=== PATIENT | male | born 1955 | race Caucasian/White ===

== ENCOUNTER → 2020-12-23 | Outpatient (CLI) | payer MEDICARE ==
[2020-12-23 11:43] LABS: Basophils # (A) 0.1 k/uL (0-0.2); Basophils % (A) 1 %; Eosinophils # (A) 0.2 k/uL (0-0.7); Eosinophils % (A) 2 %; HCT 42.3 % (39.0-53.0); HGB 13.2 gm/dL (13.0-17.5); Lymphocytes # (A) 1.4 k/uL (1.0-4.8); Lymphocytes % (A) 15 %; MCH 33.2 pg (25.0-35.0); MCHC 31.2 g/dL (31.0-37.0); MCV 106.5 fL (80.0-100.0); Macrocytosis Moderate; Monocytes # (A) 0.4 k/uL (0-1.0); Monocytes % (A) 4 %; Neutrophils # (A) 7.4 k/uL (1.3-7.7); Neutrophils % (A) 78 %; Platelet Count 182 k/uL (150-450); RBC 3.97 m/uL (4.30-5.90); RDW 13.1 % (11.5-15.5); WBC 9.6 k/uL (3.8-10.6)
[2020-12-23 12:25] LABS: ALT <6 U/L (4-49); AST 24 U/L (17-59); African American GFR (CKD) 63 (>60 ml/min/1.73 sqM); Albumin 3.7 g/dL (3.5-5.0); Alkaline Phosphatase 122 U/L (38-126); Anion Gap 6 mmol/L; Blood Urea Nitrogen 20 mg/dL (9-20); Carbon Dioxide 31 mmol/L (22-30); Chloride 98 mmol/L (98-107); Glucose 231 mg/dL (74-99); Non-African American GFR(CKD) 55 (>60 ml/min/1.73 sqM); Potassium 4.3 mmol/L (3.5-5.1); Sodium 135 mmol/L (137-145); Total Bilirubin 0.5 mg/dL (0.2-1.3); Total Protein 6.3 g/dL (6.3-8.2)
[2020-12-23 13:02] LABS: Appearance,Urine Clear (Clear); Bilirubin,Urine Negative (Negative); Blood,Urine Negative (Negative); Color,Urine Light Yellow; Glucose,Urine (UA) Trace (Negative); Hyaline Casts,Urine 1 /lpf (0-2); Ketones,Urine Negative (Negative); Leukocyte Esterase,Urine Moderate (Negative); Nitrite,Urine Negative (Negative); PH, Urine 6.5 (5.0-8.0); Protein,Urine Negative (Negative); RBC,Urine 1 /hpf (0-5); Specific Gravity,Urine 1.001 (1.001-1.035); Urobilinogen,Urine <2.0 mg/dL (<2.0); WBC,Urine 8 /hpf (0-5)
== END | disposition home or self-care (01) ==
LOC: LABPAT 10:09
PROVIDERS: ATTEND Urology
DX: Z01.818 Encounter for other preprocedural examination (principal); N52.9 Male erectile dysfunction, unspecified
CPT/HCPCS: 36415; 80053; 81001; 85025

== ENCOUNTER 2020-12-29 07:09 | Day surgery (SDC) | payer MEDICARE ==
[2020-12-23 12:56] VITALS: BMI 23.0
--- NOTE | 2020-12-28 18:46 | P.GSHP ---
History of Present Illness H&P Date: 12/28/20 65 yo male with long history of type 1 DM who has impotence for several years. PDE5 inhibitors no longer work He is not interested in vasoactive injections His physique rules out a vacuum pump He comes for an IPP. The risks and complications including infection, bleeding , pain, lack of satisfaction, failure, erosion among others have been explained understood and accepted. - Constitutional Constitutional: Denies chills, Denies fever - EENT Eyes: denies blurred vision, denies pain Ears, nose, mouth and throat: Denies headache, Denies sore throat - Cardiovascular Cardiovascular: Denies chest pain, Denies shortness of breath - Respiratory Respiratory: Denies cough, Denies 7 - Gastrointestinal Gastrointestinal: Denies abdominal pain, Denies diarrhea, Denies nausea, Denies vomiting - Genitourinary (Female) Genitourinary: Denies dysuria, Denies hematuria - Genitourinary (Male) Genitourinary: Denies dysuria, Denies hematuria - Musculoskeletal Musculoskeletal: Denies myalgias - Integumentary Integumentary: Denies pruritus, Denies rash - Neurological Neurological: Denies numbness, Denies weakness - Psychiatric Psychiatric: Denies anxiety, Denies depression - Endocrine Endocrine: Denies fatigue, Denies weight change Past Medical History Past Medical History: Coronary Artery Disease (CAD), COPD, Diabetes Mellitus, GERD/Reflux, Hypertension, Myocardial Infarction ([place]) Additional Past Medical History / Comment(s): SC 2017 post op after bowel surgery, insulin pump, Parkinsons Last Myocardial Infarction Date:: 2016 History of Any Multi-Drug Resistant Organisms: None Reported Past Surgical History: AICD, Bowel Resection, Coronary Bypass/CABG, Heart Catheterization, Orthopedic Surgery Additional Past Surgical History / Comment(s): 1994-quad bypass, arthroscopy anat knees, "surgery becuase I was peeing too much"-not sure what surgery, anat cataracts Past Anesthesia/Blood Transfusion Reactions: No Reported Reaction Type of Cardiac Device: AICD Device Placement Date:: 08/23/2017- Loladex Smoking Status: Former smoker - Past Family History Mother Family Medical History: Cancer Additional Family Medical History / Comment(s): breast cancer Father Family Medical History: Cancer Brother(s) Family Medical History: Cancer Medications and Allergies Home Medications Medication Instructions Recorded Confirmed Type Amitriptyline HCl [Elavil] 50 mg PO HS 12/23/20 12/23/20 History Aspirin [Adult Low Dose Aspirin EC] 81 mg PO QAM 12/23/20 12/23/20 History Atorvastatin [Lipitor] 20 mg PO HS 12/23/20 12/23/20 History Carbidopa-Levodopa 25-100 mg 1 each PO QID 12/23/20 12/23/20 History [Sinemet 25-100] Cholecalciferol (Vitamin D3) 125 mcg PO DAILY 12/23/20 12/23/20 History [Vitamin D3 (5000 Iu)] Clopidogrel Bisulfate [Plavix] 75 mg PO DAILY 12/23/20 12/23/20 History Cyanocobalamin (Vitamin B-12) 1,000 mcg PO DAILY 12/23/20 12/23/20 History [Vitamin B-12] Famotidine 40 mg PO DAILY 12/23/20 12/23/20 History Ferrous Sulfate [Feosol] 325 mg PO DAILY 12/23/20 12/23/20 History Fexofenadine HCl [Steff Allergy] 180 mg PO DAILY PRN 12/23/20 12/23/20 History Fludrocortisone [Florinef] 0.05 mg PO BID 12/23/20 12/23/20 History Fluticasone Nasal [place] [Flonase 1 spray EA NOSTRIL DAILY 12/23/20 12/23/20 History Nasal [place]] Furosemide [Lasix] 20 mg PO DAILY 12/23/20 12/23/20 History Gabapentin 300 mg PO TID 12/23/20 12/23/20 History Insulin Aspart (For Pump) [NovoLOG 0.01 unit SQ-PUMP CONTINUOUS 12/23/20 12/23/20 History (For Pump)] Isosorbide Mononitrate [Isosorbide 30 mg PO DAILY 12/23/20 12/23/20 History Mononitrate ER] Magnesium Oxide 800 mg PO BID 12/23/20 12/23/20 History Metoprolol Tartrate [Lopressor] 25 mg PO BID 12/23/20 12/23/20 History Montelukast [Singulair] 10 mg PO HS 12/23/20 12/23/20 History Pantoprazole [Protonix] 40 mg PO QAM 12/23/20 12/23/20 History Potassium Chloride 20 meq PO BID 12/23/20 12/23/20 History Tamsulosin [Flomax] 0.4 mg PO DAILY 12/23/20 12/23/20 History lisinopriL [Zestril] 2.5 mg PO DAILY 12/23/20 12/23/20 History rOPINIRole HCL [Requip] 2 mg PO HS 12/23/20 12/23/20 History traMADol HCL [Ultram] 50 mg PO BID PRN 12/23/20 12/23/20 History Allergies Allergy/AdvReac Type Severity Reaction Status Date / Time No Known Allergies Allergy Verified 12/23/20 12:29 Surgical - Exam - General well developed, well nourished, no distress - Eyes PERRL - ENT no hearing loss - Neck trachea midline - Respiratory normal expansion, normal respiratory effort - Cardiovascular Rhythm: regular - Abdomen Abdomen: soft, non tender - Genitourinary normal penis with no external lesions, testicles present - Integumentary no rash, no growths - Neurologic normal coordination, normal sensation - Musculoskeletal normal gait, normal posture - Psychiatric oriented to time, oriented to person, oriented to place, speech is normal, memory intact Assessment and Plan Assessment: Impression: 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
[~2020-12-29 07:09] MED LIST: AMPICILLIN 1,000 MG in SODIUM CHLORIDE 0.9% 50 ML IVPB PRN; DEXAMETHASONE SOD PHOSPHATE 4 MG/ML 1 ML VIAL IV ONE; LACTATED RINGERS 1,000 ML IV SCH; LIDOCAINE 1% (10MG/ML) FOR IV START INTRADERMA PRN; ONDANSETRON 4 MG/2 ML VIAL IVP ONE
[2020-12-29 07:45] VITALS: TEMP 98.3
[2020-12-29 08:05] LABS: Glucose,Whole Blood 156 mg/dL (75-99)
[2020-12-29] MEDS ORDERED: fentaNYL (PF) 50 MCG/ML 2 ML AMP ONE (08:12)
[2020-12-29] MEDS ORDERED: KETOROLAC 15 MG/ML 1 ML VIAL ONE (08:12)
[2020-12-29] MEDS ORDERED: SUCCINYLCHOLINE CHLORIDE 100 MG/5 ML SYR IV ONE (08:12)
[2020-12-29] MEDS ORDERED: LIDOCAINE 1% INJ 10MG/ML (20 ML MDV) ONE (08:12)
[2020-12-29] MEDS ORDERED: GLYCOPYRROLATE 0.2 MG/ML 2 ML VIAL ONE (08:12)
[2020-12-29] MEDS ORDERED: ROCURONIUM 10 MG/ML (5 ML VIAL) IV ONE (08:12)
[2020-12-29] MEDS ORDERED: NEOSTIGMINE 1 MG/ML 10 ML VIAL ONE (08:12)
[2020-12-29] MEDS ORDERED: MIDAZOLAM 2 MG/2 ML VIAL ONE (08:12)
[2020-12-29] MEDS ORDERED: PROPOFOL 10 MG/ML 20 ML VIAL IV ONE (08:12)
[2020-12-29] MEDS: GENTAMICIN 110 MG in SODIUM CHLORIDE 0.9% 100 ML IVPB PRN ×2 (08:21→08:42)
[2020-12-29] MEDS ORDERED: GENTAMICIN 80 MG in SODIUM CHLORIDE 0.9% 200 ML IRRIGATION ONE (08:46)
--- NOTE | 2020-12-29 09:39 | P.OP ---
Date of Procedure: 12/29/20 Preoperative Diagnosis: Esperanza impotence secondary to diabetes mellitus Postoperative Diagnosis: Same Procedure(s) Performed: Insertion of inflatable penile prosthesis, AMS, CX series 700 with 65 mL reservoir 18 cm +1 cm rear-tip hydrostatic tubing tester Anesthesia: HILLARY Surgeon: Juan F Moon Estimated Blood Loss (ml): 25 Pathology: none sent Condition: stable Disposition: PACU Indications for Procedure: Patient is 65. He is a 50 year history of insulin-dependent diabetes. He has impotence. He failed oral medications. He declines vasoactive injections. He comes for a penile implant. Description of Procedure: Patient is brought to the operating suite. He is given a general endotracheal anesthesia. He is prepped and draped sterilely. A midline infrapubic incision is made. I dissect down through the subcutaneous tissue. The lower end of the rectus fascias identified and opened. The prevesical space is developed. I then approached the penis. Each corpora cavernosum identified and cleaned from surrounding connective tissue. Stay stitches with 3-0 PDS are placed in each corpora. Corporotomies were made bilaterally. The corpora dilated proximally and distally first with Metzenbaum scissors and then Hegar dilators 9-13. I measured the corpora 9 cm proximal 10 cm distal on the right and 10 cm proximal and 9 cm distal on the left. I thus we'll use an 18 cm CX cylinder with 1 cm rear tip extenders and a 65 mL balloon. An implant or prepped on the back table. The reservoir was placed in the prevesical space and the tubing brought out through the right external inguinal ring. It is insufflated to 65 mL and sits nicely. The rectus fascias closed with a running 0 PDS. His the Torito introducer and pass the implant distally through the head of the penis with the Ayush needle bilaterally. The implant is then placed proximally and then inflated and seats nicely bilaterally. The corporotomies are closed with 3-[address] the in the scrotum with the button a seen anterior. It sits nicely. Then connected the reservoir to the pump with straight connects a. Then pump and deflate the implant and seats nicely without ST deformity. His irrigated thoroughly with antibiotic solution. The wound is closed with 3-0 chromic subcutaneous and then a 4-0 Vicryl subcuticular. Shows awake and returned recovery room in good condition. Prior this a Davison catheter is passed in and out with clear urine return and no difficulty. The procedure well be discharged home upon recovery and found the office in one week. Blood loss is approximately 25 mL.
[2020-12-29] MEDS ORDERED: LACTATED RINGERS 1,000 ML IV ONE (10:03)
[2020-12-29 10:25] VITALS: RESP 16
[2020-12-29 10:26] LABS: Glucose,Whole Blood 141 mg/dL (75-99)
[2020-12-29 11:03] VITALS: BP 140/78; PULSE 59
== END 2020-12-29 11:22 | disposition home or self-care (01) ==
LOC: OR 07:09
PROVIDERS: ATTEND Urology
DX: E10.69 Type 1 diabetes mellitus with other specified complication (principal); N52.1 Erectile dysfunction due to diseases classified elsewhere; I25.10 Atherosclerotic heart disease of native coronary artery without angina pectoris; J44.9 Chronic obstructive pulmonary disease, unspecified; K21.9 Gastro-esophageal reflux disease without esophagitis; I10 Essential (primary) hypertension; I25.2 Old myocardial infarction; E78.5 Hyperlipidemia, unspecified; I42.9 Cardiomyopathy, unspecified; I25.810 Atherosclerosis of coronary artery bypass graft(s) without angina pectoris; E78.2 Mixed hyperlipidemia; G20 Parkinson's disease; Z87.891 Personal history of nicotine dependence; Z79.4 Long term (current) use of insulin; Z79.82 Long term (current) use of aspirin; Z79.899 Other long term (current) drug therapy; Z80.3 Family history of malignant neoplasm of breast; Z95.1 Presence of aortocoronary bypass graft; Z95.810 Presence of automatic (implantable) cardiac defibrillator
CPT/HCPCS: 54401; C1813; J2250; J1580 ×2; J1100; J2710; J2405; J2001; J3010; J0290; J1885; J0330; J2704

== ENCOUNTER 2022-06-15 07:39 | Day surgery (SDC) | payer MEDICARE ==
[~2022-06-15 07:39] MED LIST changes: +ACETAMINOPHEN TAB 500 MG TAB PO PRN; -AMPICILLIN 1,000 MG in SODIUM CHLORIDE 0.9% 50 ML IVPB PRN; +GABAPENTIN 300 MG CAP PO PRN; -LACTATED RINGERS 1,000 ML IV SCH; -LIDOCAINE 1% (10MG/ML) FOR IV START INTRADERMA PRN; +MELOXICAM 7.5 MG TAB PO PRN; +ONDANSETRON 4 MG/2 ML VIAL IVP PRN; +TRANEXAMIC ACID IN NACL,ISO-OS 1,000 MG in SALINE 1 100ML.BAG IVPB PRN
[2022-06-15] MEDS ORDERED: LACTATED RINGERS 1,000 ML IV ONE ×3 (08:09→10:12)
[2022-06-15 08:19] LABS: Glucose,Whole Blood 63 mg/dL (70-110)
[2022-06-15] MEDS ORDERED: DEXTROSE 50% SYRINGE 50 ML IVP ONE (08:24)
[2022-06-15 08:49] LABS: Calcium 8.6 mg/dL (8.4-10.2); Potassium 3.5 mmol/L (3.5-5.1)
[2022-06-15 08:57] LABS: Glucose,Whole Blood 102 mg/dL (70-110)
[2022-06-15] MEDS ORDERED: MIDAZOLAM 2 MG/2 ML VIAL IVP ONE (09:10)
[2022-06-15] MEDS ORDERED: TEMAZEPAM 15 MG CAP PO PRN (09:18)
[2022-06-15] MEDS ORDERED: bisacodyL 10 MG SUPP RECTAL PRN (09:18)
[2022-06-15] MEDS ORDERED: ONDANSETRON 4 MG/2 ML VIAL IVP PRN (09:18)
[2022-06-15] MEDS ORDERED: MAGNESIUM HYDROXIDE 2,400 MG/10 ML CUP PO PRN (09:18)
[2022-06-15] MEDS ORDERED: ACETAMINOPHEN TAB 325 MG TAB PO PRN (09:18)
[2022-06-15] MEDS ORDERED: NA PHOS,M-B/NA PHOS,DI-BA 133 ML ENEMA RECTAL PRN (09:18)
[2022-06-15] MEDS ORDERED: NALOXONE 0.4 MG/ML 1 ML VIAL IV PRN (09:18)
[2022-06-15] MEDS ORDERED: HYDROmorphone 0.5 MG/0.5 ML SYRINGE IVP PRN ×3 (09:18)
[2022-06-15] MEDS ORDERED: HYDROcodone/APAP 10-325MG 1 EACH TAB PO PRN (09:21)
[2022-06-15] MEDS ORDERED: fentaNYL (PF) 50 MCG/ML 2 ML AMP ONE (09:32)
[2022-06-15] MEDS ORDERED: ROPIVACAINE 5 MG/ML 30 ML VIAL ONE (09:32)
[2022-06-15] MEDS ORDERED: PROPOFOL 10 MG/ML 20 ML VIAL IV ONE (09:32)
[2022-06-15] MEDS ORDERED: TRANEXAMIC ACID IN NACL,ISO-OS 1,000 MG/100 ML BAG ONE (09:32)
[2022-06-15] MEDS ORDERED: MIDAZOLAM 2 MG/2 ML VIAL ONE (09:32)
[2022-06-15] MEDS ORDERED: ceFAZolin 3,000 MG in SODIUM CHLORIDE 0.9% IRRIGATIO 3,000 ML IRRIGATION ONE (10:05)
[2022-06-15] MEDS ORDERED: ROPIVACAINE 0.2%-NS ON-Q PUMP 1,090 MG, EMPTY PAIN BALL 1 EACH MISCELLANE PRN (11:27)
--- NOTE | 2022-06-15 11:30 | P.ANPRN ---
Procedure Note - Anesthesia - Nerve Block Performed Right Adductor Canal Infusion Time Out Performed: Yes (0910) Date of Procedure: 06/15/22 Procedure Start Time: : Procedure Stop Time: :18 Location of Patient: PreOp Indication: Acute Post-Operative Pain, Dx/Pain Location (Right Knee), Requested by Surgeon Specifically requested for management of pain by DrRubén: Tayo Horn Sedation Type: Sedate with meaningful contact maintained Preparation: Sterile Prep, Sterile Dressing Position: Supine Catheter: Indwelling Needle Types: Pajunk Needle Gauge: 18 Ultrasound used to visualize needle placement: Yes Ultrasound used to observe medication spread: Yes Injectate: 0.5% Ropivacaine (see comment for volume) (15 cc) Blood Aspirated: No Pain Paresthesia on Injection Noted: No Resistance on Injection: Normal Image Stored and Saved: Yes Events: Uneventful and Well Tolerated Right iPack Single Time Out Performed: Yes Date of Procedure: 06/15/22 Location of Patient: PreOp Indication: Requested by Surgeon Specifically requested for management of pain by DrRubén: Tayo Horn Sedation Type: Sedate with meaningful contact maintained Preparation: Sterile Prep Position: Left Lateral Catheter: None Needle Types: Pajunk Needle Gauge: 21 Ultrasound used to visualize needle placement: Yes Ultrasound used to observe medication spread: Yes Injectate: 0.5% Ropivacaine (see comment for volume) (15 cc) Blood Aspirated: No Pain Paresthesia on Injection Noted: No Resistance on Injection: Normal Image Stored and Saved: Yes Events: Uneventful and Well Tolerated
[2022-06-15 11:56] LABS: Glucose,Whole Blood 114 mg/dL (70-110)
--- NOTE | 2022-06-15 12:27 | XR ---
EXAMINATION TYPE: XR knee limited RT DATE OF EXAM: 06/15/2022 CLINICAL HISTORY: Right knee pain and arthritis status post total knee replacement. TECHNIQUE: Portable AP and crosstable lateral views of the right knee are obtained immediately posto peratively. COMPARISON: None FINDINGS: Metallic hardware from total right knee arthroplasty is seen and appears satisfactory in a lignment and position. There is evidence of recent surgery with diffuse subcutaneous gas and soft ti ssue swelling noted. IMPRESSION: METALLIC HARDWARE FROM TOTAL RIGHT KNEE ARTHROPLASTY IS SATISFACTORY IN ALIGNMENT.
[2022-06-15] MEDS: HYDROmorphone 0.5 MG/0.5 ML SYRINGE IVP PRN ×3 (12:29→13:27)
[2022-06-15] MEDS: LACTATED RINGERS 1,000 ML IV SCH ×3 (13:34→18:04)
[2022-06-15] MEDS ORDERED: INSPUCOR MISCELLANE PRN (14:52)
[2022-06-15] MEDS ORDERED: INSULIN ASPART (NovoLOG) 100 UNIT/ML VIAL SQ PRN (14:52)
[2022-06-15] MEDS ORDERED: INSULIN PUMP BASAL RATES 1 EACH MISC MISCELLANE PRN (14:52)
[2022-06-15] MEDS ORDERED: Insulin Aspart (For Pump) 100 UNIT/ML VIAL SQ-PUMP SCH (15:15)
[2022-06-15] MEDS: HYDROcodone/APAP 10-325MG 1 EACH TAB PO PRN ×2 (15:19→21:11)
--- NOTE | 2022-06-15 16:22 | P.CONS ---
History of Present Illness - Reason for Consult Consult date: 06/15/22 Medical management Requesting physician: Tayo Horn - Chief Complaint Right knee pain - History of Present Illness This is a pleasant 67-year-old patient, follows with Dr. Merida. Chronic stable medical conditions include CAD with a prior history of bypass before by Dr. Gold, diabetes, GERD, hypertension, hyperlipidemia, hypothyroid. Patient has undergone right total knee arthroplasty. Postprocedure pain is controlled. No nausea vomiting. Resting in bed. Review of systems: GEN.: Tired EYES: None HEENT: None NECK: None RESPIRATORY: None CARDIOVASCULAR: None GASTROINTESTINAL: None GENITOURINARY: None MUSCULOSKELETAL: Joint pains] LYMPHATICS: None HEMATOLOGICAL: None PSYCHIATRY: None NEUROLOGICAL: None Past medical history to include: CAD with a bypass, diabetes, GERD, hypertension, hyperlipidemia, hypothyroid, AICD, coronary bypass Social history: Lives at a fpc. Smoked for about 30 years stopped about 8 years ago. No alcohol. Physical examination: VITAL SIGNS: 97.7, 65, 16, 105% 61, 97% room air GENERAL: BMI 21.8, reclining in bed awake not in distress. EYES: Pupils equal. Conjunctiva normal. HEENT: External appearance of nose and ears normal, oral cavity grossly normal. NECK: JVD not raised; masses not palpable. HEART: First and second heart sounds are normal; no edema. LUNGS: Respiratory rate normal; clear to auscultation. ABDOMEN: Soft, nontender, liver spleen not palpable, no masses palpable. PSYCH: Alert and oriented x3; mood and affect normal. MUSCULOSKELETAL:No Clubbing/cyanosis;muscles-grossly intact, evidence of OA. Dressing over the right knee NEUROLOGICAL: Cranial nerves grossly intact; no facial asymmetry, power and sensation grossly intact. LYMPHATICS: No lymph nodes palpable in the axilla and neck INVESTIGATIONS, reviewed in the clinical context: Potassium 3.5 BUN 19 creatinine 1.4 Assessment and plan: -Right total knee arthroplasty. Pain control. Due to prophylaxis. -CAD with a prior history of bypass Aspirin, Lopressor, -Restless leg syndrome Recurrent -Parkinson's disease Sinemet 2500 one tablet 4 times a day -Hyperlipidemia Lipitor -Essential hypertension Zestril, Lopressor -GERD Protonix -BPH Flomax Home medications reviewed. Pain control. DVT prophylaxis. Activity per orthopedics. Care was discussed with the patient. Questions answered. Thank you Dr. Horn Past Medical History Past Medical History: Coronary Artery Disease (CAD), Diabetes Mellitus, GERD/Reflux, Hyperlipidemia, Hypertension, Myocardial Infarction ([place]), Thyroid Disorder Last Myocardial Infarction Date:: 04/2017 History of Any Multi-Drug Resistant Organisms: None Reported Past Surgical History: AICD, Coronary Bypass/CABG, Heart Catheterization, Pacemaker Additional Past Surgical History / Comment(s): REPAIR OF DIAPHRAGM HOLE. ([facility] HIATAL HERNIA REPAIRED. Catarac surgery 2017 Past Anesthesia/Blood Transfusion Reactions: No Reported Reaction Type of Cardiac Device: AICD Device Placement Date:: 08/26/17 Past Psychological History: No Psychological Hx Reported Smoking Status: Former smoker Past Alcohol Use History: None Reported Past Drug Use History: None Reported Additional Drug Use History / Comment(s): patient states he smoked for 30 years and "started in his 20's. Stopped about 8 years ago" - Past Family History Mother Family Medical History: Cancer Additional Family Medical History / Comment(s): BREAST Father Family Medical History: Cancer Brother(s) Family Medical History: Cancer Additional Family Medical History / Comment(s): ESOPHAGEAL CANCER Medications and Allergies Home Medications Medication Instructions Recorded Confirmed Type Aspirin [Adult Low Dose Aspirin EC] 81 mg PO QAM 12/23/20 06/12/22 History Atorvastatin [Lipitor] 20 mg PO HS 12/23/20 06/12/22 History Carbidopa-Levodopa 25-100 mg 1 each PO QID 12/23/20 06/12/22 History [Sinemet 25-100] Cholecalciferol (Vitamin D3) 125 mcg PO DAILY 12/23/20 06/12/22 History [Vitamin D3 (5000 Iu)] Clopidogrel Bisulfate [Plavix] 75 mg PO DAILY 12/23/20 06/12/22 History Cyanocobalamin (Vitamin B-12) 1,000 mcg PO DAILY 12/23/20 06/12/22 History [Vitamin B-12] Famotidine 40 mg PO QAM 12/23/20 06/12/22 History Ferrous Sulfate [Feosol] 325 mg PO DAILY 12/23/20 06/12/22 History Fludrocortisone [Florinef] 0.05 mg PO BID 12/23/20 06/12/22 History Fluticasone Nasal [place] [Flonase 1 spray EA NOSTRIL DAILY 12/23/20 06/12/22 History Nasal [place]] Furosemide [Lasix] 20 mg PO QAM 12/23/20 06/12/22 History Gabapentin 300 mg PO TID 12/23/20 06/12/22 History Insulin Aspart (For Pump) [NovoLOG 0.01 unit SQ-PUMP CONTINUOUS 12/23/20 06/12/22 History (For Pump)] Isosorbide Mononitrate [Isosorbide 30 mg PO QAM 12/23/20 06/12/22 History Mononitrate ER] Magnesium Oxide 800 mg PO BID 12/23/20 06/12/22 History Metoprolol Tartrate [Lopressor] 25 mg PO BID 12/23/20 06/12/22 History Montelukast [Singulair] 10 mg PO HS 12/23/20 06/12/22 History Pantoprazole [Protonix] 40 mg PO QAM 12/23/20 06/12/22 History Potassium Chloride [Potassium 20 meq PO BID 12/23/20 06/12/22 History Chloride ER] Tamsulosin [Flomax] 0.4 mg PO DAILY 12/23/20 06/12/22 History lisinopriL [Zestril] 2.5 mg PO QAM 12/23/20 06/12/22 History rOPINIRole HCL [Requip] 2 mg PO HS 12/23/20 06/12/22 History traMADol HCL [Ultram] 50 mg PO BID PRN 12/23/20 06/12/22 History Allergies Allergy/AdvReac Type Severity Reaction Status Date / Time No Known Allergies Allergy Verified 06/12/22 11:37 Physical Exam Vitals: Vital Signs Temp Pulse Pulse Resp BP BP Pulse Ox 06/15/22 13:50 97.7 F 65 16 105/61 97 06/15/22 13:25 64 16 113/62 97 06/15/22 12:55 69 16 118/63 96 06/15/22 12:40 65 16 119/64 97 06/15/22 12:25 61 18 116/66 97 06/15/22 12:10 62 16 114/62 97 06/15/22 11:55 74 16 109/60 96 06/15/22 11:39 96.9 F L 71 18 95/69 96 06/15/22 09:28 66 18 112/63 99 06/15/22 08:12 98.1 F 82 18 139/65 97 Intake and Output 06/15/22 06/15/22 06/15/22 06:59 14:59 22:59 Intake Total 1651 Output Total 100 Balance 1551 Intake: IV 1651 Output: Estimated Blood Loss 100 Other: Weight 71 kg Results CBC & Chem 7: 06/15/22 08:13 Labs: Abnormal Lab Results - Last 24 Hours (Table) 06/15/22 06/15/22 06/15/22 Range/Units 08:13 08:17 11:53 Carbon Dioxide 31 H (22-30) mmol/L Creatinine 1.40 H (0.66-1.25) mg/dL Glucose 54 L (74-99) mg/dL POC Glucose (mg/dL) 63 L 114 H (70-110) mg/dL
[2022-06-15] MEDS: GABAPENTIN 300 MG CAP PO SCH ×2 (16:37→22:59)
[2022-06-15] MEDS: CARBIDOPA-LEVODOPA 25-100 MG 1 EACH TAB PO SCH ×3 (16:38→22:59)
[2022-06-15 20:38] LABS: Glucose,Whole Blood 214 mg/dL (70-110)
[2022-06-15] MEDS: MAGNESIUM OXIDE 400 MG TAB PO SCH (21:10)
[2022-06-15] MEDS: ATORVASTATIN 20 MG TAB PO SCH (21:10)
[2022-06-15] MEDS: SENNOSIDES-DOCUSATE SODIUM 1 EACH TAB PO SCH (21:10)
[2022-06-15] MEDS: METOPROLOL TARTRATE 25 MG TAB PO SCH (21:11)
[2022-06-15] MEDS: MONTELUKAST 10 MG TAB PO SCH (21:11)
[2022-06-15] MEDS: POTASSIUM CHLORIDE ER 20 MEQ TAB.ER PO SCH (21:11)
--- NOTE | 2022-06-15 21:21 | OP ---
OPERATIVE REPORT PREOPERATIVE DIAGNOSIS: Right knee osteoarthrosis. POSTOPERATIVE DIAGNOSIS: Right knee osteoarthrosis. PROCEDURE PERFORMED: Right total knee arthroplasty. ANESTHESIA: Spinal with sedation. ESTIMATED BLOOD LOSS: 100 mL. TOURNIQUET TIME: 61 minutes at 250 mmHg. COMPLICATIONS: None apparent. DRAINS: None. DISPOSITION: Postanesthesia care unit. INDICATIONS FOR PROCEDURE: Juan F is a very pleasant 67-year-old male with longstanding history of right knee pain. History and physical examination are consistent with advanced right knee osteoarthrosis. He has been through significant nonoperative management up to this point. Further treatment options were discussed, and he has decided to go forward with the right total knee arthroplasty. Risks of procedure were discussed with him in detail. These risks included, but were not limited to risk of infection, nerve damage, bleeding, pain, and a small risk of deep vein thrombosis which could lead to fatal pulmonary embolism. There is also risk of loosening of the implant which could require revision operation. The patient understands these risks. All of his questions were answered to his satisfaction. An appropriate informed consent was obtained. DESCRIPTION OF PROCEDURE: The patient was identified in the preoperative holding area. The surgical site was marked by both the patient and myself. He was given 2 g of Ancef IV for prophylactic purposes. He was then transferred to the operative suite. He was placed supine on the operating room table. Spinal anesthetic was then administered and dosed per the Anesthesia Department without apparent complication. Examination under anesthesia was then performed. The patient was 5 to 7 degrees shy of full extension. He had 100 degrees of flexion, and the medial collateral ligament, lateral collateral ligament, and posterior cruciate ligaments were stable. Tourniquet was then placed high on the right upper thigh and well-padded in preparation for surgery. The patient's right lower extremity was then prepped and draped in usual sterile fashion. Standard surgical pause was undertaken to ensure that we were operating the correct site and that appropriate preoperative antibiotics had been given. All staff in the room were in agreement, and we proceeded. The outlines of the patella were marked with a surgical pen. A planned 12 cm vertical incision centered over the patella was marked with a surgical pen. The leg was then exsanguinated with an Esmarch dressing. The knee was then flexed, and the tourniquet was inflated to 250 mmHg. The total tourniquet time for the procedure was 61 minutes. Incision was then made with a 10-blade scalpel. Dissection was carried down sharply overlying the fascia. Great care was taken to minimize the skin flaps. The knee was then exposed using a standard medial parapatellar approach. A small cuff of quadriceps tendon was then left for suturing. He was in a bit of varus preoperatively. A standard medial release was then made. Superficial medial collateral ligament was dissected off the bone around to the posterior aspect of the proximal tibia. The medial meniscus was then excised as well. The lateral meniscus was also released anteriorly. The leg was then externally rotated. The patella was everted. The knee was flexed. The retractors were then placed to protect the collateral ligaments. I then proceeded to remove the infrapatellar fat pad. This was excised sharply tangentially with fibers of the patellar tendon. I then proceeded to remove the peripheral osteophytes. This was done with a rongeur. I then proceeded with the distal femoral resection. He did have a small flexion contracture. A planned 11 mm resection was then done. The femoral canal was then entered in the midline of the femur approximately 10 mm anterior to the origin of the posterior cruciate ligament. The jenny was then advanced down to the center of the femur and placed intramedullary. Based on the preoperative radiographs, the angle between the anatomic and mechanical axis of the femur was approximately 4 to 5 degrees. The valgus angle of the distal femoral cutting guide was then set at 4 degrees for the right knee. The distal femoral cutting guide was then advanced over the intramedullary jenny. This was seated firmly against the femur. I then as mentioned planned to take 9 mm off the distal femur. The cutting block was then secured onto the femur with pins. The jig was then removed. The distal femoral cut was made through the slot of the block. The pins were then removed. The distal femoral cutting block was removed. The accuracy of the distal femoral cuts was checked with 2 flat bars. I then proceeded with femoral sizing. Posterior referencing sizing guide was held firmly against the resected distal surface of the femur. The posterior condyles were resting on the posterior plane of the guide. The sizing stylus was then placed onto the anterior femur. The size was measured as a size 7. I then assessed for femoral rotation. The plan was for 3 degrees of external rotation. Three degrees of external rotation was placed onto the jig. These holes were then marked. I then confirmed the rotation by 3 separate methods. This was done using epicondylar axis as well as Arroyo's line and posterior referencing. It was deemed that the external rotation was proper. I then went forward and placed the femoral cutting block. This was placed over the previously-placed pin holes. The Johnny wing was then placed onto the anterior slots to ensure that we would not notch the anterior femur with the anterior femoral cut. I then proceeded with the anterior femoral cut. This was flush with the anterior cortex of the femur. The posterior cuts were then made followed by the anterior chamfer cut, then the posterior chamfer cut. The cutting block was then removed. Throughout the resection, the collateral ligaments were protected with retractors. I then placed a trial size 7 femur. It fit very nice medial-lateral and fit flush with the distal end of the femur. The drill hole was then made. I then proceeded with the tibial cut. I planned for cruciate-retaining knee. The guide was placed and set for varus and valgus and for slope. The height was set for approximate 2 mm resection from the medial tibial plateau, which was the lower side. I was happy with the alignment and the amount of resection. The cutting block was then pinned to the proximal tibia. The alignment jenny was removed, and the proximal tibia was resected with a reciprocating saw. Again, this was done with retractors protecting the collateral ligaments as well as the posterior cruciate ligament. I then proceeded to evaluate the flexion and extension gaps. A 10 mm block was then placed. The flexion and extension gaps were equal. I then proceeded with resection of the posterior osteophytes. He had very minimal posterior osteophytes. This was done using a curved osteotome. This resected the posterior osteophytes, and posterior capsular stripping was done off the posterior aspect of the femur at this time. The osteophytes were then removed. I then proceeded with resection of the patella. The thickness of the patella was measured using the caliper. The thickness was 22 mm. The thickness of the anticipated patellar dome was taken into account. Resection was then performed and confirmed to be equal in 4 quadrants using a caliper. Approximately 14 mm of bone remained after resection. A 29 x 8 standard patellar trial was then placed. The holes were drilled, and the trial was then placed. I then proceeded with sizing the tibial plate. A size E tibial plate fit very nicely. I then placed the trial femur, the tibial tray, and the patellar button. A 10 mm trial tibial insert was also placed. The components fit very nicely. He had full extension and flexion. The extension and flexion gaps were equal and stable to both varus and valgus stress. The patella tracked appropriately. Tibial tray rotation was then marked with a Bovie. This was externally rotated properly. I then proceeded with tibial preparation. I first drilled the femoral holes and removed the femoral component. The tibial tray was then set for proper external rotation as well as medial and lateral placement onto the tibia. It was then pinned into place. I then proceeded with punching the keel. I then decided to proceed with cementing of all of our components. The knee was thoroughly irrigated with sterile saline solution via pulsed lavage. The lateral genicular artery was identified and cauterized. All blood was removed from the bone of the tibia, femur, and patella with pulsed lavage. I then proceeded with cementing. Two packs of antibiotic bone cement prepared on the back table by surgical supplies sterilizer. I then proceeded with cementing of the tibia first. The cement was impacted into the keel as well as deeply seated into the bone. A second coat of cement was then placed. The tibia was then impacted into place. Excess cement was removed with [place]ens[place]'s and Joker's. I then proceeded with cementing of the femoral component. The femoral component was also cemented using standard technique. Excess cement was removed. A 10 mm trial insert was then placed into the knee. It was brought into full extension with a constant axial load placed until the cement had hardened. The patellar component was then cemented. This was held firmly with a compressive device until the cement had dried. When the cement had dried, the knee was taken out of extension. All excess cement was removed from around the prosthesis. I then trialed the knee with a 10 mm insert. Flexion and extension gaps were appropriate. The knee was stable. It came into full extension. I decided to go forward with a 10 mm Medial Congruent cross-linked cruciate- retaining tibial insert. Polyethylene was then placed onto the tibial tray and locked into place. The knee was then reduced. The knee was again further irrigated with sterile saline solution with antibiotic added. The tourniquet was then deflated. Total tourniquet time for the procedure was 61 minutes at 250 mmHg. Final components were Je Persona size 7 cruciate-retaining femoral component, a size E tibial tray, a 10 mm Medial Congruent cruciate-retaining polyethylene insert, and a 29 x 8 mm patella. I then proceeded with closure. Again, the knee was thoroughly irrigated. The quadriceps tendon and the medial retinaculum were reapproximated with #2 Ethibond suture. The extensor mechanism was then closed with a running #2 Quill suture. Subcutaneous tissues were closed with 2-0 Vicryl interrupted sutures. The skin was closed with a running 3-0 Quill suture. Dermabond was applied to the incision. Sterile compressive dressing was then applied. All sponge and needle counts were deemed correct prior to closure. The patient tolerated the procedure without apparent complication. He was transferred to recovery room in stable condition. MMODL / IJN: [id number] /
[2022-06-15] MEDS: FLUDROCORTISONE 0.1 MG TAB PO SCH (21:29)
[2022-06-15] MEDS: INSPUCOR MISCELLANE SCH (23:33)
[2022-06-16] MEDS: LACTATED RINGERS 1,000 ML IV SCH ×2 (05:06→05:24)
[2022-06-16] MEDS: HYDROcodone/APAP 10-325MG 1 EACH TAB PO PRN (05:22)
[2022-06-16 07:40] LABS: Glucose,Whole Blood 168 mg/dL (70-110)
[2022-06-16 07:59] LABS: African American GFR (CKD) 59 (>60 ml/min/1.73 sqM); Anion Gap 5 mmol/L; Blood Urea Nitrogen 23 mg/dL (9-20); Calcium 8.1 mg/dL (8.4-10.2); Carbon Dioxide 30 mmol/L (22-30); Chloride 102 mmol/L (98-107); Glucose 165 mg/dL (74-99); Non-African American GFR(CKD) 51 (>60 ml/min/1.73 sqM); Sodium 137 mmol/L (137-145)
[2022-06-16] MEDS: CYANOCOBALAMIN 500 MCG TAB PO SCH (08:52)
[2022-06-16] MEDS: FAMOTIDINE 20 MG TAB PO SCH (08:53)
[2022-06-16] MEDS: MAGNESIUM OXIDE 400 MG TAB PO SCH ×2 (08:53→21:02)
[2022-06-16] MEDS: TAMSULOSIN 0.4 MG CAP.ER.24H PO SCH (08:53)
[2022-06-16] MEDS: POTASSIUM CHLORIDE ER 20 MEQ TAB.ER PO SCH ×2 (08:53→21:02)
[2022-06-16] MEDS: PANTOPRAZOLE 40 MG TABLET PO SCH (08:53)
[2022-06-16] MEDS: CLOPIDOGREL 75 MG TAB PO SCH (08:53)
[2022-06-16] MEDS: ISOSORBIDE MONONITRATE ER 30 MG TAB.ER.24H PO SCH (08:53)
[2022-06-16] MEDS: GABAPENTIN 300 MG CAP PO SCH ×3 (08:53→21:02)
[2022-06-16] MEDS: CARBIDOPA-LEVODOPA 25-100 MG 1 EACH TAB PO SCH ×4 (08:53→21:02)
[2022-06-16] MEDS: CHOLECALCIFEROL 125 MCG (5000 IU) TABLET PO SCH (08:54)
[2022-06-16] MEDS: ASPIRIN 81 MG PO SCH (08:54)
[2022-06-16] MEDS: METOPROLOL TARTRATE 25 MG TAB PO SCH ×2 (08:54→21:02)
[2022-06-16] MEDS: FLUDROCORTISONE 0.1 MG TAB PO SCH ×2 (09:05→21:03)
[2022-06-16] MEDS: diazePAM 5 MG TAB PO PRN ×2 (09:05→21:11)
--- NOTE | 2022-06-16 09:16 | P.PN ---
Progress Note - Text Progress Note Date: 06/16/22 Postoperative day # 1 status post total knee arthroplasty, and adductor canal catheter placed for postoperative analgesia, currently at ropivacaine 0.2% 8 mL per hour and continuous infusion, visual analogue scale is 8/10, patient using oral pain medication for breakthrough pain Hague 10/325 every 4 hours when necessary. Assessment and plan= Acute postoperative pain, adductor canal catheter for pain control, pain is not well controlled, recommend to increase the ropivacaine infusion 0.2% to with 10 mL per hour, continue Hague 10/325 when necessary every 4 hours for breakthrough pain
[2022-06-16] MEDS: INSPUCOR MISCELLANE SCH ×4 (09:18→21:14)
[2022-06-16 10:36] LABS: HCT 31.5 % (39.6-50.0); HGB 10.6 g/dL (13.0-17.0); MCH 35.6 pg (27.0-32.0); MCHC 33.7 g/dL (32.0-37.0); MCV 105.7 fL (80.0-97.0); Mean Platelet Volume 11.8 fL (9.5-12.2); NRBC Per 100 WBC 0 /100 WBCS (0.0-0.0); Platelet Count 142 X 10*3/uL (140-440); RBC 2.98 X 10*6/uL (4.40-5.60); RDW 12.8 % (11.5-14.5); WBC 8.82 X 10*3/uL (4.50-10.00)
[2022-06-16 11:23] LABS: Glucose,Whole Blood 189 mg/dL (70-110)
[2022-06-16] MEDS ORDERED: MULTIVITAMINS, THERA 1 EACH TAB PO SCH (12:00)
[2022-06-16] MEDS ORDERED: oxyCODONE-APAP 7.5-325MG 1 EACH TAB PO PRN (12:26)
[2022-06-16 12:28] LABS: Basophils # (A) 0.04 X 10*3/uL (0.00-0.10); Basophils % (A) 0.5 %; Eosinophils # (A) 0.08 X 10*3/uL (0.04-0.35); Eosinophils % (A) 0.9 %; Immature Grans, Automated 0.3 %; Lymphocytes # (A) 1.52 X 10*3/uL (0.90-5.00); Lymphocytes % (A) 17.2 %; Monocytes # (A) 0.92 X 10*3/uL (0.20-1.00); Monocytes % (A) 10.4 %; Neutrophils # (A) 6.23 X 10*3/uL (1.80-7.70); Neutrophils % (A) 70.7 %
[2022-06-16] MEDS: oxyCODONE-APAP 7.5-325MG 1 EACH TAB PO PRN (13:07)
--- NOTE | 2022-06-16 13:09 | P.PN ---
Subjective Progress Note Date: 06/16/22 Principal diagnosis: Right TKA Patient is seen at bedside this morning. He is postop day #1 from right total knee arthroplasty. He has pain at the surgical site as expected but denies any new complaints. He denies numbness, tingling or calf pain. Review of systems is negative for fever, chills, chest pain, shortness of breath or other Objective - Vital Signs Vital signs: Vital Signs Temp 98.4 F 06/16/22 08:00 Pulse 61 06/16/22 08:00 Resp 18 06/16/22 08:00 BP 117/56 06/16/22 08:00 Pulse Ox 94 L 06/16/22 08:00 FiO2 Intake & Output 06/15/22 06/16/22 06/16/22 18:59 06:59 18:59 Intake Total 2651 Output Total 100 Balance 2551 Weight 71 kg Intake: IV 1651 Intake, IV Titration 1000 Amount Lactated Ringers 1,000 ml 1000 @ 0 mls/hr IV .[facility] Rx#:[id number] Output: Estimated Blood Loss 100 Other: # Voids 1 - Exam Inspection reveals a benign surgical wound. There is no active bleeding or drainage. Neurovascular status is intact throughout the lower extremity with motor and sensation fully intact. Calf is soft and nontender. 2+ dorsalis pedis pulse and less than 2 second cap refill is present. - Constitutional General appearance: Present: no acute distress - Labs CBC & Chem 7: 06/16/22 06:34 06/16/22 06:34 Labs: Abnormal Lab Results - Last 24 Hours (Table) 06/15/22 06/16/22 06/16/22 Range/Units 20:35 06:34 06:34 RBC 2.98 L (4.40-5.60) X 10*6/uL Hgb 10.6 L (13.0-17.0) g/dL Hct 31.5 L (39.6-50.0) % MCV 105.7 H (80.0-97.0) fL MCH 35.6 H (27.0-32.0) pg Plt Count Comment DECREASED A BUN 23 H (9-20) mg/dL Creatinine 1.42 H (0.66-1.25) mg/dL Glucose 165 H (74-99) mg/dL POC Glucose (mg/dL) 214 H (70-110) mg/dL Calcium 8.1 L (8.4-10.2) mg/dL 06/16/22 06/16/22 Range/Units 07:38 11:21 RBC (4.40-5.60) X 10*6/uL Hgb (13.0-17.0) g/dL Hct (39.6-50.0) % MCV (80.0-97.0) fL MCH (27.0-32.0) pg Plt Count Comment BUN (9-20) mg/dL Creatinine (0.66-1.25) mg/dL Glucose (74-99) mg/dL POC Glucose (mg/dL) 168 H 189 H (70-110) mg/dL Calcium (8.4-10.2) mg/dL Assessment and Plan (1) Osteoarthritis of right knee Narrative/Plan: He will continue with routine postop orthopedic protocol including pain management, wound care, PT, DVT prophylaxis and medical management. Expect that he will transfer to home tomorrow Current Visit: Yes Status: Acute Priority: Medium Code(s): M17.11 - UNILATERAL PRIMARY OSTEOARTHRITIS, RIGHT KNEE SNOMED Code(s): 573737512094084 Time with Patient: Less than 30
--- NOTE | 2022-06-16 13:34 | P.PN ---
Progress Note - Text Progress Note Date: 06/16/22 - Chief Complaint Right knee pain Hospital course This is a pleasant 67-year-old patient, follows with Dr. Merida. Chronic stable medical conditions include CAD with a prior history of bypass before by Dr. Gold, diabetes, GERD, hypertension, hyperlipidemia, hypothyroid. Patient has undergone right total knee arthroplasty. Postprocedure pain is controlled. No nausea vomiting. Resting in bed. June 16: Pain in the right knee. no nausea vomiting. Tolerating diet. Discussed with patient. Did walk in the hallway with physical therapy. Active Medications Acetaminophen (Acetaminophen Tab 325 Mg Tab) 650 mg PO Q4HR PRN PRN Reason: Pain Scale 1 to 5 Stop: 07/15/22 09:19 Aspirin (Aspirin 81 Mg) 81 mg PO QAM [facility] Last Admin: 06/16/22 08:54 Dose: 81 mg Atorvastatin Calcium (Atorvastatin 20 Mg Tab) 20 mg PO HS [facility] Last Admin: 06/15/22 21:10 Dose: 20 mg Bisacodyl (Bisacodyl 10 Mg Supp) 10 mg RECTAL DAILY PRN PRN Reason: Constipation Stop: 07/15/22 09:19 Carbidopa/Levodopa (Carbidopa-Levodopa 25-100 Mg 1 Each Tab) 1 each PO QID [facility] Last Admin: 06/16/22 13:07 Dose: 1 each Cholecalciferol (Cholecalciferol 125 Mcg (5000 Iu) Tablet) 125 mcg PO DAILY [facility] Last Admin: 06/16/22 08:54 Dose: 125 mcg Clopidogrel Bisulfate (Clopidogrel 75 Mg Tab) 75 mg PO DAILY [facility] Last Admin: 06/16/22 08:53 Dose: 75 mg Ropivacaine 1,090 mg/ Bandage/ (Support Products 1 each) 0 mg MISCELLANE Q2H PRN PRN Reason: Breakthrough Pain Stop: 07/15/22 11:28 Last Admin: 06/15/22 12:00 Dose: 1,090 mg Cyanocobalamin (Cyanocobalamin 500 Mcg Tab) 1,000 mcg PO DAILY [facility] Last Admin: 06/16/22 08:52 Dose: 1,000 mcg Diazepam (Diazepam 5 Mg Tab) 2.5 mg PO Q8HR PRN PRN Reason: Mild Spasms Stop: 07/15/22 09:19 Last Admin: 06/16/22 09:05 Dose: 2.5 mg Famotidine (Famotidine 20 Mg Tab) 40 mg PO [facility] Last Admin: 06/16/22 08:53 Dose: 40 mg Fludrocortisone Acetate (Fludrocortisone 0.1 Mg Tab) 0.05 mg PO BID [facility] Last Admin: 06/16/22 09:05 Dose: 0.05 mg Gabapentin (Gabapentin 300 Mg Cap) 300 mg PO TID [facility] Last Admin: 06/16/22 08:53 Dose: 300 mg Hydromorphone HCl (Hydromorphone 0.5 Mg/0.5 Ml Syringe) 0.25 mg IVP Q3HR PRN PRN Reason: Pain Scale 4 to 6 Stop: 07/15/22 09:19 Hydromorphone HCl (Hydromorphone 0.5 Mg/0.5 Ml Syringe) 0.125 mg IVP Q3HR PRN PRN Reason: Pain Scale 1 to 3 Stop: 07/15/22 09:19 Hydromorphone HCl (Hydromorphone 0.5 Mg/0.5 Ml Syringe) 0.5 mg IVP Q3HR PRN PRN Reason: Pain Scale 7 to 10 Stop: 07/15/22 09:19 Lactated Ringer's (Lactated Ringers) 1,000 mls @ 20 mls/hr IV .Q24H [facility] Stop: 07/15/22 06:11 Last Admin: 06/16/22 05:06 Dose: 20 mls/hr Lactated Ringer's (Lactated Ringers) 1,000 mls @ 100 mls/hr IV .Q10H [facility] Stop: 07/15/22 09:31 Last Admin: 06/16/22 05:24 Dose: Not Given Insulin Aspart (Insulin Aspart (Novolog) 100 Unit/Ml Vial) 0 unit SQ DAILY PRN PRN Reason: Insulin Pump Replacement Isosorbide Mononitrate (Isosorbide Mononitrate Er 30 Mg Tab.Er.24h) 30 mg PO [facility] Last Admin: 06/16/22 08:53 Dose: 30 mg Lisinopril (Lisinopril 2.5 Mg Tab) 2.5 mg PO [facility] Last Admin: 06/16/22 08:53 Dose: 2.5 mg Magnesium Hydroxide (Magnesium Hydroxide 2,400 Mg/10 Ml Cup) 2,400 mg PO DAILY PRN PRN Reason: Constipation Stop: 07/15/22 09:19 Magnesium Oxide (Magnesium Oxide 400 Mg Tab) 800 mg PO BID [facility] Last Admin: 06/16/22 08:53 Dose: 800 mg Metoprolol Tartrate (Metoprolol Tartrate 25 Mg Tab) 25 mg PO BID [facility] Last Admin: 06/16/22 08:54 Dose: 25 mg Miscellaneous Information (Insulin Pump Basal Rates 1 Each Misc) 1 each MISCELLANE Q6HR PRN; Protocol PRN Reason: Blood Sugar - High Miscellaneous Information (Insulin Pump Correction Bolus 1 Unit Misc) 0 unit MISCELLANE ACHS [facility]; Protocol Last Admin: 06/16/22 13:09 Dose: 2.825 unit Montelukast Sodium (Montelukast 10 Mg Tab) 10 mg PO [facility] Last Admin: 06/15/22 21:11 Dose: 10 mg Multivitamins (Multivitamins, Thera 1 Each Tab) 1 each PO DAILY@1200 [facility] Stop: 07/16/22 12:01 Last Admin: 06/16/22 08:53 Dose: 1 each Naloxone HCl (Naloxone 0.4 Mg/Ml 1 Ml Vial) 0.2 mg IV Q2M PRN PRN Reason: Opioid Reversal Stop: 07/15/22 09:19 Ondansetron HCl (Ondansetron 4 Mg/2 Ml Vial) 4 mg IVP Q8HR PRN PRN Reason: Nausea And Vomiting Stop: 07/15/22 09:19 Oxycodone/Acetaminophen (Oxycodone-Apap 7.5-325mg 1 Each Tab) 1 each PO Q4HR PRN PRN Reason: Moderate Pain Oxycodone/Acetaminophen (Oxycodone-Apap 7.5-325mg 1 Each Tab) 2 each PO Q6HR PRN PRN Reason: Severe Pain Last Admin: 06/16/22 13:07 Dose: 2 each Pantoprazole Sodium (Pantoprazole 40 Mg Tablet) 40 mg PO AC-BRKFST [facility] Last Admin: 06/16/22 08:53 Dose: 40 mg Potassium Chloride (Potassium Chloride Er 20 Meq Tab.Er) 20 meq PO BID [facility] Last Admin: 06/16/22 08:53 Dose: 20 meq Ropinirole HCl (Ropinirole Hcl 1 Mg Tab) 2 mg PO HS [facility] Last Admin: 06/15/22 21:11 Dose: 2 mg Senna/Docusate Sodium (Sennosides-Docusate Sodium 1 Each Tab) 2 each PO HS [facility] Stop: 07/15/22 21:01 Last Admin: 06/15/22 21:10 Dose: 2 each Sodium Biphosphate/Sodium Phosphate (Na Phos,M-B/Na Phos,Di-Ba 133 Ml Enema) 133 ml RECTAL DAILY PRN PRN Reason: Constipation Stop: 07/15/22 09:19 Tamsulosin HCl (Tamsulosin 0.4 Mg Cap.Er.24h) 0.4 mg PO DAILY [facility] Last Admin: 06/16/22 08:53 Dose: 0.4 mg Temazepam (Temazepam 15 Mg Cap) 15 mg PO HS PRN PRN Reason: Insomnia Stop: 07/15/22 09:19 Past medical history to include: CAD with a bypass, diabetes, GERD, hypertension, hyperlipidemia, hypothyroid, AICD, coronary bypass Social history: Lives at a custodial. Smoked for about 30 years stopped about 8 years ago. No alcohol. Physical examination: VITAL SIGNS: 98.4, 61, 18, 11 7 x 56, 94% room air GENERAL: Laying in bed, comfortable EYES: Pupils equal. Conjunctiva normal. HEENT: External appearance of nose and ears normal, oral cavity grossly normal. NECK: JVD not raised; masses not palpable. HEART: First and second heart sounds are normal; no edema. LUNGS: Respiratory rate normal; clear to auscultation. ABDOMEN: Soft, nontender, liver spleen not palpable, no masses palpable. PSYCH: Alert and oriented x3; mood and affect normal. MUSCULOSKELETAL:No Clubbing/cyanosis;muscles-grossly intact, evidence of OA. Dressing over the right knee INVESTIGATIONS, reviewed in the clinical context: June 16: WBC 8.18 globin 10.6 platelets 142 BUN 23 creatinine 1.4 to Potassium 3.5 BUN 19 creatinine 1.4 Assessment and plan: -Right total knee arthroplasty. Pain control. DVT prophylaxis. -CAD with a prior history of bypass Aspirin, Lopressor, -Restless leg syndrome Requip -Parkinson's disease Sinemet 2500 one tablet 4 times a day -Hyperlipidemia Lipitor -Essential hypertension Zestril, Lopressor -GERD Protonix -BPH Flomax -Acute postprocedure anemia, expected from surgery Ferrous sulfate Discussed with patient. Ferrous sulfate. Other medications to continue. Activity per orthopedics. Thank you Dr. Horn
[2022-06-16 17:10] LABS: Glucose,Whole Blood 355 mg/dL (70-110)
[2022-06-16 20:14] LABS: Glucose,Whole Blood 227 mg/dL (70-110)
[2022-06-16] MEDS: SENNOSIDES-DOCUSATE SODIUM 1 EACH TAB PO SCH (21:02)
[2022-06-16] MEDS: ATORVASTATIN 20 MG TAB PO SCH (21:02)
[2022-06-16] MEDS: MONTELUKAST 10 MG TAB PO SCH (21:02)
[2022-06-17 08:01] LABS: Glucose,Whole Blood 171 mg/dL (70-110)
[2022-06-17] MEDS: INSPUCOR MISCELLANE SCH (08:16)
[2022-06-17] MEDS: MAGNESIUM OXIDE 400 MG TAB PO SCH (08:17)
[2022-06-17] MEDS: GABAPENTIN 300 MG CAP PO SCH (08:17)
[2022-06-17] MEDS: TAMSULOSIN 0.4 MG CAP.ER.24H PO SCH (08:17)
[2022-06-17] MEDS: CHOLECALCIFEROL 125 MCG (5000 IU) TABLET PO SCH (08:17)
[2022-06-17] MEDS: FAMOTIDINE 20 MG TAB PO SCH (08:17)
[2022-06-17] MEDS: METOPROLOL TARTRATE 25 MG TAB PO SCH (08:17)
[2022-06-17] MEDS: CLOPIDOGREL 75 MG TAB PO SCH (08:18)
[2022-06-17] MEDS: ASPIRIN 81 MG PO SCH (08:18)
[2022-06-17] MEDS: ISOSORBIDE MONONITRATE ER 30 MG TAB.ER.24H PO SCH (08:18)
[2022-06-17] MEDS: CARBIDOPA-LEVODOPA 25-100 MG 1 EACH TAB PO SCH (08:18)
[2022-06-17] MEDS: POTASSIUM CHLORIDE ER 20 MEQ TAB.ER PO SCH (08:18)
[2022-06-17] MEDS: PANTOPRAZOLE 40 MG TABLET PO SCH (08:18)
[2022-06-17] MEDS: CYANOCOBALAMIN 500 MCG TAB PO SCH (08:18)
[2022-06-17] MEDS: oxyCODONE-APAP 7.5-325MG 1 EACH TAB PO PRN (08:19)
[2022-06-17] MEDS: FLUDROCORTISONE 0.1 MG TAB PO SCH (08:23)
[2022-06-17 08:25] VITALS: BP 149/81; PULSE 85; RESP 16; TEMP 97.8
--- NOTE | 2022-06-17 10:36 | P.DS ---
Providers Date of admission: 06/15/2022 Expected date of discharge: 06/17/22 Attending physician: Tayo Horn Consults: 06/15/22 09:18 Consult Physician Routine Consulting Provider: Navarro Lewis Consult Reason/Comments: post op medical management Do you want consulting provider notified?: Yes Primary care physician: Michele Merida - Discharge Diagnosis(es) (1) Parkinsons disease Current Visit: Yes Status: Acute (2) CAD (coronary artery disease) Current Visit: Yes Status: Acute (3) Essential hypertension Current Visit: Yes Status: Acute (4) Hyperlipidemia Current Visit: Yes Status: Acute (5) Postoperative anemia Current Visit: Yes Status: Acute (6) Osteoarthritis of right knee Current Visit: Yes Status: Acute Priority: Medium (7) Status post total right knee replacement Current Visit: Yes Status: Acute Hospital Course: This is a pleasant 62-year-old male who presented with right knee osteoarthrosis who failed outpatient conservative therapy. He was admitted for a right total knee arthroplasty. The patient tolerated the procedure well and did well postoperatively. He did have some difficulty of pain control initially with states his pain has been better controlled after change in narcotic medication. He does feel his symptoms have significantly improved since yesterday he is ready for discharge home. Condition on day of discharge stable. Patient will be discharged home. Patient was cleared preoperatively for surgery by Dr. Merida. Patient currently denies any nausea, vomiting, fever, or chills. He is afebrile. Patient is eating and voiding freely without difficulty. He has not had a bowel movement since his admission but he denies any abdominal pain. His abdomen is soft nontender. He is passing gas. Dressing over the right knee has been removed. Surgical incision site is clean, dry, and intact with Exofin glue intact. May weight-bear as tolerated on the right lower extremity. He may shower if no bleeding or draining from the surgical site after 72 hours. He is encouraged to keep the surgical site over the right knee clean, dry, and intact. Encourage elevation and ice over the right knee for comfort support as needed. On-Q pain pump to be managed by anesthesia. MAPS was previously reviewed. An "Opiod Start Talking" Form has been signed and placed in the patient's chart. A prescription was previously written for hydrocodone 10 mg/325 mg 1 every 4 hours as needed for pain, dispense #42 and sent to the [facility] pharmacy located within the [facility]. Patient was having difficulty with pain control with this medication. He has had better control his pain with Percocet. A new prescription is sent to the pharmacy for Percocet 7.5 mg/325 mg, 1 every 6 hours as needed for pain, dispensed #28. We will cancel the previously prescribed prescription for hydrocodone 10 mg/325 mg. Patient should also discontinue Ultram as previously prescribed all taking hydrocodone 10 mg/325 mg. He is also given prescriptions for Colace 100 mg 1 tab twice a day as needed for constipation, dispensed #60, and there a multivitamin. He may continue his other previous he prescribed home medications. Patient's other medical diagnoses include CAD, Parkinson's disease, essential hypertension, hyperlipidemia, and acute was procedural anemia. Patient has been seen and examined by medicine has cleared the patient for discharge home today. Physical Exam on day of discharge: Status post surgical day number 2 Patient is awake, alert, and oriented 3 Vital signs stable Good chest excursion with deep inspiration and expiration Abdomen soft nontender No signs or symptoms of DVT; no calf pain Surgical site over the right knee clean, dry, and intact; no erythema, purulence, or signs of infection No drainage from the surgical site of the right knee Some mild swelling and bruising around the surgical site at the right knee Patient has full foot and ankle motion without difficulty bilateral lower extremities Dorsiflexion, plantar flexion, and extensor hallucis longus positive sustained bilaterally Neurovascular status left lower extremity intact Procedures: Right total knee arthroplasty Patient Condition at Discharge: Stable Plan - Discharge Summary Discharge Rx Participant: Yes New Discharge Prescriptions: New Docusate [Colace] 100 mg PO BID #60 capsule Multivitamins, Thera [Multivitamin (formulary)] 1 each PO DAILY@1200 tab oxyCODONE HCL/ACETAMINOPHEN [Percocet 7.5-325 mg] 1 tab PO Q6HR PRN #28 tab PRN Reason: Pain Continue Atorvastatin [Lipitor] 20 mg PO HS Fludrocortisone [Florinef] 0.05 mg PO BID Tamsulosin [Flomax] 0.4 mg PO DAILY Metoprolol Tartrate [Lopressor] 25 mg PO BID Gabapentin 300 mg PO TID Potassium Chloride [Potassium Chloride ER] 20 meq PO BID Cyanocobalamin (Vitamin B-12) [Vitamin B-12] 1,000 mcg PO DAILY Cholecalciferol (Vitamin D3) [Vitamin D3 (5000 Iu)] 125 mcg PO DAILY Clopidogrel Bisulfate [Plavix] 75 mg PO DAILY rOPINIRole HCL [Requip] 2 mg PO HS Fluticasone Nasal [place] [Flonase Nasal [place]] 1 spray EA NOSTRIL DAILY lisinopriL [Zestril] 2.5 mg PO QAM Montelukast [Singulair] 10 mg PO HS Insulin Aspart (For Pump) [NovoLOG (For Pump)] 0.01 unit SQ-PUMP CONTINUOUS Furosemide [Lasix] 20 mg PO QAM Pantoprazole [Protonix] 40 mg PO QAM Isosorbide Mononitrate [Isosorbide Mononitrate ER] 30 mg PO QAM Magnesium Oxide 800 mg PO BID Aspirin [Adult Low Dose Aspirin EC] 81 mg PO QAM Famotidine 40 mg PO QAM Carbidopa-Levodopa 25-100 mg [Sinemet 25-100 mg] 1 each PO QID Changed Ferrous Sulfate [Iron (65 MG Elemental)] 325 mg PO BID #1 tab Discontinued traMADol HCL [Ultram] 50 mg PO BID PRN PRN Reason: Pain Discharge Medication List Aspirin [Adult Low Dose Aspirin EC] 81 mg PO QAM 12/23/20 [History] Atorvastatin [Lipitor] 20 mg PO HS 12/23/20 [History] Carbidopa-Levodopa 25-100 mg [Sinemet 25-100 mg] 1 each PO QID 12/23/20 [History] Cholecalciferol (Vitamin D3) [Vitamin D3 (5000 Iu)] 125 mcg PO DAILY 12/23/20 [History] Clopidogrel Bisulfate [Plavix] 75 mg PO DAILY 12/23/20 [History] Cyanocobalamin (Vitamin B-12) [Vitamin B-12] 1,000 mcg PO DAILY 12/23/20 [History] Famotidine 40 mg PO QAM 12/23/20 [History] Fludrocortisone [Florinef] 0.05 mg PO BID 12/23/20 [History] Fluticasone Nasal [place] [Flonase Nasal [place]] 1 spray EA NOSTRIL DAILY 12/23/20 [History] Furosemide [Lasix] 20 mg PO QAM 12/23/20 [History] Gabapentin 300 mg PO TID 12/23/20 [History] Insulin Aspart (For Pump) [NovoLOG (For Pump)] 0.01 unit SQ-PUMP CONTINUOUS 12/23/20 [History] Isosorbide Mononitrate [Isosorbide Mononitrate ER] 30 mg PO QAM 12/23/20 [History] Magnesium Oxide 800 mg PO BID 12/23/20 [History] Metoprolol Tartrate [Lopressor] 25 mg PO BID 12/23/20 [History] Montelukast [Singulair] 10 mg PO HS 12/23/20 [History] Pantoprazole [Protonix] 40 mg PO QAM 12/23/20 [History] Potassium Chloride [Potassium Chloride ER] 20 meq PO BID 12/23/20 [History] Tamsulosin [Flomax] 0.4 mg PO DAILY 12/23/20 [History] lisinopriL [Zestril] 2.5 mg PO QAM 12/23/20 [History] rOPINIRole HCL [Requip] 2 mg PO HS 12/23/20 [History] Docusate [Colace] 100 mg PO BID #60 capsule 06/16/22 [Rx] Ferrous Sulfate [Iron (65 MG Elemental)] 325 mg PO BID #1 tab 06/16/22 [Rx] Multivitamins, Thera [Multivitamin (formulary)] 1 each PO DAILY@1200 tab 06/16/22 [Rx] oxyCODONE HCL/ACETAMINOPHEN [Percocet 7.5-325 mg] 1 tab PO Q6HR PRN #28 tab 06/17/22 [Rx] Follow up Appointment(s)/Referral(s): Michele Merida DO [Primary Care Provider] - 1 Week [facility] [NON-STAFF] - 1-2 Days ([facility] will call you to schedule your in home physical therapy visits. ) Juan Powell DO [STAFF PHYSICIAN] - 1 Week (order tracer ) Tayo Horn MD [STAFF PHYSICIAN] - 10 Days Activity/Diet/Wound Care/Special Instructions: 1. Weight-bear as tolerated on the right lower extremity; patient may utilize a walker or other aid to aid in ambulation as needed 2. May shower if no bleeding or draining from the surgical site after 72 hours 3. Encouraged to keep the surgical site over the right knee clean, dry, and intact 4. Encourage elevation and ice over the right knee for comfort support as needed 5. Take medications as prescribed 6. Patient will follow up with Dr. Tayo Horn at [facility] in 10 days for further evaluation Discharge Disposition: HOME SELF-CARE
--- NOTE | 2022-06-17 16:07 | P.CONS ---
History of Present Illness - History of Present Illness This is a pleasant 67 years old male with past medical history of Coronary Ar xochitl Disease (CAD), Diabetes Mellitus, GERD/Reflux, Hyperlipidemia, Hypertension, hypothyroidism, status post AICD, Coronary Bypass/CABG, Heart Catheterization, Pacemaker Patient with advanced Osteoarthritis status post total right knee replacement. Patient sitting today and examined at bedside. Patient fully awake and oriented, looks completely comfortable, he got to be discharged home today. He denies any specific symptoms. His pain at the right knee side is been controlled. Patient denies any chest pain or dyspnea. No abdominal pain or vomiting or diarrhea. Patient tolerates diet well. Patient is passing gas and declined stool softeners when offered to him Neuro urinary urgency or dysuria. No headache or dizziness. No weakness or numbness. Patient is hemodynamically stable. His most recent WBC is 8.8K, hemoglobin 10.6. Platelet count is normal. Electrolytes normal. Creatinine at baseline of 1.4. Compared to creatinine yesterday 1.4. 2 more creatinine reasons from 2020 and 2016 at 1.3. Glucose controlled. Patient says that he has all his prescription at home. He declines any more prescription. Pain medication per primary team. Discussed with the patient has chronic kidney disease and the recommendation to restrict pain medication and also discussed about side effects, goal for pain, and the need for follow-up, and he verbalized understanding and acceptance Review of Systems Review of systems CONSTITUTIONAL: No fever, no malaise, no fatigue. HEENT: No recent visual problems or hearing problems. Denied any sore throat. CARDIOVASCULAR: No orthopnea, PND, no palpitations, no syncope. PULMONARY: No shortness of breath, no cough, no hemoptysis. GASTROINTESTINAL: No diarrhea, no nausea, no vomiting, no abdominal pain. Normoactive bowel sounds. NEUROLOGICAL: No headaches, no weakness, no numbness. HEMATOLOGICAL: Denies any bleeding or petechiae. GENITOURINARY: Denies any burning micturition, frequency, or urgency. -MUSCULOSKELETAL/RHEUMATOLOGICAL: Denies any joint pain, swelling, or any muscle pain. Except above ENDOCRINE: Denies any polyuria or polydipsia. ROS unobtainable: due to endotracheal tube Past Medical History Past Medical History: Coronary Artery Disease (CAD), Diabetes Mellitus, GERD/Reflux, Hyperlipidemia, Hypertension, Myocardial Infarction (ID), Thyroid Disorder Last Myocardial Infarction Date:: 04/2017 History of Any Multi-Drug Resistant Organisms: None Reported Past Surgical History: AICD, Coronary Bypass/CABG, Heart Catheterization, Edu mendoza Additional Past Surgical History / Comment(s): REPAIR OF DIAPHRAGM HOLE. ([facility] HIATAL HERNIA REPAIRED. Catarac surgery 2017 Past Anesthesia/Blood Transfusion Reactions: No Reported Reaction Type of Cardiac Device: AICD Device Placement Date:: 08/26/17 Past Psychological History: No Psychological Hx Reported Smoking Status: Former smoker Past Alcohol Use History: None Reported Past Drug Use History: None Reported Additional Drug Use History / Comment(s): patient states he smoked for 30 years and "started in his 20's. Stopped about 8 years ago" - Past Family History Mother Family Medical History: Cancer Additional Family Medical History / Comment(s): BREAST Father Family Medical History: Cancer Brother(s) Family Medical History: Cancer Additional Family Medical History / Comment(s): ESOPHAGEAL CANCER Medications and Allergies Home Medications Medication Instructions Recorded Confirmed Type Aspirin [Adult Low Dose Aspirin EC] 81 mg PO QAM 12/23/20 06/12/22 History Atorvastatin [Lipitor] 20 mg PO HS 12/23/20 06/12/22 History Carbidopa-Levodopa 25-100 mg 1 each PO QID 12/23/20 06/12/22 History [Sinemet 25-100 mg] Cholecalciferol (Vitamin D3) 125 mcg PO DAILY 12/23/20 06/12/22 History [Vitamin D3 (5000 Iu)] Clopidogrel Bisulfate [Plavix] 75 mg PO DAILY 12/23/20 06/12/22 History Cyanocobalamin (Vitamin B-12) 1,000 mcg PO DAILY 12/23/20 06/12/22 History [Vitamin B-12] Famotidine 40 mg PO QAM 12/23/20 06/12/22 History Fludrocortisone [Florinef] 0.05 mg PO BID 12/23/20 06/12/22 History Fluticasone Nasal [place] [Flonase 1 spray EA NOSTRIL DAILY 12/23/20 06/12/22 History Nasal [place]] Furosemide [Lasix] 20 mg PO QAM 12/23/20 06/12/22 History Gabapentin 300 mg PO TID 12/23/20 06/12/22 History Insulin Aspart (For Pump) [NovoLOG 0.01 unit SQ-PUMP CONTINUOUS 12/23/20 06/12/22 History (For Pump)] Isosorbide Mononitrate [Isosorbide 30 mg PO QAM 12/23/20 06/12/22 History Mononitrate ER] Magnesium Oxide 800 mg PO BID 12/23/20 06/12/22 History Metoprolol Tartrate [Lopressor] 25 mg PO BID 12/23/20 06/12/22 History Montelukast [Singulair] 10 mg PO HS 12/23/20 06/12/22 History Pantoprazole [Protonix] 40 mg PO QAM 12/23/20 06/12/22 History Potassium Chloride [Potassium 20 meq PO BID 12/23/20 06/12/22 History Chloride ER] Tamsulosin [Flomax] 0.4 mg PO DAILY 12/23/20 06/12/22 History lisinopriL [Zestril] 2.5 mg PO QAM 12/23/20 06/12/22 History rOPINIRole HCL [Requip] 2 mg PO HS 12/23/20 06/12/22 History Docusate [Colace] 100 mg PO BID #60 capsule 06/16/22 Rx Ferrous Sulfate [Iron (65 MG 325 mg PO BID #1 tab 06/16/22 Rx Elemental)] Multivitamins, Thera [Multivitamin 1 each PO DAILY@1200 tab 06/16/22 Rx (formulary)] oxyCODONE HCL/ACETAMINOPHEN 1 tab PO Q6HR PRN #28 tab 06/17/22 Rx [Percocet 7.5-325 mg] Allergies Allergy/AdvReac Type Severity Reaction Status Date / Time No Known Allergies Allergy Verified 06/12/22 11:37 Physical Exam Vitals: Vital Signs Temp Pulse Resp BP Pulse Ox 06/17/22 08:00 97.8 F 85 16 149/81 96 06/17/22 01:08 99.0 F 80 17 138/69 92 L 06/16/22 20:00 98.6 F 83 20 122/56 95 06/16/22 14:00 99.2 F 73 17 119/49 94 L Intake and Output 06/16/22 06/17/22 06/17/22 22:59 06:59 14:59 Intake Total 300 Balance 300 Intake: Oral 300 Other: # Voids 1 2 # Bowel Movements 1 GENERAL: The patient is alert and oriented x3, not in any acute distress. Well developed, well nourished. HEENT: Pupils are round and equally reacting to light. EOMI. No scleral icterus. No conjunctival pallor. Normocephalic, atraumatic. No pharyngeal erythema. No thyromegaly. CARDIOVASCULAR: S1 and S2 present. No murmurs, rubs, or gallops. PULMONARY: Chest is clear to auscultation, no wheezing or crackles. ABDOMEN: Soft, nontender, nondistended, normoactive bowel sounds. No palpable organomegaly. MUSCULOSKELETAL: No joint swelling or deformity. -EXTREMITIES: No cyanosis, clubbing, or pedal edema. Right knee surgery scar is closed, no swelling or surrounding redness or discharge. NEUROLOGICAL: Gross neurological examination did not reveal any focal deficits. SKIN: No rashes. no petechiae. Results CBC & Chem 7: 06/16/22 06:34 06/16/22 06:34 Labs: Abnormal Lab Results - Last 24 Hours (Table) 06/16/22 06/16/22 06/17/22 Range/Units 17:09 20:12 08:00 POC Glucose (mg/dL) 355 H 227 H 171 H (70-110) mg/dL Assessment and Plan Assessment: Osteoarthritis status post total right knee arthroplasty: History of coronary Artery Disease , status post AICD, Coronary Bypass/CABG, Heart Catheterization, Pacemaker Diabetes Mellitus GERD/Reflux Hyperlipidemia Hypertension, Hypothyroidism History of Parkinson disease Plan: This is a pleasant 67 years old male status post total knee arthroplasty laps looks stable Patient looks controlled No new symptoms Patient is clinically doing well and he is asymptomatic and eager to go home We discussed with patient pain management and risk and benefits and alternatives and he verbalized understanding and acceptance We recommend to restrict pain medication Discussed with primary team recommendation Pain management and DVT prophylaxis as per primary team We recommend close outpatient follow-up with primary care doctor Dr. Michele Nguyen as well as orthopedics teacher Dr. Powell in one week and patient is instructed with the same and he verbalized understanding and acceptance. Follow-up with surgery as per primary team Patient is medically stable for discharge
== END 2022-06-17 11:32 | disposition home or self-care (01) ==
LOC: OR 07:39 → 4SSUR 11:39 → OR 06-17 11:32
PROVIDERS: ATTEND Orthopaedic Surgery Sports Medicine
DX: M17.11 Unilateral primary osteoarthritis, right knee (principal); G89.18 Other acute postprocedural pain
CPT/HCPCS: 97162; 64999; 64448; 76942; 80048 ×2; 85025; 88300; 73560; 27447; C1776; C1713; J2250; J1100; J0690 ×3; J2405; J1170 ×2; J2795

== ENCOUNTER 2022-11-30 05:36 | Day surgery (SDC) | payer MEDICARE ==
[2022-11-24 11:11] VITALS: BMI 22.5
[~2022-11-30 05:36] MED LIST changes: -DEXAMETHASONE SOD PHOSPHATE 4 MG/ML 1 ML VIAL IV ONE; -ONDANSETRON 4 MG/2 ML VIAL IVP ONE
[2022-11-30] MEDS ORDERED: ONDANSETRON 4 MG/2 ML VIAL IVP ONE (05:42)
[2022-11-30] MEDS ORDERED: DEXAMETHASONE SOD PHOSPHATE 4 MG/ML 1 ML VIAL IV ONE (05:42)
[2022-11-30] MEDS ORDERED: LIDOCAINE 1% (10MG/ML) FOR IV START INTRADERMA PRN (05:42)
[2022-11-30] MEDS: LACTATED RINGERS 1,000 ML IV SCH ×4 (06:26→22:59)
[2022-11-30 06:32] LABS: Glucose,Whole Blood 108 mg/dL (70-110)
[2022-11-30] MEDS ORDERED: fentaNYL (PF) 50 MCG/ML 2 ML AMP IV ONE (06:49)
[2022-11-30] MEDS ORDERED: MIDAZOLAM 2 MG/2 ML VIAL IV ONE (06:49)
[2022-11-30] MEDS ORDERED: SODIUM CHLORIDE 0.9% (PF) 10 ML VIAL ONE (07:10)
[2022-11-30] MEDS ORDERED: TRANEXAMIC ACID IN NACL,ISO-OS 1,000 MG/100 ML BAG ONE (07:10)
[2022-11-30] MEDS ORDERED: PROPOFOL 10 MG/ML 20 ML VIAL IV ONE (07:10)
[2022-11-30] MEDS ORDERED: fentaNYL (PF) 50 MCG/ML 2 ML AMP ONE (07:10)
[2022-11-30] MEDS ORDERED: PHENYLEPHRINE-0.9% NACL SYG 1,000 MCG/10 ML SYRINGE ONE (07:10)
[2022-11-30] MEDS ORDERED: MIDAZOLAM 2 MG/2 ML VIAL ONE (07:10)
[2022-11-30] MEDS ORDERED: ROPIVACAINE 5 MG/ML 30 ML VIAL ONE (07:10)
[2022-11-30] MEDS ORDERED: ceFAZolin 3,000 MG in SODIUM CHLORIDE 0.9% IRRIGATIO 3,000 ML IRRIGATION ONE (08:04)
--- NOTE | 2022-11-30 08:07 | P.ANPRN ---
Procedure Note - Anesthesia - Nerve Block Performed Left Adductor Canal Infusion Time Out Performed: Yes (0649) Date of Procedure: 11/30/22 Procedure Start Time: 06:50 Procedure Stop Time: 06:55 Location of Patient: PreOp Indication: Acute Post-Operative Pain, Requested by Surgeon Specifically requested for management of pain by DrRubén: Tayo Horn Sedation Type: Sedate with meaningful contact maintained Preparation: Sterile Prep, Sterile Dressing Position: Supine Catheter Depth at Skin (cm): 6 Catheter: Indwelling Needle Types: Pajunk Needle Gauge: 18 Ultrasound used to visualize needle placement: Yes Ultrasound used to observe medication spread: Yes Injectate: 0.5% Ropivacaine (see comment for volume) (15cc + 5cc nacl pf) Blood Aspirated: No Pain Paresthesia on Injection Noted: No Resistance on Injection: Normal Image Stored and Saved: Yes Events: Uneventful and Well Tolerated
--- NOTE | 2022-11-30 08:09 | P.ANPRN ---
Procedure Note - Anesthesia - Nerve Block Performed Left iPack Single Time Out Performed: Yes (0649) Date of Procedure: 11/30/22 Procedure Start Time: 06:56 Procedure Stop Time: 07:00 Location of Patient: PreOp Indication: Acute Post-Operative Pain, Requested by Surgeon Specifically requested for management of pain by DrRubén: Tayo Horn Sedation Type: Sedate with meaningful contact maintained Preparation: Sterile Prep Position: Supine Catheter: None Needle Types: [place]ajunk Needle Gauge: 21 Ultrasound used to visualize needle placement: Yes Ultrasound used to observe medication spread: Yes Injectate: 0.5% Ropivacaine (see comment for volume) (15cc +5cc nacl pf) Blood Aspirated: No Pain Paresthesia on Injection Noted: No Resistance on Injection: Normal Image Stored and Saved: Yes Events: Uneventful and Well Tolerated
[2022-11-30] MEDS ORDERED: LACTATED RINGERS 1,000 ML IV ONE (08:32)
[2022-11-30] MEDS ORDERED: HYDROmorphone 0.5 MG/0.5 ML SYRINGE IVP PRN ×3 (09:08)
[2022-11-30] MEDS ORDERED: NA PHOS,M-B/NA PHOS,DI-BA 133 ML ENEMA RECTAL PRN (09:08)
[2022-11-30] MEDS ORDERED: MAGNESIUM HYDROXIDE 2,400 MG/10 ML CUP PO PRN (09:08)
[2022-11-30] MEDS ORDERED: TEMAZEPAM 15 MG CAP PO PRN (09:08)
[2022-11-30] MEDS ORDERED: NALOXONE 0.4 MG/ML 1 ML VIAL IV PRN (09:08)
[2022-11-30] MEDS ORDERED: bisacodyL 10 MG SUPP RECTAL PRN (09:08)
[2022-11-30] MEDS ORDERED: ONDANSETRON 4 MG/2 ML VIAL IVP PRN (09:08)
[2022-11-30] MEDS ORDERED: ACETAMINOPHEN TAB 325 MG TAB PO PRN (09:08)
[2022-11-30] MEDS ORDERED: traMADol 50 MG TAB PO PRN (09:08)
[2022-11-30] MEDS ORDERED: diazePAM 5 MG TAB PO PRN (09:08)
[2022-11-30] MEDS ORDERED: oxyCODONE-APAP 7.5-325MG 1 EACH TAB PO PRN ×2 (09:11)
[2022-11-30 09:53] LABS: Glucose,Whole Blood 125 mg/dL (70-110)
[2022-11-30] MEDS: HYDROmorphone 0.5 MG/0.5 ML SYRINGE IVP PRN ×3 (10:00→13:18)
--- NOTE | 2022-11-30 10:01 | OP ---
OPERATIVE REPORT DATE OF SERVICE : 11/30/2022 MANAGER DESKTOP: Jayme Franco PA-C. PREOPERATIVE DIAGNOSIS: Left knee osteoarthrosis. POSTOPERATIVE DIAGNOSIS: Left knee osteoarthrosis. OPERATION: Left total knee arthroplasty. ANESTHESIA: Spinal sedation. ESTIMATED BLOOD LOSS: 100 mL. TOURNIQUET TIME: 55 minutes at 250 mmHg. COMPLICATIONS: None apparent. DRAINS: None. DISPOSITION: Postanesthesia care unit. INDICATIONS: Juan F is a very pleasant 67-year-old male with longstanding history of left knee pain. History and physical examination are consistent with advanced left knee osteoarthrosis. He has been through significant operative management up to this point. Further treatment options were discussed and he decided to go forward with the left total knee arthroplasty. Risks of procedure were discussed with him in detail. These risks include, but are not limited to risk of infection, nerve damage, bleeding, pain, and a small risk of deep vein thrombosis which could lead to fatal pulmonary embolism. There is also a small risk of loosening of the implant which could require revision operation. The patient understands these risks. All of his questions were answered to his satisfaction. Appropriate informed consent was obtained. NARRATIVE: The patient was identified in the preoperative holding area. Surgical site was marked by both the patient and myself. He was given 2 g of Ancef IV prophylactic purposes. He was then transported to the operative suite. He was placed supine on the operating table. Spinal anesthetic was then administered and dosed per the anesthesia department without apparent complication. An examination under anesthesia was then performed. The patient was 2 to 3 degrees shy of full extension. He had 100 degrees of flexion. Medial collateral ligament, lateral collateral ligament and posterior cruciate ligaments were stable. Tourniquet was then placed high on the left upper thigh well-padded in preparation for surgery. The patient's left lower extremity was then prepped and draped in the usual sterile fashion. Standard surgical pause undertaken to ensure that we were operating the correct site and that appropriate preoperative antibiotics were given. All staff were in agreement and we proceeded. The outlines of the patella marked with a surgical pen. A planned 12 cm vertical incision centered over the patella was marked with a surgical pen. Leg was then exsanguinated with an Esmarch dressing. The knee was then flexed and tourniquet inflated to 250 mmHg. Total tourniquet time for the procedure was 55 minutes. An incision was then made with a 10 blade scalpel. Dissection was carried down sharply overlying fascia. Great care was taken to minimize the skin flaps. The knee was then exposed using a standard medial parapatellar approach. A small cuff of quadriceps tendon was then left for suturing. He was in a bit of varus preoperatively. A standard medial release was then made. Superficial medial collateral ligament was dissected off the bone around to the posterior aspect of the proximal tibia. The medial meniscus was then excised as well. The lateral meniscus was also released anteriorly. The leg was then externally rotated. The patella was everted. The knee was flexed. Retractors were then placed to protect the collateral ligaments. I then proceeded to remove the infrapatellar fat pad. This was excised sharply tangentially with fibers of the patellar tendon. I then proceeded to remove the peripheral osteophytes. This was done with a rongeur. I then proceeded with the distal femoral resection. He did have near full extension. A planned 9 mm resection was then done. Femoral canal was entered in the midline of the femur approximately 10 mm anterior to the origin of the posterior cruciate ligament. The jenny was then advanced down to the center of the femur and placed intramedullary. Based on the preoperative radiographs, the angle between the anatomic and mechanical axis of the femur was approximately 4 to 5 degrees and the valgus angle distal cutting guide was then set at 4 degrees for the left knee. The distal femoral cutting guide was then advanced over the intramedullary jenny. This was seated firmly against the femur. I then as mentioned planned to take 9 mm off the distal femur. The cutting block was then secured onto the femur with pins. The jig was then removed. Distal femoral cut was made through the slot of the block. The pins were removed. The distal femoral cutting block was removed. The accuracy of the distal femoral cuts was checked with 2 flat bars. I then proceeded with femoral sizing. Posterior referencing sizing guide was held firmly against the resected surface of the femur. The posterior condyles were resting on the posterior plane of the guide. The sizing stylus was then placed on the anterior femur. The size was measured as a size 7. I then assessed for femoral rotation. Plan was for 3 degrees of external rotation. Three degrees of external rotation was placed onto the jig. These holes were then marked. I then confirmed the rotation by 3 separate methods. This was done using epicondylar axis as well as Whitesides line and posterior referencing. It was deemed that the external rotation was proper. I then went forward and placed the femoral cutting block. This was placed over the previously placed pin holes. The Johnny wing was then placed on the anterior slots to ensure that we would not notch the anterior femur with the anterior femoral cut. I then proceeded with the anterior femoral cut. This was flush with the anterior cortex of the femur. Posterior cuts were then made followed by the anterior chamfer cut and then the posterior chamfer cut. The cutting block was then removed. Throughout the resection, the collateral ligaments were protected with retractors. I then placed a trial size 7 femur. It fit very nice medial-lateral and fit flush with the distal end of the femur. The drill holes were then made. I then proceeded with the tibial cut. I planned for cruciate-retaining knee. Guide was placed and set for varus and valgus and for slope. The height was set for approximately 2 mm resection from the medial tibial plateau which was the lower side. I was happy with the alignment and the amount of resection. The cutting block was then pinned to the proximal tibia. The alignment jenny was removed. Proximal tibia was resected with a reciprocating saw. Again, this was done with retractors protecting the collateral ligaments as well as the posterior cruciate ligament. I then proceeded to evaluate the flexion and extension gaps. A 10 mm block was then placed. The flexion and extension gaps were equal. I then proceeded with resection of the posterior osteophytes. He had very minimal posterior osteophytes. This was done using a curved osteotome. This resected the posterior osteophytes and posterior capsule stripping was done off the posterior aspect of the femur at this time. The osteophytes were then removed. I then proceeded with resection of the patella. The thickness of patella was measured using the caliper. The thickness was 22 mm. The thickness of the anticipated patellar dome was taken into account. Resection was then performed and confirmed to be equal in 4 quadrants using a caliper. Approximately 14 mm of bone remained after resection. A 32 x 8.5 mm standard patellar trial was then placed. The holes were drilled and the trial was then placed. I then proceeded with sizing tibial plate. A size E tibial plate fit very nicely. I then placed the trial femur, the tibial tray and the patellar button. A 10 mm trial tibial insert was also placed. The components fit very nicely. He had full extension and flexion. The extension and flexion gaps were equal and stable to varus and valgus stress. The patella tracked appropriately. The tibial tray rotation was marked with a Bovie. It was externally rotated properly. I then proceeded with tibial preparation. I first drilled the femoral holes and removed the femoral component. The tibial tray was then set for proper external rotation as well as medial and lateral placement onto the tibia. It was then pinned into place. I then proceeded with punching the keel. I then decided to proceed with cementing of all our components. The knee was thoroughly irrigated with sterile saline solution via pulsed lavage. The lateral genicular artery was identified and cauterized. All blood was removed from the bone of the tibia, femur, and patella with pulsed lavage. I then proceeded with cementing. Two packs of antibiotic bone cement were prepared on the back table by the surgical asst. I then proceeded with cementing the tibia first. The cement was impacted into the keel as well as deeply seated into the bone. A second coat of cement was then placed. The tibia was then impacted into place. Excess cement was removed with [place]'s and Joker's. I then proceeded with cementing of the femoral component. The femoral component was also cemented using standard technique. Excess cement was removed. A 10 mm trial insert was then placed into the knee. It was brought into full extension with a constant axial load placed until the cement had hardened. The patellar component was then cemented. This was held firmly with a compressive device until the cement had dried. When the cement had dried, the knee was taken out of extension. All excess cement was removed from around the prosthesis. I then trialed the knee with a 10 mm insert. The flexion and extension gaps were appropriate. The knee was stable. It came into full extension. I decided to go forward with a 10 mm medial congruent cross-linked cruciate- retaining tibial insert. Polyethylene was then placed onto the tibial tray and locked into place. The knee was then reduced. The knee was again further irrigated with sterile saline solution with antibiotic added. The tourniquet was then deflated. Total tourniquet time for the procedure was 55 minutes at 250 mmHg. Final components were Ej Persona size 7 cruciate-retaining femoral component, size E tibial tray, a 10 mm medial congruent cruciate-retaining polyethylene insert and a 32 x 8.5 mm patella. I then proceeded with closure. Again, the knee was thoroughly irrigated. The quadriceps tendon and the medial retinaculum were reapproximated with #2 Ethibond suture. The extensor mechanism was then closed with a running #2 Quill suture. Subcutaneous tissues were closed with 2-00 Vicryl interrupted suture. The skin was closed with a running 3-0 Quill suture. Dermabond was applied to the incision. Sterile compressive dressings were then applied. All sponge and needle counts were deemed correct prior to closure. The patient tolerated the procedure without apparent complication. He was transferred to the recovery room in stable condition. MMODL / IJN: [id number] /
[2022-11-30] MEDS ORDERED: ROPIVACAINE 1,100 MG, SODIUM CHLORIDE 0.9% 500 ML 330 ML, EMPTY PAIN BALL 1 EACH MISCELLANE PRN ×2 (10:14)
--- NOTE | 2022-11-30 10:27 | XR ---
EXAMINATION TYPE: XR knee limited LT DATE OF EXAM: 11/30/2022 10:00 AM INDICATION: Patient age:Male; 67 years old; Reason for study: Evaluation for Postop abnormality and alignment; PHH. COMPARISON: None TECHNIQUE: The Left knee(s) was examined in frontal and crosstable lateral projections. FINDINGS: Post surgical changes from total left knee arthroplasty with distal femoral and proximal ti bial components. Hardware appears intact with appropriate alignment. There is associated soft tissue gas and edema identified. No acute fracture or dislocation. Additional surgical clips demonstrated wi thin the distal medial right thigh soft tissues. IMPRESSION: Postsurgical changes from total left knee arthroplasty. Hardware appears intact with appropriate alig nment.
[2022-11-30] MEDS ORDERED: Insulin Aspart (For Pump) 100 UNIT/ML VIAL SQ-PUMP SCH (15:00)
[2022-11-30] MEDS: CARBIDOPA-LEVODOPA 25-100 MG 1 EACH TAB PO SCH ×3 (15:33→21:21)
[2022-11-30] MEDS: GABAPENTIN 300 MG CAP PO SCH ×2 (15:33→21:21)
[2022-11-30] MEDS ORDERED: INSULIN PUMP BASAL RATES 1 EACH MISC MISCELLANE PRN (16:30)
[2022-11-30 17:00] LABS: Glucose,Whole Blood 417 mg/dL (70-110)
[2022-11-30] MEDS: INSULIN PUMP MEAL BOLUS 1 UNIT MISC MISCELLANE SCH ×2 (18:05→21:22)
[2022-11-30 19:10] LABS: Glucose,Whole Blood 390 mg/dL (70-110)
--- NOTE | 2022-11-30 19:41 | P.CONS ---
History of Present Illness - Reason for Consult Consult date: 11/30/22 Medical management Requesting physician: Tayo Horn - Chief Complaint Knee surgery - History of Present Illness This is a pleasant 67-year-old patient, follows with Dr. Merida. Chronic stable medical conditions include CAD with a prior history of bypass before by Dr. Gold, diabetes-insulin pump, GERD, hypertension, hyperlipidemia, hypothyroid. CK D, Parkinson's Has undergone left total knee arthroplasty. Postprocedure pain is controlled. No nausea. No chest pain or short of breath. Laying in bed. Review of systems: GEN.: None EYES: None HEENT: None NECK: None RESPIRATORY: None CARDIOVASCULAR: None GASTROINTESTINAL: None GENITOURINARY: None MUSCULOSKELETAL: Joint pains LYMPHATICS: None HEMATOLOGICAL: None PSYCHIATRY: None NEUROLOGICAL: None Past medical history to include: CAD with a bypass, diabetes on insulin pump since 2005, GERD, hypertension, hyperlipidemia, hypothyroid, AICD, coronary bypass, CK D, Parkinson's Social history: [facility] at a jail. Smoked for about 30 years stopped about 8 years ago. No alcohol. Physical examination: VITAL SIGNS: 98.2, 65, 17, 104/59, 98% room air GENERAL: BMI 22.6, reclining in bed awake comfortable EYES: Pupils equal. Conjunctiva normal. HEENT: External appearance of nose and ears normal, oral cavity grossly normal. NECK: JVD not raised; masses not palpable. HEART: First and second heart sounds are normal; no edema. LUNGS: Respiratory rate normal; clear to auscultation. ABDOMEN: Soft, nontender, liver spleen not palpable, no masses palpable. PSYCH: Alert and oriented x3; mood and affect normal. MUSCULOSKELETAL:No Clubbing/cyanosis;muscles-grossly intact, evidence of OA. Dressing over the left knee NEUROLOGICAL: Cranial nerves grossly intact; no facial asymmetry, power and sensation grossly intact. LYMPHATICS: No lymph nodes palpable in the axilla and neck INVESTIGATIONS, reviewed in the clinical context: 11/15/2022: White count 11.5 hemoglobin 12 platelets 190 potassium 5 BUN 31 and creatinine 1.6 Previous labs: Creatinine 1.2 in June 2022 Assessment and plan: -Left total knee arthroplasty. Pain control. DVT prophylaxis. -CAD with a prior history of bypass Aspirin, Lopressor, -Diabetes mellitus type 2 on insulin pump, since 2005 Patient to continue his home insulin pump at home dose. Patient got a new [employer] pump 2 weeks ago -Restless leg syndrome Requip -Parkinson's disease Sinemet 2500 one tablet 4 times a day -Hyperlipidemia Lipitor -Essential hypertension Zestril, Lopressor -GERD Protonix -BPH Flomax Discussed with patient. He knows how to use his pump. Other medications to continue. Will follow Thank you Dr. Horn Past Medical History Past Medical History: Diabetes Mellitus, GERD/Reflux, Hyperlipidemia, Hypertension, Myocardial Infarction (MS), Osteoarthritis (OA) Additional Past Medical History / Comment(s): PARKINSON'S, NEUROPATHY, Last Myocardial Infarction Date:: 2016 History of Any Multi-Drug Resistant Organisms: None Reported Past Surgical History: AICD, Coronary Bypass/CABG, Hernia Repair, Joint Replacement Additional Past Surgical History / Comment(s): REPAIR OF DIAPHRAGM HOLE. ([facility] HIATAL HERNIA REPAIRED. Cataract surgery 2016, RT TKA 2021 Past Anesthesia/Blood Transfusion Reactions: No Reported Reaction Type of Cardiac Device: AICD Device Placement Date:: 06/2017 Past Psychological History: No Psychological Hx Reported Smoking Status: Former smoker Past Alcohol Use History: None Reported Additional Past Alcohol Use History / Comment(s): QUIT 5-10 YEARS AGO Past Drug Use History: None Reported Additional Drug Use History / Comment(s): patient states he smoked for 30 years and "started in his 20's. Stopped about 8 years ago" - Past Family History Mother Family Medical History: Cancer Additional Family Medical History / Comment(s): BREAST Brother(s) Family Medical History: Cancer Additional Family Medical History / Comment(s): THROAT Father Family Medical History: Cancer Medications and Allergies Home Medications Medication Instructions Recorded Confirmed Type Aspirin [Adult Low Dose Aspirin EC] 81 mg PO QAM 12/23/20 11/30/22 History Atorvastatin [Lipitor] 20 mg PO HS 12/23/20 11/30/22 History Carbidopa-Levodopa 25-100 mg 1 each PO QID 12/23/20 11/30/22 History [Sinemet 25-100 mg] Cholecalciferol (Vitamin D3) 125 mcg PO DAILY 12/23/20 11/30/22 History [Vitamin D3 (5000 Iu)] Clopidogrel Bisulfate [Plavix] 75 mg PO DAILY 12/23/20 11/30/22 History Cyanocobalamin (Vitamin B-12) 1,000 mcg PO DAILY 12/23/20 11/30/22 History [Vitamin B-12] Fludrocortisone [Florinef] 0.05 mg PO BID 12/23/20 11/30/22 History Furosemide [Lasix] 20 mg PO QAM 12/23/20 11/30/22 History Gabapentin 300 mg PO TID 12/23/20 11/30/22 History Insulin Aspart (For Pump) [NovoLOG 0.01 unit SQ-PUMP CONTINUOUS 12/23/20 11/30/22 History (For Pump)] Isosorbide Mononitrate [Isosorbide 30 mg PO QAM 12/23/20 11/30/22 History Mononitrate ER] Magnesium Oxide 800 mg PO BID 12/23/20 11/30/22 History Metoprolol Tartrate [Lopressor] 25 mg PO BID 12/23/20 11/30/22 History Pantoprazole [Protonix] 40 mg PO QAM 12/23/20 11/30/22 History Potassium Chloride [Klor-Con M10] 20 meq PO BID 12/23/20 11/30/22 History Tamsulosin [Flomax] 0.4 mg PO DAILY 12/23/20 11/30/22 History lisinopriL [Zestril] 2.5 mg PO QAM 12/23/20 11/30/22 History rOPINIRole HCL [Requip] 2 mg PO HS 12/23/20 11/30/22 History Docusate [Colace] 100 mg PO BID #60 capsule 06/16/22 11/30/22 Rx Ferrous Sulfate [Iron (65 MG 325 mg PO BID #1 tab 06/16/22 11/30/22 Rx Elemental)] oxyCODONE HCL/ACETAMINOPHEN 1 tab PO Q6HR PRN #28 tab 06/17/22 11/30/22 Rx [Percocet 7.5-325 mg] Multivit-Min/FA/Lycopen/Lutein 1 each PO 11/24/22 History [Centrum Silver Men Tablet] levETIRAcetam [Keppra] 500 mg PO HS 11/24/22 11/30/22 History traMADol HCL 50 mg PO BID PRN 11/24/22 11/30/22 History Allergies Allergy/AdvReac Type Severity Reaction Status Date / Time No Known Allergies Allergy Verified 11/30/22 05:59 Physical Exam Vitals: Vital Signs Temp Pulse Pulse Resp BP Pulse Ox 11/30/22 14:40 98.2 F 65 17 104/59 98 11/30/22 14:02 65 17 116/72 98 11/30/22 13:02 65 16 106/72 99 11/30/22 12:03 64 16 106/61 99 11/30/22 11:32 63 16 109/62 99 11/30/22 11:02 66 16 105/69 99 11/30/22 10:46 65 16 105/57 99 11/30/22 10:31 51 L 16 101/60 99 11/30/22 10:16 60 16 104/59 99 11/30/22 10:00 63 16 108/60 99 11/30/22 09:46 50 L 16 109/65 99 11/30/22 09:33 57 L 16 106/55 99 11/30/22 09:15 57 L 20 106/51 99 11/30/22 09:12 98 F 57 L 20 96/51 95 11/30/22 06:58 63 16 89/57 97 11/30/22 05:58 97.4 F L 66 18 104/67 95 Intake and Output 11/30/22 11/30/22 11/30/22 06:59 14:59 22:59 Intake Total 100 1901 Output Total 100 Balance 100 1801 Intake: IV 100 1901 Output: Estimated Blood Loss 100 Other: Weight 71.6 kg 71.6 kg Results Labs: Abnormal Lab Results - Last 24 Hours (Table) 11/30/22 11/30/22 11/30/22 Range/Units 09:52 16:59 19:09 POC Glucose (mg/dL) 125 H 417 H 390 H (70-110) mg/dL
[2022-11-30] MEDS ORDERED: ATORVASTATIN 20 MG TAB PO SCH (21:00)
[2022-11-30] MEDS ORDERED: SENNOSIDES-DOCUSATE SODIUM 1 EACH TAB PO SCH (21:00)
[2022-11-30] MEDS ORDERED: levETIRAcetam 500 MG TAB PO SCH (21:00)
[2022-11-30] MEDS: METOPROLOL TARTRATE 25 MG TAB PO SCH (21:21)
[2022-11-30] MEDS: DOCUSATE 100 MG CAP PO SCH (21:21)
[2022-11-30] MEDS: FERROUS SULFATE 325 MG TAB PO SCH (21:21)
[2022-11-30] MEDS: oxyCODONE-APAP 7.5-325MG 1 EACH TAB PO PRN (21:21)
[2022-11-30] MEDS: MAGNESIUM OXIDE 400 MG TAB PO SCH (21:21)
[2022-11-30] MEDS: FLUDROCORTISONE 0.1 MG TAB PO SCH (21:23)
[2022-12-01 01:39] LABS: Glucose,Whole Blood 296 mg/dL (70-110)
[2022-12-01] MEDS: oxyCODONE-APAP 7.5-325MG 1 EACH TAB PO PRN (04:55)
[2022-12-01 05:45] LABS: Glucose,Whole Blood 236 mg/dL (70-110)
[2022-12-01] MEDS: LACTATED RINGERS 1,000 ML IV SCH ×2 (05:54→06:17)
[2022-12-01] MEDS: INSULIN PUMP MEAL BOLUS 1 UNIT MISC MISCELLANE SCH (07:30)
[2022-12-01] MEDS ORDERED: PANTOPRAZOLE 40 MG TABLET PO SCH (07:30)
[2022-12-01 08:50] LABS: Basophils # (A) 0.03 X 10*3/uL (0.00-0.10); Basophils % (A) 0.4 %; Eosinophils # (A) 0.09 X 10*3/uL (0.04-0.35); Eosinophils % (A) 1.1 %; HCT 31.2 % (39.6-50.0); HGB 9.9 g/dL (13.0-17.0); Immature Grans, Automated 0.4 %; Lymphocytes # (A) 1.29 X 10*3/uL (0.90-5.00); Lymphocytes % (A) 15.1 %; MCH 34.7 pg (27.0-32.0); MCHC 31.7 g/dL (32.0-37.0); MCV 109.5 fL (80.0-97.0); Mean Platelet Volume 11.5 fL (9.5-12.2); Monocytes # (A) 1.07 X 10*3/uL (0.20-1.00); Monocytes % (A) 12.6 %; NRBC Per 100 WBC 0.2 /100 WBCS (0.0-0.0); Neutrophils # (A) 6.01 X 10*3/uL (1.80-7.70); Neutrophils % (A) 70.4 %; Platelet Count 170 X 10*3/uL (140-440); RBC 2.85 X 10*6/uL (4.40-5.60); RDW 12.7 % (11.5-14.5); WBC 8.52 X 10*3/uL (4.50-10.00)
--- NOTE | 2022-12-01 08:59 | P.PN ---
Progress Note - Text Progress Note Date: 12/01/22 (0946) Anesthesiology Postop day 1 status post total knee arthroplasty with adductor canal catheter. Patient doing well. VAS 8 out of 10. Gross strength intact in lower extremity. Afebrile. Denies alterations in sensorium. Catheter site intact. Heart regular rate Lungs nonlabored Abdomen nondistended Assessment: Postop day 1 status post total knee arthroplasty with adductor canal catheter Plan: 1.All questions answered. Maintain catheter 2 more days with patient removal at home. Instructions to be given at discharge. 2.This note was dictated using [employer] software. Please be advised there is a potential for misspellings or errors in housekeeping attendant.
[2022-12-01] MEDS ORDERED: CHOLECALCIFEROL 125 MCG (5000 IU) TABLET PO SCH (09:00)
[2022-12-01] MEDS ORDERED: CLOPIDOGREL 75 MG TAB PO SCH (09:00)
[2022-12-01] MEDS ORDERED: ASPIRIN 81 MG PO SCH (09:00)
[2022-12-01] MEDS ORDERED: CYANOCOBALAMIN 500 MCG TAB PO SCH (09:00)
[2022-12-01] MEDS ORDERED: TAMSULOSIN 0.4 MG CAP.ER.24H PO SCH (09:00)
[2022-12-01] MEDS ORDERED: ISOSORBIDE MONONITRATE ER 30 MG TAB.ER.24H PO SCH (09:00)
[2022-12-01] MEDS: CARBIDOPA-LEVODOPA 25-100 MG 1 EACH TAB PO SCH ×2 (11:01→13:19)
[2022-12-01] MEDS: DOCUSATE 100 MG CAP PO SCH (11:01)
[2022-12-01] MEDS: FERROUS SULFATE 325 MG TAB PO SCH (11:02)
[2022-12-01] MEDS: FLUDROCORTISONE 0.1 MG TAB PO SCH (11:02)
[2022-12-01] MEDS: GABAPENTIN 300 MG CAP PO SCH (11:03)
[2022-12-01] MEDS: MAGNESIUM OXIDE 400 MG TAB PO SCH (11:03)
[2022-12-01] MEDS: METOPROLOL TARTRATE 25 MG TAB PO SCH (11:03)
[2022-12-01 11:52] LABS: Glucose,Whole Blood 254 mg/dL (70-110)
[2022-12-01] MEDS ORDERED: MULTIVITAMINS, THERA 1 EACH TAB PO SCH (12:00)
--- NOTE | 2022-12-01 12:45 | P.DS ---
Providers Expected date of discharge: 12/01/22 Attending physician: Tayo Horn Consults: 11/30/22 09:08 Consult Physician Routine Consulting Provider: Navarro Lewis Consult Reason/Comments: post op medical management Do you want consulting provider notified?: Yes Primary care physician: Michele Nguyen Bacheldor - Discharge Diagnosis(es) (1) Status post total left knee replacement Patient was admitted to the OR on 11/30/22 to undergo a left total knee arthroplasty. He had failed conservative measures as an outpatient and desired to proceed with elective surgery after given informed consent. He underwent the above procedure which he tolerated well without complication. Postoperative hospital course has remained without complication. On day of discharge he is afebrile, vital signs stable, labs within acceptable ranges, tolerating by mouth meds and diet, voiding without difficulty, positive flatus, denies abdominal pain or calf pain, pain is controlled on oral pain medication and has no new complaints. Wound is benign, neurovascular status is intact, calf is soft and nontender, abdomen soft and nontender. Review of systems is negative for numbness, tingling, fever, chills, chest pain, shortness of breath, nausea, vomiting, dizziness, headaches, slurred speech or other. Current Visit: Yes Status: Acute Priority: Medium Procedures: Left TKA Patient Condition at Discharge: Good Plan - Discharge Summary Discharge Rx Participant: Yes New Discharge Prescriptions: New Docusate [Colace] 100 mg PO BID #60 capsule oxyCODONE-APAP 7.5-325MG [Percocet 7.5-325 mg] 1 tab PO Q4HR PRN #42 tab PRN Reason: Pain Ondansetron [Zofran] 4 mg PO Q8HR PRN #21 tab PRN Reason: Nausea No Action Atorvastatin [Lipitor] 20 mg PO HS Fludrocortisone [Florinef] 0.05 mg PO BID Tamsulosin [Flomax] 0.4 mg PO DAILY Metoprolol Tartrate [Lopressor] 25 mg PO BID Gabapentin 300 mg PO TID Potassium Chloride [Klor-Con M10] 20 meq PO BID Cyanocobalamin (Vitamin B-12) [Vitamin B-12] 1,000 mcg PO DAILY Cholecalciferol (Vitamin D3) [Vitamin D3 (5000 Iu)] 125 mcg PO DAILY Clopidogrel Bisulfate [Plavix] 75 mg PO DAILY rOPINIRole HCL [Requip] 2 mg PO HS lisinopriL [Zestril] 2.5 mg PO QAM Insulin Aspart (For Pump) [NovoLOG (For Pump)] 0.01 unit SQ-PUMP CONTINUOUS Docusate [Colace] 100 mg PO BID #60 capsule Ferrous Sulfate [Iron (65 MG Elemental)] 325 mg PO BID #1 tab Furosemide [Lasix] 20 mg PO QAM Pantoprazole [Protonix] 40 mg PO QAM Isosorbide Mononitrate [Isosorbide Mononitrate ER] 30 mg PO QAM Magnesium Oxide 800 mg PO BID Aspirin [Adult Low Dose Aspirin EC] 81 mg PO QAM Carbidopa-Levodopa 25-100 mg [Sinemet 25-100 mg] 1 each PO QID oxyCODONE HCL/ACETAMINOPHEN [Percocet 7.5-325 mg] 1 tab PO Q6HR PRN #28 tab PRN Reason: Pain levETIRAcetam [Keppra] 500 mg PO HS Multivit-Min/FA/Lycopen/Lutein [Centrum Silver Men Tablet] 1 each PO traMADol HCL 50 mg PO BID PRN PRN Reason: Pain Discharge Medication List Aspirin [Adult Low Dose Aspirin EC] 81 mg PO QAM 12/23/20 [History] Atorvastatin [Lipitor] 20 mg PO HS 12/23/20 [History] Carbidopa-Levodopa 25-100 mg [Sinemet 25-100 mg] 1 each PO QID 12/23/20 [History] Cholecalciferol (Vitamin D3) [Vitamin D3 (5000 Iu)] 125 mcg PO DAILY 12/23/20 [History] Clopidogrel Bisulfate [Plavix] 75 mg PO DAILY 12/23/20 [History] Cyanocobalamin (Vitamin B-12) [Vitamin B-12] 1,000 mcg PO DAILY 12/23/20 [History] Fludrocortisone [Florinef] 0.05 mg PO BID 12/23/20 [History] Furosemide [Lasix] 20 mg PO QAM 12/23/20 [History] Gabapentin 300 mg PO TID 12/23/20 [History] Insulin Aspart (For Pump) [NovoLOG (For Pump)] 0.01 unit SQ-PUMP CONTINUOUS 12/23/20 [History] Isosorbide Mononitrate [Isosorbide Mononitrate ER] 30 mg PO QAM 12/23/20 [History] Magnesium Oxide 800 mg PO BID 12/23/20 [History] Metoprolol Tartrate [Lopressor] 25 mg PO BID 12/23/20 [History] Pantoprazole [Protonix] 40 mg PO QAM 12/23/20 [History] Potassium Chloride [Klor-Con M10] 20 meq PO BID 12/23/20 [History] Tamsulosin [Flomax] 0.4 mg PO DAILY 12/23/20 [History] lisinopriL [Zestril] 2.5 mg PO QAM 12/23/20 [History] rOPINIRole HCL [Requip] 2 mg PO HS 12/23/20 [History] Docusate [Colace] 100 mg PO BID #60 capsule 06/16/22 [Rx] Ferrous Sulfate [Iron (65 MG Elemental)] 325 mg PO BID #1 tab 06/16/22 [Rx] oxyCODONE HCL/ACETAMINOPHEN [Percocet 7.5-325 mg] 1 tab PO Q6HR PRN #28 tab 06/17/22 [Rx] Multivit-Min/FA/Lycopen/Lutein [Centrum Silver Men Tablet] 1 each PO 11/24/22 [History] levETIRAcetam [Keppra] 500 mg PO HS 11/24/22 [History] traMADol HCL 50 mg PO BID PRN 11/24/22 [History] Docusate [Colace] 100 mg PO BID #60 capsule 12/01/22 [Rx] Ondansetron [Zofran] 4 mg PO Q8HR PRN #21 tab 12/01/22 [Rx] oxyCODONE-APAP 7.5-325MG [Percocet 7.5-325 mg] 1 tab PO Q4HR PRN #42 tab 12/01/22 [Rx] Follow up Appointment(s)/Referral(s): Tayo Horn MD [STAFF PHYSICIAN] - 10 Days Activity/Diet/Wound Care/Special Instructions: Weight bear as tolerated May shower after 3 days if no bleeding Keep wound clean and dry Take meds as directed F/U with Dr. Horn in office Discharge Disposition: HOME WITH HOME HEALTH SERVICES
[2022-12-01 13:46] VITALS: BP 124/48; PULSE 86; RESP 20; TEMP 99.5
--- NOTE | 2022-12-01 16:38 | P.PN ---
Progress Note - Text Progress Note Date: 12/01/22 - Chief Complaint Knee surgery Hospital course: This is a pleasant 67-year-old patient, follows with Dr. Merida. Chronic stable medical conditions include CAD with a prior history of bypass before by Dr. Gold, diabetes-insulin pump, GERD, hypertension, hyperlipidemia, hypothyroid. CK D, Parkinson's Has undergone left total knee arthroplasty. Postprocedure pain is controlled. No nausea. No chest pain or short of breath. Laying in bed. December 01: Doing well. Laying in bed. Pain control. Eating fair. No nausea vomiting. Did work with therapy. Current medications reviewed Past medical history to include: CAD with a bypass, diabetes on insulin pump since 2005, GERD, hypertension, hyperlipidemia, hypothyroid, AICD, coronary bypass, CK D, Parkinson's Social history: Lives at a detention. Smoked for about 30 years stopped about 8 years ago. No alcohol. Physical examination: VITAL SIGNS: 99.5, 86, 20, 124/48, 96% room air GENERAL: awake comfortable EYES: Pupils equal. Conjunctiva normal. HEENT: External appearance of nose and ears normal, oral cavity grossly normal. NECK: JVD not raised; masses not palpable. HEART: First and second heart sounds are normal; no edema. LUNGS: Respiratory rate normal; clear to auscultation. ABDOMEN: Soft, nontender, liver spleen not palpable, no masses palpable. PSYCH: Alert and oriented x3; mood and affect normal. MUSCULOSKELETAL:No Clubbing/cyanosis;muscles-grossly intact, evidence of OA. Dressing over the left knee INVESTIGATIONS, reviewed in the clinical context: 12/01/2022: White count 8.5 hemoglobin 9.9 platelets 170 11/15/2022: White count 11.5 hemoglobin 12 platelets 190 potassium 5 BUN 31 and creatinine 1.6 Previous labs: Creatinine 1.2 in June 2022 Assessment and plan: -Left total knee arthroplasty. Pain control. DVT prophylaxis. -CAD with a prior history of bypass Aspirin, Lopressor, -Acute postprocedure blood loss anemia expected from surgery Ferrous sulfate twice a day -Diabetes mellitus type 2 on insulin pump, since 2005 Patient to continue his home insulin pump at home dose. Patient got a new [employer] pump 2 weeks ago -Restless leg syndrome Requip -Parkinson's disease Sinemet 2500 one tablet 4 times a day -Hyperlipidemia Lipitor -Essential hypertension Zestril, Lopressor -GERD Protonix -BPH Flomax Stable. Using insulin pump. Take [id number] ferrous sulfate. Other medications to continue. Follow-up with PCP next week Thank you Dr. Horn
== END 2022-12-01 15:16 | disposition home health service (06) ==
LOC: OR 05:36 → 4SSUR 09:12 → OR 12-01 15:16
PROVIDERS: ATTEND Orthopaedic Surgery Sports Medicine
DX: M17.12 Unilateral primary osteoarthritis, left knee (principal); G89.18 Other acute postprocedural pain; E03.9 Hypothyroidism, unspecified; E11.9 Type 2 diabetes mellitus without complications; E78.5 Hyperlipidemia, unspecified; I10 Essential (primary) hypertension; I25.10 Atherosclerotic heart disease of native coronary artery without angina pectoris; I25.2 Old myocardial infarction; Z79.4 Long term (current) use of insulin; Z79.82 Long term (current) use of aspirin; Z87.891 Personal history of nicotine dependence; Z95.1 Presence of aortocoronary bypass graft; Z95.810 Presence of automatic (implantable) cardiac defibrillator
CPT/HCPCS: 97161; 64999; 64448; 76942; 85025; 88300; 73560; 27447; C1776; C1713; C1751; J2250; J1100; J0690 ×2; J2405; J3010; J1170

== ENCOUNTER → 2024-05-27 | Outpatient (CLI) | payer MEDICARE ==
[2024-05-27 13:39] VITALS: BP 138/73; PULSE 62; RESP 16; TEMP 97.5
--- NOTE | 2024-05-27 15:52 | P.SLEEP ---
History of Present Illness H&P Date: 05/27/24 69-year-old male patient referred to me for sleep apnea management. This patient is known to have multiple medical problems and comorbidities and he has been having difficulty with sleep initiation and maintenance. Upon discussing this with his primary care physician, the patient was referred for a home sleep study that was conducted and the patient was found to have a moderately severe obstructive sleep apnea and is AHI was calculated to be at 23.2. He did encounter also some nocturnal oxygen desaturation based on the home sleep study that was done approximately 2023. Accordingly, the patient prescribed a APAP machine pressures of 5/15 cm of water. However, the patient was quite hesitant to undertake the treatment and based on that he came in for further discussion. Upon further questioning, the patient is having chronic problems with sleep initiation and sleep maintenance. Sleep seems to be quite fragmented. He goes to bed around 10 to 11 PM and he gets out of bed at around 6 to 7 AM in the morning. He is probably averaging around 5 to 6 hours of sleep. He was taking more than 30 minutes to fall asleep and the patient was given ramelteon by his primary care physician. This helped him with sleep induction. Despite that he has been having sleep fragmentation. He takes naps during the day and those naps last summer between 30 minutes and sometimes up to 3 hours. He has excessive fatigue and tiredness during the day. He admits to snore. He is very restless and he has symptoms of restless leg syndrome and he has been treated with Requip on outpatient basis. Moreover, he is currently being investigated for the possibilities of him having Parkinson's disease. No sleep paralysis. No hallucinations. No cataplexy. No sleepwalking. No sleep talking. He has chronic anxiety and he seems to have grinding as the patient has evidence of grinding on examination of his oral cavity and teeth. No recent weight gain. No head trauma. No seizure activity. His comorbidities are multiple. He is noted coronary artery disease and he has been above the previous [place] and the patient has undergone coronary artery bypass surgery in the past. He also has an AICD placed which I am assuming this was inserted for ischemic cardiomyopathy. His previous echocardiogram has shown systolic heart failure with an ejection fraction of 35%. He is also known to have diabetes mellitus type 1 with diabetic neuropathy and retinopathy and nephropathy, he has stage I- II chronic kidney disease, hypertension, hyperlipidemia, BPH and acid reflux. He suffers from chronic anxiety/depression. He has been involved in various jobs over the years and currently is fully retired. No history of stroke. No history of atrial fibrillation. He has undergone previous abdominal surgery for a perforated viscus and he has a major scar over the anterior abdominal wall along with the presence of incisional hernia and an umbilical hernia. His weight has been down by around 10 pounds attributed to various surgeries. No history of alcoholism. Notes of substance abuse. No stop smoking. His family history is essentially unknown at this point in time. Review of Systems Constitutional: Reports daytime sleepiness, Reports fatigue, Reports weakness, Reports weight loss Eyes: denies as per HPI, denies blurred vision, denies bulging eye, denies decreased vision, denies diplopia, denies discharge, denies dry eye, denies irritation, denies itching, denies pain, denies photophobia, denies loss of peripheral vision, denies loss of vision, denies tunnel vision/blind spots Ears: deny: decreased hearing, ear discharge, earache, tinnitus Ears, nose, mouth and throat: Reports as per HPI Breasts: absent: as per HPI, gynecomastia Cardiovascular: Reports dyspnea on exertion Respiratory: Reports sleep apnea Gastrointestinal: Reports as per HPI Genitourinary: Reports as per HPI Musculoskeletal: Reports as per HPI Musculoskeletal: absent: ankle pain, ankle stiffness, ankle swelling Integumentary: Reports as per HPI Neurological: Reports as per HPI Psychiatric: Reports anxiety, Reports depression, Reports hypersomnia, Reports insomnia, Reports sleep disturbances Endocrine: Reports as per HPI, Reports fatigue Hematologic/Lymphatic: Reports as per HPI Allergic/Immunologic: Reports as per HPI Past Medical History Past Medical History: Coronary Artery Disease (CAD), Heart Failure, COPD, Diabetes Mellitus, GERD/Reflux, Hyperlipidemia, Myocardial Infarction ([place]), Prostate Disorder, Sleep Apnea/CPAP/BIPAP, Thyroid Disorder Additional Past Medical History / Comment(s): Quadruple heart bypass, cataract surgery - bilateral, Defibrilator, prostrate surgery, acid reflux surgery, r& l total knee replacement, penile implant Last Myocardial Infarction Date:: 2016 History of Any Multi-Drug Resistant Organisms: None Reported Past Surgical History: Orthopedic Surgery Additional Past Surgical History / Comment(s): REPAIR OF DIAPHRAGM HOLE. ([facility] HIATAL HERNIA REPAIRED. Catarac surgery 2017, bilateral knee replacement, penile implant, acid reflux surgery, quadruple bypass, prostrate surgery, stomach and small intestine surgery, defibrillator 08-26-17 Past Psychological History: No Psychological Hx Reported Smoking Status: Former smoker Past Alcohol Use History: Occasional Past Drug Use History: Marijuana Additional Drug Use History / Comment(s): patient states he smoked for 30 years and "started in his 20's. Stopped about 8 years ago" - Past Family History Father Family Medical History: Cancer Additional Family Medical History / Comment(s): Triple heart bypass, passed at age 78. Patient unsure which type of cancer dad had, passed from the cancer. (Brother had esophageal cancer and mother had breast cancer X 2.) Medications and Allergies Home Medications Medication Instructions Recorded Confirmed Type Aspirin [Adult Low Dose Aspirin EC] 81 mg PO QAM 12/23/20 11/30/22 History Atorvastatin [Lipitor] 20 mg PO HS 12/23/20 11/30/22 History Carbidopa-Levodopa 25-100 mg 1 each PO QID 12/23/20 11/30/22 History [Sinemet 25-100 mg] Cholecalciferol (Vitamin D3) 125 mcg PO DAILY 12/23/20 11/30/22 History [Vitamin D3 (5000 Iu)] Clopidogrel Bisulfate [Plavix] 75 mg PO DAILY 12/23/20 11/30/22 History Cyanocobalamin (Vitamin B-12) 1,000 mcg PO DAILY 12/23/20 11/30/22 History [Vitamin B-12] Fludrocortisone [Florinef] 0.05 mg PO BID 12/23/20 11/30/22 History Furosemide [Lasix] 20 mg PO QAM 12/23/20 11/30/22 History Insulin Aspart (For Pump) [NovoLOG 0.01 unit SQ-PUMP CONTINUOUS 12/23/20 11/30/22 History (For Pump)] Isosorbide Mononitrate [Isosorbide 30 mg PO QAM 12/23/20 11/30/22 History Mononitrate ER] Magnesium Oxide 800 mg PO BID 12/23/20 11/30/22 History Metoprolol Tartrate [Lopressor] 25 mg PO BID 12/23/20 11/30/22 History Pantoprazole [Protonix] 40 mg PO QAM 12/23/20 11/30/22 History Potassium Chloride [Klor-Con M10] 20 meq PO BID 12/23/20 11/30/22 History Tamsulosin [Flomax] 0.4 mg PO DAILY 12/23/20 11/30/22 History lisinopriL [Zestril] 2.5 mg PO QAM 12/23/20 11/30/22 History rOPINIRole HCL [Requip] 2 mg PO HS 12/23/20 11/30/22 History Docusate [Colace] 100 mg PO BID #60 capsule 06/16/22 11/30/22 Rx Ferrous Sulfate [Iron (65 MG 325 mg PO BID #1 tab 06/16/22 11/30/22 Rx Elemental)] Mv-Min/Folic/K1/Lycopen/Lutein 1 each PO 11/24/22 History [Centrum Silver Men Tablet] levETIRAcetam [Keppra] 500 mg PO HS 11/24/22 11/30/22 History Acetaminophen Tab [Tylenol] 650 mg PO Q4HR PRN tab 12/01/22 Rx Docusate [Colace] 100 mg PO BID #60 capsule 12/01/22 Rx Gabapentin 300 mg PO TID #9 cap 12/01/22 Rx Ondansetron [Zofran] 4 mg PO Q8HR PRN #21 tab 12/01/22 Rx oxyCODONE-APAP 7.5-325MG [Percocet 1 tab PO Q4HR PRN #42 tab 12/01/22 Rx 7.5-325 mg] Allergies Allergy/AdvReac Type Severity Reaction Status Date / Time No Known Allergies Allergy Verified 11/30/22 05:59 Physical Exam Vitals: Vital Signs Temp Pulse Resp BP Pulse Ox 05/27/24 13:38 97.5 F L 62 16 138/73 99 Intake and Output 05/27/24 05/27/24 05/27/24 06:59 14:59 22:59 Other: Weight 67.132 kg General Appearance,, comfortable, no acute distress. The patient appeared well nourished and normally developed. Vital signs as documented. Head exam is unremarkable. No scleral icterus or corneal arcus noted. Neck is without jugular venous distension, thyromegaly, or carotid bruits. Examination of his oral cavity reveals evidence of grinding of his teeth more so on his lower teeth. Carotid upstrokes are brisk bilaterally. Lungs are clear to auscultation and percussion. Cardiac exam reveals the PMI to be normally sized and situated. The patient has a pacer/defibrillator in place. Rhythm is regular. First and second heart sounds normal. No murmurs, rubs or gallops. Abdominal exam reveals normal bowel sounds, no masses, no organomegaly and no aortic enlargement. The patient has a scar of previous abdominal surgery and this is a midline scar. The patient has incisional hernia and umbilical hernia in place. No direct tenderness. No rebound tenderness. No guarding. Extremities are nonedematous and both femoral and pedal pulses are normal. Examination of the skin revealed no evidence of significant rashes, suspicious appearing nevi or other concerning lesions. Neurologically, the patient is awake and alert and the patient does not have any focal neurological deficit. Cranial nerves are essentially intact. Assessment and Plan Plan: Chronic hypersomnia/fatigue, which is essentially considered to be multifactorial. This patient has undergone a home sleep study back in January 2024 and was diagnosed having obstructive sleep apnea which seems to be at least moderately severe with an AHI of 23. Nevertheless, he does have a series of comorbidities causing sleep fragmentation contributing to chronic symptoms of sleep induction and maintenance insomnia. The patient is on Remeron for sleep induction. His sleep remains quite fragmented. He does have symptoms of restless leg syndrome. He does have symptoms of chronic anxiety and depression and early signs of Parkinson's. Other comorbidities include congestion heart failure, coronary artery disease, previous bypass surgery and a pacemaker insertion. He does have high level of anxiety. Patient is not sure if he is going to be able to tolerate CPAP therapy at this point and has not taken any final decision regarding this treatment. Grinding of the teeth, probably related to chronic anxiety Restless leg syndrome, maintained on Requip Sleep induction and maintenance insomnia currently on ramelteon Coronary artery disease previous bypass surgery Chronic systolic heart failure with ejection fraction of 35% and the patient has an AICD in place Hypertension Hyperlipidemia Osteoarthritis BPH Chronic anxiety/depression Diabetic retinopathy Diabetic neuropathy Previous history of bowel infarction/perforation the patient has undergone previous abdominal surgery with bowel resection and he does have a incisional hernia/umbilical hernia at this point Previous history of nasal septal deviation with previous septoplasty Plan This is a very complicated situation. The sleep apnea in the grand scheme of things is probably a contributing factor to his sleep fragmentation. However, as mentioned above, there are other comorbidities affecting this patient's sleep quality and contributing to his sleep fragmentation and the patient has sleep on set and maintenance insomnia. At this point in time, the patient is unable to turn which will be continued. I am inclined to order a screening polysomnography to reevaluate the patient's sleep apnea and at the same time evaluate his sleep architecture and decide if treating sleep apnea would cause any significant improvement in sleep quality in general. As mentioned, sleep apnea is not the sole contributing factor for his symptoms. I reviewed his medication. Reviewed his comorbidities. The patient has obvious issues with sleep hygiene measures. He needs to eliminate all naps during the day and consolidate his sleep hours mainly at bedtime. We discussed issues related sleep scheduling, sleep hygiene measures. Final recommendation will be done on CPAP therapy based on the full polysomnography that will be done within the next few weeks. Will continue to follow. Sleep Note - Sleep Data ESS Total: 4 - Sleep Note Sleep Note: Temperature: 97.5 F Pulse Rate: 62 Respiratory Rate: 16 Blood Pressure: 138/73 SpO2: 99 Height: 5 ft 10 in Weight: 67.132 kg BMI: Neck Circumference: 15.3
== END ==
LOC: 3 N SLEEP 13:23
PROVIDERS: ATTEND Internal Medicine Critical Care Medicine
CPT/HCPCS: 99211

== ENCOUNTER 2024-06-18 19:17 | Outpatient (CLI) | payer MEDICARE ==
--- NOTE | 2024-07-02 21:40 | P.PCN ---
Date of Procedure: 06/18/24 Operative Findings: 69-year-old male patient referred to me for sleep apnea management. This patient is known to have multiple medical problems and comorbidities and he has been having difficulty with sleep initiation and maintenance. Upon discussing this with his primary care physician, the patient was referred for a home sleep study that was conducted and the patient was found to have a moderately severe obstructive sleep apnea and is AHI was calculated to be at 23.2. He did encounter also some nocturnal oxygen desaturation based on the home sleep study that was done approximately 2023. Accordingly, the patient prescribed a APAP machine pressures of 5/15 cm of water. However, the patient was quite hesitant to undertake the treatment and based on that he came in for further discussion. Upon further questioning, the patient is having chronic problems with sleep initiation and sleep maintenance. Sleep seems to be quite fragmented. He goes to bed around 10 to 11 PM and he gets out of bed at around 6 to 7 AM in the morning. He is probably averaging around 5 to 6 hours of sleep. He was taking more than 30 minutes to fall asleep and the patient was given ramelteon by his primary care physician. This helped him with sleep induction. Despite that he has been having sleep fragmentation. He takes naps during the day and those naps last summer between 30 minutes and sometimes up to 3 hours. He has excessive fatigue and tiredness during the day. He admits to snore. He is very restless and he has symptoms of restless leg syndrome and he has been treated with Requip on outpatient basis. Moreover, he is currently being investigated for the possibilities of him having Parkinson's disease. No sleep paralysis. No hallucinations. No cataplexy. No sleepwalking. No sleep talking. He has chronic anxiety and he seems to have grinding as the patient has evidence of grinding on examination of his oral cavity and teeth. No recent weight gain. No head trauma. No seizure activity. His comorbidities are multiple. He is noted coronary artery disease and he has been above the previous DE and the patient has undergone coronary artery bypass surgery in the past. He also has an AICD placed which I am assuming this was inserted for ischemic cardiomyopathy. His previous echocardiogram has shown systolic heart failure with an ejection fraction of 35%. He is also known to have diabetes mellitus type 1 with diabetic neuropathy and retinopathy and nephropathy, he has stage I- II chronic kidney disease, hypertension, hyperlipidemia, BPH and acid reflux. He suffers from chronic anxiety/depression. He has been involved in various jobs over the years and currently is fully retired. No history of stroke. No history of atrial fibrillation. He has undergone previous abdominal surgery for a perforated viscus and he has a major scar over the anterior abdominal wall al bibi with the presence of incisional hernia and an umbilical hernia. His weight has been down by around 10 pounds attributed to various surgeries. No history of alcoholism. Notes of substance abuse. No stop smoking. His family history is essentially unknown at this point in time. Pertinent physical findings Weight is 148 pounds with a body mass index of 21.2 Technical description The patient was studied using a standard complex polysomnography protocol that included recording of the Lead II EKG, Central, occipital and frontal EEG, right and left outer canthus EOG, submental EMG, right and left anterior tibialis EMG, respiratory airflow by thermocouple and or pressure/flow transducer, respiratory efforts by abdominal and thoracic PVDF belts, oxygen saturation by cable oximetry. Position by observation synchronized the PSG. Equipment used: [employer]. Sleep characteristics/architecture The patient spent approximately 479.5 minutes in bed. Total sleep time was 372.5 minutes. The overall sleep efficiency was 77.7%. Related to sleep onset was 40 minutes. Latency to REM sleep was 257.0 minutes. The sleep architecture was characterized by 14.1% stage I sleep, 82.0% stage II sleep, 0% stage III sleep and 3.9% REM sleep. The total arousal index was 15.8. The wake after sleep onset time was 92 minutes. Respiratory analysis The sleep study showed a total of 18 obstructive events of which 5 were obstructive apneas, 1 was mixed apnea and 12 obstructive hypopneas and the resulting AHI was 2.6. There was also 1 central apnea with a central apnea index of 0.2. Respiratory arousal index was 0.3 Oxygenation analysis the baseline pulse ox was 89% while awake. Minimum pulse ox was 81% and the patient spent approximately 3 hours of the treatment of the sleep time below pulse ox of 89% with a minimum pulse ox of 87% during REM sleep. Sleep continuity summary The total arousal count was 98 with an index of 15.8. Respiratory arousal index was 0.3 Periodic limb movement summary A total of 152. At the movement activity was noted with an index of 24.5. In addition, there was a total of 8 periodic limb movement activity with arousals with an index of 0.3 Cardiac summary Average heart rate was 72 with a minimum heart rate of 64 and a maximum heart of 81. Assessment Primary snoring without evidence of any significant sleep breathing disorder. The patient was found to have an AHI of 2.6. Evergreen score is at 4. Baseline hypoxemia along with oxygen desaturations and a total of 1.5 L of O2 was added during the study to maintain saturation above 90%, not related to obstructive sleep apnea No evidence of any significant insomnia. Overall sleep efficiency was 77% with a 14 minutes of latency to sleep Chronic hypersomnia/fatigue, which is essentially considered to be multifactorial. This patient has undergone a home sleep study back in January 2024 and was diagnosed having obstructive sleep apnea which seems to be at least moderately severe with an AHI of 23. Nevertheless, he does have a series of comorbidities causing sleep fragmentation contributing to chronic symptoms of sleep induction and maintenance insomnia. The patient is on Remeron for sleep induction. He does have symptoms of chronic anxiety and depression and early signs of Parkinson's. Other comorbidities include congestion heart failure, coronary artery disease, previous bypass surgery and a pacemaker insertion. He does have high level of anxiety. Grinding of the teeth, probably related to chronic anxiety Restless leg syndrome, maintained on Requip Sleep induction and maintenance insomnia currently on ramelteon Coronary artery disease previous bypass surgery Chronic systolic heart failure with ejection fraction of 35% and the patient has an AICD in place Hypertension Hyperlipidemia Osteoarthritis BPH Chronic anxiety/depression Diabetic retinopathy Diabetic neuropathy Previous history of bowel infarction/perforation the patient has undergone previous abdominal surgery with bowel resection and he does have a incisional hernia/umbilical hernia at this point Previous history of nasal septal deviation with previous septoplasty Plan This is a very complicated situation. Obviously, there is no evidence of any significant sleep breathing disorder contributing to the patient's sleep fragmentation. As mentioned above, there are other comorbidities affecting this patient's sleep quality and contributing to his sleep fragmentation and the patient has sleep onset and maintenance insomnia. His insomnia has been adequate treated with ramelteon and this will be continued. No significant arousals related to. Regular movement activity and the patient is maintained on Requip. Will continue same medications for now. The patient has obvious issues with sleep hygiene measures. He needs to eliminate all naps during the day and consolidate his sleep hours mainly at bedtime. We discussed issues related sleep scheduling, sleep hygiene measures. No need for CPAP therapy. I am a bit surprised with his nocturnal oxygen desaturation encountered during sleep study. Will do another nocturnal oxygen analysis and decide if O2 therapy will be of any value for this patient during sleep as the patient encountered oxygen desaturations when oxygen was provided during the sleep study. Sam Valle
== END 2024-06-19 06:20 | disposition home or self-care (01) ==
LOC: 3 N SLEEP 19:17
PROVIDERS: ATTEND Internal Medicine Critical Care Medicine
DX: G47.33 Obstructive sleep apnea (adult) (pediatric) (principal); G47.10 Hypersomnia, unspecified; F32.A Depression, unspecified; F41.9 Anxiety disorder, unspecified; I11.0 Hypertensive heart disease with heart failure; I50.22 Chronic systolic (congestive) heart failure; I25.10 Atherosclerotic heart disease of native coronary artery without angina pectoris; E78.5 Hyperlipidemia, unspecified; N40.0 Benign prostatic hyperplasia without lower urinary tract symptoms; M19.90 Unspecified osteoarthritis, unspecified site; E11.319 Type 2 diabetes mellitus with unspecified diabetic retinopathy without macular edema; E11.40 Type 2 diabetes mellitus with diabetic neuropathy, unspecified; G25.81 Restless legs syndrome; G47.00 Insomnia, unspecified; K42.9 Umbilical hernia without obstruction or gangrene; Z95.810 Presence of automatic (implantable) cardiac defibrillator; Z95.1 Presence of aortocoronary bypass graft; Z79.4 Long term (current) use of insulin; Z79.899 Other long term (current) drug therapy
CPT/HCPCS: 95810

== ENCOUNTER 2024-11-18 06:34 | Day surgery (SDC) | payer MEDICARE ==
[~2024-11-18 06:34] MED LIST changes: -ACETAMINOPHEN TAB 500 MG TAB PO PRN; -GABAPENTIN 300 MG CAP PO PRN; +LIDOCAINE 1% (10MG/ML) FOR IV START INTRADERMA PRN; -MELOXICAM 7.5 MG TAB PO PRN; -ONDANSETRON 4 MG/2 ML VIAL IVP PRN; -TRANEXAMIC ACID IN NACL,ISO-OS 1,000 MG in SALINE 1 100ML.BAG IVPB PRN
[2024-11-18] MEDS: IV FLUID CONTINUATION 1,000 ML IV ONE (07:20)
[2024-11-18 07:57] LABS: Glucose,Whole Blood 88 mg/dL (70-110)
[2024-11-18 08:00] VITALS: RESP 16; TEMP 98
[2024-11-18] MEDS: LACTATED RINGERS 1,000 ML IV SCH (08:04)
[2024-11-18] MEDS ORDERED: PHENYLEPHRINE-0.9% NACL SYG 1,000 MCG/10 ML SYRINGE ONE (08:09)
[2024-11-18] MEDS ORDERED: PROPOFOL 10 MG/ML 20 ML VIAL IV ONE (08:09)
--- NOTE | 2024-11-18 08:34 | P.PCN ---
Date of Procedure: 11/18/24 Procedure(s) Performed: BRIEF HISTORY: Patient is a 69-year-old pleasant white male scheduled for an elective colonoscopy as a part of screening for by history of colon polyps. PROCEDURE PERFORMED: Colonoscopy. PREOPERATIVE DIAGNOSIS: Screening for prior history of colon polyps. IV sedation per Anesthesia. PROCEDURE: After informed consent was obtained, the patient, was brought into the endoscopy unit. IV sedation was administered by Anesthesia under continuous monitoring. Digital rectal examination was normal. Initially the Olympus CF-160 flexible video colonoscope was then inserted in the rectum, gradually advanced into the cecum without any difficulty. Careful examination was performed as the scope was gradually being withdrawn. Ileocecal valve and the appendiceal orifice were visualized and appeared normal. Prep was fair.. Mucosa of the cecum, ascending colon, transverse colon, descending colon, sigmoid colon, and rectum appeared normal. Retroflexion was performed in the rectum and no lesions were seen. The patient tolerated the procedure well. IMPRESSION: Normal-appearing colon from rectum to cecum with no evidence of colorectal neoplasia Sigmoid diverticulosis. RECOMMENDATIONS: Findings of this examination were discussed with the patient as well as his family. He was advised to have repeat screening colonoscopy in 10 years..
[2024-11-18 09:00] VITALS: BP 113/66; PULSE 59
== END 2024-11-18 09:22 | disposition home or self-care (01) ==
LOC: ORWHC2ENDO 06:34
PROVIDERS: ATTEND Internal Medicine Gastroenterology
DX: Z12.11 Encounter for screening for malignant neoplasm of colon (principal); K57.30 Diverticulosis of large intestine without perforation or abscess without bleeding; I25.2 Old myocardial infarction; I25.10 Atherosclerotic heart disease of native coronary artery without angina pectoris; I11.0 Hypertensive heart disease with heart failure; I50.9 Heart failure, unspecified; E78.5 Hyperlipidemia, unspecified; J44.9 Chronic obstructive pulmonary disease, unspecified; G47.33 Obstructive sleep apnea (adult) (pediatric); E11.9 Type 2 diabetes mellitus without complications; N40.0 Benign prostatic hyperplasia without lower urinary tract symptoms; K21.9 Gastro-esophageal reflux disease without esophagitis; G20.A1 Parkinson's disease without dyskinesia, without mention of fluctuations; E03.9 Hypothyroidism, unspecified; Z96.41 Presence of insulin pump (external) (internal); Z79.890 Hormone replacement therapy; Z79.02 Long term (current) use of antithrombotics/antiplatelets; Z79.899 Other long term (current) drug therapy; Z86.0100 Personal history of colon polyps, unspecified; Z79.51 Long term (current) use of inhaled steroids; Z79.4 Long term (current) use of insulin; Z95.5 Presence of coronary angioplasty implant and graft
CPT/HCPCS: 45378; J2704; J2371

== ENCOUNTER 2025-02-19 02:09 | Inpatient (IN) | payer MEDICARE ==
--- NOTE | 2025-02-19 02:50 | ED ---
Extremity Problem HPI - General Source: patient, EMS, RN notes reviewed Mode of arrival: EMS Limitations: no limitations <Lizbeth Alarcon - Last Filed: 02/19/25 03:58> <Matthew Boss - Last Filed: 02/19/25 04:38> - General Chief complaint: Extremity Problem,Nontraumatic Stated complaint: feet and hand pain Time Seen by Provider: 02/19/25 02:47 - History of Present Illness Initial comments: 70-year-old male presenting for bilateral hand and feet pain/numbness x 2 days. Reports the symptoms are chronic in nature but have been worsening over the past 2 days. Also reports he has been very shaky and is having difficulty opening his pill bottles and has been spilling his drinks due to tremors. Denies chest pain, shortness of breath. States he is on an insulin pump but it fell out when he was in triage. History of CAD, heart failure, COPD, diabetes, hyperlipidemia, and hypertension. Denies illicit drug or alcohol use. He lives at home by himself. (Lizbeth Alarcon) - Related Data Home Medications Medication Instructions Recorded Confirmed Aspirin [Adult Low Dose Aspirin EC] 81 mg PO QAM 12/23/20 11/17/24 Atorvastatin [Lipitor] 20 mg PO HS 12/23/20 11/17/24 Carbidopa-Levodopa 25-100 mg 1 each PO QID 12/23/20 11/17/24 [Sinemet 25-100 mg] Cholecalciferol (Vitamin D3) 125 mcg PO DAILY 12/23/20 11/17/24 [Vitamin D3 (5000 Iu)] Clopidogrel Bisulfate [Plavix] 75 mg PO DAILY 12/23/20 11/17/24 Cyanocobalamin (Vitamin B-12) 1,000 mcg PO DAILY 12/23/20 11/17/24 [Vitamin B-12] Fludrocortisone [Florinef] 0.05 mg PO BID 12/23/20 11/17/24 Furosemide [Lasix] 20 mg PO QAM 12/23/20 11/17/24 Insulin Aspart (For Pump) [NovoLOG 0.01 unit SQ-PUMP CONTINUOUS 12/23/20 11/17/24 (For Pump)] Isosorbide Mononitrate [Isosorbide 30 mg PO QAM 12/23/20 11/17/24 Mononitrate ER] Magnesium Oxide 800 mg PO BID 12/23/20 11/17/24 Metoprolol Tartrate [Lopressor] 50 mg PO BID 12/23/20 11/17/24 Pantoprazole [Protonix] 20 mg PO QAM 12/23/20 11/17/24 Potassium Chloride [Klor-Con M10] 20 meq PO BID 12/23/20 11/17/24 Tamsulosin [Flomax] 0.4 mg PO DAILY 12/23/20 11/17/24 lisinopriL [Zestril] 2.5 mg PO QAM 12/23/20 11/17/24 rOPINIRole HCL [Requip] 2 mg PO HS 12/23/20 11/17/24 Mv-Min/Folic/K1/Lycopen/Lutein 1 each PO DAILY 11/24/22 11/17/24 [Centrum Silver Men Tablet] levETIRAcetam [Keppra] 1,000 mg PO HS 11/24/22 11/17/24 Albuterol Inhaler [Ventolin Hfa 1 - 2 puff INHALATION Q6H PRN 11/17/24 11/17/24 Inhaler] Ferrous Sulfate [Iron (65 MG 325 mg PO DAILY 11/17/24 11/17/24 Elemental)] Levothyroxine Sodium [Synthroid] 50 mcg PO DAILY 11/17/24 11/17/24 Zaleplon [Sonata] 5 mg PO HS PRN 11/17/24 11/17/24 traMADol HCL 50 mg PO BID PRN 11/17/24 11/17/24 Previous Rx's Medication Instructions Recorded Docusate [Colace] 100 mg PO BID #60 capsule 06/16/22 Acetaminophen Tab [Tylenol] 650 mg PO Q4HR PRN tab 12/01/22 Gabapentin 300 mg PO TID #9 cap 12/01/22 Allergies Allergy/AdvReac Type Severity Reaction Status Date / Time No Known Allergies Allergy Verified 02/19/25 02:11 Review of Systems ROS Other: All systems not noted in ROS Statement are negative. <Lizbeth Alarcon - Last Filed: 02/19/25 03:58> ROS Other: All systems not noted in ROS Statement are negative. <Matthew Boss - Last Filed: 02/19/25 04:38> ROS Statement: Those systems with pertinent positive or pertinent negative responses have been documented in the HPI. Past Medical History Past Medical History: Coronary Artery Disease (CAD), Heart Failure, COPD, Diabetes Mellitus, GERD/Reflux, Hyperlipidemia, Hypertension, Myocardial Infarction ([place]), Neurologic Disorder, Prostate Disorder, Thyroid Disorder Additional Past Medical History / Comment(s): early parkinson's, has insulin pump Last Myocardial Infarction Date:: April 2017 History of Any Multi-Drug Resistant Organisms: None Reported Past Surgical History: AICD, Coronary Bypass/CABG, Hernia Repair, Joint Replacement, Orthopedic Surgery, Prostate Surgery Additional Past Surgical History / Comment(s): REPAIR OF DIAPHRAGM HOLE ([facility]). HIATAL HERNIA REPAIRED. Cataract surgery, bilateral knee replacement, penile implant, acid reflux surgery, quadruple bypass 1995, prostate surgery, s tomach and small intestine surgery Past Anesthesia/Blood Transfusion Reactions: No Reported Reaction Type of Cardiac Device: AICD Device Placement Date:: 2016 Past Psychological History: No Psychological Hx Reported Smoking Status: Former smoker Past Alcohol Use History: None Reported Past Drug Use History: None Reported - Past Family History Mother Family Medical History: Cancer Father Family Medical History: Cancer Brother(s) Family Medical History: Cancer <Lizbeth Alarcon - Last Filed: 02/19/25 03:58> General Exam Limitations: no limitations General appearance: alert, in no apparent distress Head exam: Present: atraumatic, normocephalic, normal inspection Eye exam: Present: normal appearance, PERRL, EOMI. Absent: scleral icterus, conjunctival injection, periorbital swelling ENT exam: Present: normal exam, mucous membranes moist Respiratory exam: Present: normal lung sounds bilaterally. Absent: respiratory distress, wheezes, rales, rhonchi, stridor Cardiovascular Exam: Present: regular rate, normal rhythm, normal heart sounds. Absent: systolic murmur, diastolic murmur, rubs, gallop, clicks GI/Abdominal exam: Present: soft, normal bowel sounds. Absent: distended, tenderness, guarding, rebound, rigid Extremities exam: Present: normal inspection, full ROM, normal capillary refill. Absent: tenderness, pedal edema, joint swelling, calf tenderness Neurological exam: Present: alert, oriented X3, CN II-XII intact Psychiatric exam: Present: normal affect, normal mood Skin exam: Present: warm, dry, intact, normal color. Absent: rash <Lizbeth Alarcon - Last Filed: 02/19/25 03:58> Course Vital Signs 02/19/25 02/19/25 02:11 04:33 Temperature 98.2 F Pulse Rate 89 99 Respiratory 18 17 Rate Blood Pressure 128/67 115/74 O2 Sat by Pulse 97 93 L Oximetry Medical Decision Making - Lab Data Result diagrams: 02/19/25 03:05 - EKG Data -: EKG Interpreted by Me <Lizbeth Alarcon - Last Filed: 02/19/25 03:58> - Lab Data Result diagrams: 02/19/25 03:05 02/19/25 03:05 <Matthew Boss Papito - Last Filed: 02/19/25 04:38> - Medical Decision Making Was pt. sent in by a medical professional or institution ([facility], [facility], urgent care, hospital, or custodial...) When possible be specific @ -No Did you speak to anyone other than the patient for history (EMS, parent, family, police, friend...)? What history was obtained from this source @ -No Did you review nursing and triage notes (agree or disagree)? Why? @ -I reviewed and agree with nursing and triage notes Were old charts reviewed (outside hosp., previous admission, EMS record, old EKG, old radiological studies, urgent care reports/EKG's, custodial records)? Report findings @ -No old charts were reviewed Differential Diagnosis (chest pain, altered mental status, abdominal pain women, abdominal pain men, vaginal bleeding, weakness, fever, dyspnea, syncope, headache, dizziness, GI bleed, back pain, seizure, CVA, palpatations, mental health, musculoskeletal)? @ -Differential Musculoskeletal Muscular strain, contusion, ligament sprain, fracture, arthritis, septic arthritis, bursitis, cellulitis, muscle spasm, nerve compression, DVT, arterial occlusion, herpes zoster, electrolyte abnormality, tumor.... This is not meant to be in all inclusive list EKG interpreted by me (3pts min.). @ -[As above X-rays interpreted by me (1pt min.). @ -None done CT interpreted by me (1pt min.). @ -None done U/S interpreted by me (1pt. min.). @ -None done What testing was considered but not performed or refused? (CT, X-rays, U/S, labs)? Why? @ -None What meds were considered but not given or refused? Why? @ -None Did you discuss the management of the patient with other professionals (professionals i.e. , PA, [facility], lab, RT, psych nurse, socially responsible investment adviser, bank manager, te acher, chief accounting officer, business case analyst)? Give summary @ -No Was smoking cessation discussed for >3mins.? @ -No Was critical care preformed (if so, how long)? @ -No Were there social determinants of health that impacted care today? How? (Homelessness, low income, unemployed, alcoholism, drug addiction, transportation, low edu. Level, literacy, decrease access to med. care, senior care, rehab)? @ -No Was there de-escalation of care discussed even if they declined (Discuss DNR or withdrawal of care, Hospice)? DNR status @ -No What co-morbidities impacted this encounter? (DM, HTN, Smoking, COPD, CAD, Cancer, CVA, ARF, Chemo, Hep., AIDS, mental health diagnosis, sleep apnea, morbid obesity)? @ -[None Was patient admitted / discharged? Hospital course, mention meds given and route, prescriptions, significant lab abnormalities, going to OR and other pertinent info. @ -70-year-old male presenting for bilateral hand and feet pain/numbness x 2 days with associated shakiness. States the symptoms are chronic but have been worsening over the past 2 days. Vital signs are within acceptable limits. Patient is neurovascularly intact to bilateral upper and lower extremities. Case signed out to my ED attending NoneNoNoNoNoNoNoneNoneNone doneNone doneNone doneAs aboveNo old charts were reviewedI reviewed and agree with nursing and triage notesNoNoDr. Boss at time of shift change pending labwork and disposition. (Lizbeth Alarcon) Patient had presented with acute on chronic bilateral hand and feet pain and tingling. Patient is noted to have very low calcium at 5. His magnesium is 1.5. He is given 2 g of calcium gluconate and magnesium IV. Patient will be admitted for evaluation treatment of hypocalcemia. [facility] on consult[facility] ([facility]) - Lab Data Lab Results 02/19/25 02/19/25 Range/Units 03:05 03:05 WBC 13.83 H (4.50-10.00) 10*3/uL RBC 2.97 L (4.40-5.60) 10*6/uL Hgb 10.5 L (13.0-17.0) g/dL Hct 31.3 L (39.6-50.0) % MCV 105.4 H (80.0-97.0) fL MCH 35.4 H (27.0-32.0) pg MCHC 33.5 (32.0-37.0) g/dL Plt Count 115 L (140-440) 10*3/uL MPV 11.1 (9.5-12.2) fL Immature Gran % (Auto) 0.6 % Neutrophils % 82.9 % Lymphocytes % 6.1 % Monocytes % 10.1 % Eosinophils % 0.1 % Basophils % 0.2 % Immature Gran # 0.08 H (0.00-0.04) 10*3/uL Neutrophils # 11.46 H (1.80-7.70) 10*3/uL Lymphocytes # 0.85 L (0.90-5.00) 10*3/uL Monocytes # 1.40 H (0.20-1.00) 10*3/uL Eosinophils # 0.01 L (0.04-0.35) 10*3/uL Basophils # 0.03 (0.00-0.10) 10*3/uL Manual Slide Review Performed Immature Plt Fraction 3.7 (1.1-6.1) % Sodium 137 (137-145) mmol/L Potassium 3.5 (3.5-5.1) mmol/L Chloride 104 (98-107) mmol/L Carbon Dioxide 25 (22-30) mmol/L Anion Gap 8 mmol/L BUN 25 H (9-20) mg/dL Creatinine 1.24 (0.66-1.25) mg/dL Est GFR (CKD-EPI)AfAm 68 (>60 ml/min/1.73 sqM) Est GFR (CKD-EPI)NonAf 59 (>60 ml/min/1.73 sqM) Glucose 106 H (74-99) mg/dL Calcium 5.4 L* (8.4-10.2) mg/dL Magnesium 1.5 L (1.6-2.3) mg/dL Total Bilirubin 0.9 (0.2-1.3) mg/dL AST 26 (17-59) U/L ALT 20 (4-49) U/L Alkaline Phosphatase 107 (38-126) U/L Total Protein 5.7 L (6.3-8.2) g/dL Albumin 3.0 L (3.5-5.0) g/dL - EKG Data EKG Comments: EKG reveals normal sinus rhythm with occasional PVCs. Ventricular rate 87 bpm, FL interval not calculated, QRS duration 98, QT/QTc 381/426 (Lizbeth Alarcon) Disposition <Lizbeth Alarcon - Last Filed: 02/19/25 03:58> Is patient prescribed a controlled substance at d/c from ED?: No Time of Disposition: 04:38 <Matthew Boss - Last Filed: 02/19/25 04:38> Clinical Impression: Hypocalcemia Disposition: ADMITTED IP TO THIS HOSP Condition: Stable Referrals: Himanshu Garner MD [Primary Care Provider] - 1-2 days
[2025-02-19 03:18] LABS: Basophils # (A) 0.03 10*3/uL (0.00-0.10); Basophils % (A) 0.2 %; Eosinophils # (A) 0.01 10*3/uL (0.04-0.35); Eosinophils % (A) 0.1 %; HCT 31.3 % (39.6-50.0); HGB 10.5 g/dL (13.0-17.0); Immature Platelet Fraction 3.7 % (1.1-6.1); Lymphocytes # (A) 0.85 10*3/uL (0.90-5.00); Lymphocytes % (A) 6.1 %; MCH 35.4 pg (27.0-32.0); MCHC 33.5 g/dL (32.0-37.0); MCV 105.4 fL (80.0-97.0); Mean Platelet Volume 11.1 fL (9.5-12.2); Monocytes % (A) 10.1 %; Neutrophils # (A) 11.46 10*3/uL (1.80-7.70); Neutrophils % (A) 82.9 %; Platelet Count 115 10*3/uL (140-440); RBC 2.97 10*6/uL (4.40-5.60); RDW 14.9 % (11.5-14.5); WBC 13.83 10*3/uL (4.50-10.00)
[2025-02-19] MEDS: ACETAMINOPHEN TAB 500 MG TAB PO STA (03:21)
[2025-02-19 03:58] LABS: ALT 20 U/L (4-49); AST 26 U/L (17-59); African American GFR (CKD) 68 (>60 ml/min/1.73 sqM); Alkaline Phosphatase 107 U/L (38-126); Anion Gap 8 mmol/L; Blood Urea Nitrogen 25 mg/dL (9-20); Carbon Dioxide 25 mmol/L (22-30); Chloride 104 mmol/L (98-107); Glucose 106 mg/dL (74-99); Magnesium 1.5 mg/dL (1.6-2.3); Non-African American GFR(CKD) 59 (>60 ml/min/1.73 sqM); Potassium 3.5 mmol/L (3.5-5.1); Sodium 137 mmol/L (137-145); Total Bilirubin 0.9 mg/dL (0.2-1.3); Total Protein 5.7 g/dL (6.3-8.2)
[2025-02-19 04:02] LABS: Calcium 5.4 mg/dL (8.4-10.2)
[2025-02-19] MEDS: CALCIUM GLUCONATE IN NACL 2 GM in SALINE 1 100ML.BAG IVPB ONE (04:32)
[2025-02-19] MEDS ORDERED: NALOXONE 0.4 MG/ML 1 ML VIAL IV PRN (04:34)
[2025-02-19] MEDS: MAGNESIUM SULFATE-D5W PMX 1 GM in DEXTROSE/WATER 1 100ML.BAG IVPB ONE (05:16)
[2025-02-19 05:26] LABS: African American GFR (CKD) 70 (>60 ml/min/1.73 sqM); Anion Gap 9 mmol/L; Blood Urea Nitrogen 26 mg/dL (9-20); Carbon Dioxide 26 mmol/L (22-30); Chloride 101 mmol/L (98-107); Glucose 110 mg/dL (74-99); Magnesium 1.5 mg/dL (1.6-2.3); Non-African American GFR(CKD) 61 (>60 ml/min/1.73 sqM); Phosphorus 2.4 mg/dL (2.5-4.5); Potassium 3.2 mmol/L (3.5-5.1); Sodium 136 mmol/L (137-145)
[2025-02-19 06:16] LABS: Calcium 5.3 mg/dL (8.4-10.2)
[2025-02-19 07:59] LABS: Glucose,Whole Blood 212 mg/dL (70-110)
[2025-02-19] MEDS: POTASSIUM CHLORIDE 10 MEQ in WATER FOR INJECTION 1 100ML.BAG IVPB SCH (08:22)
[2025-02-19] MEDS ORDERED: DEXTROSE 50% SYRINGE 50 ML IVP PRN ×2 (09:56)
[2025-02-19] MEDS ORDERED: ALBUTEROL NEBULIZED 2.5 MG/3 ML INHALATION PRN (10:11)
[2025-02-19] MEDS: traMADol 50 MG TAB PO PRN (10:46)
[2025-02-19] MEDS: ISOSORBIDE MONONITRATE ER 30 MG TAB.ER.24H PO SCH (10:47)
[2025-02-19] MEDS: LEVOTHYROXINE 50 MCG TAB PO SCH (10:47)
[2025-02-19] MEDS: ACETAMINOPHEN TAB 325 MG TAB PO PRN (10:48)
[2025-02-19] MEDS: DOCUSATE 100 MG CAP PO SCH (10:51)
[2025-02-19] MEDS: FLUDROCORTISONE 0.1 MG TAB PO SCH (10:55)
[2025-02-19] MEDS: ASPIRIN 81 MG PO SCH (10:59)
[2025-02-19] MEDS: METOPROLOL TARTRATE 50 MG TAB PO SCH (10:59)
[2025-02-19] MEDS: PANTOPRAZOLE 40 MG TABLET PO SCH (10:59)
[2025-02-19] MEDS: TAMSULOSIN 0.4 MG CAP.ER.24H PO SCH (10:59)
[2025-02-19] MEDS: CLOPIDOGREL 75 MG TAB PO SCH (10:59)
[2025-02-19] MEDS: FERROUS SULFATE 325 MG TAB PO SCH (11:03)
--- NOTE | 2025-02-19 11:38 | P.NPCON ---
History of Present Illness - History of Present Illness Patient is a 70-year-old male with history of hypertension, BPH, type 2 diabetes and Parkinson's disease. He is admitted to the hospital with complaints of pain in his hands associated with weakness and numbness. Patient states that he dropped things because he could not grasp properly. He also had trouble opening his medication bottles. He did feel weak and therefore came in to the hospital. No new medications started recently Serum calcium was 5.4 with ionized calcium at 3.1. Albumin was 3.0 No previous history of hypocalcemia previous calcium was 9.6 in 2022. Patient received calcium gluconate in the ER. He states he is feeling better Past Medical History Past Medical History: Coronary Artery Disease (CAD), Heart Failure, COPD, Diabetes Mellitus, GERD/Reflux, Hyperlipidemia, Hypertension, Myocardial Infarction ([place]), Neurologic Disorder, Osteoarthritis (OA), Prostate Disorder, Thyroid Disorder Additional Past Medical History / Comment(s): early parkinson's, has insulin pump Last Myocardial Infarction Date:: April 2017 History of Any Multi-Drug Resistant Organisms: None Reported Past Surgical History: AICD, Coronary Bypass/CABG, Hernia Repair, Joint Replacement, Orthopedic Surgery, Prostate Surgery Additional Past Surgical History / Comment(s): REPAIR OF DIAPHRAGM HOLE ([facility] HIATAL HERNIA REPAIRED. Cataract surgery, bilateral knee replacement, penile implant, acid reflux surgery, quadruple bypass 1994, prostate surgery, stomach and small intestine surgery Past Anesthesia/Blood Transfusion Reactions: No Reported Reaction Type of Cardiac Device: AICD Device Placement Date:: 2016 Past Psychological History: No Psychological Hx Reported Smoking Status: Former smoker Past Alcohol Use History: None Reported Additional Past Alcohol Use History / Comment(s): quit smoking 15 years ago; advised no alcohol 24 hrs prior to proc. Past Drug Use History: None Reported Additional Drug Use History / Comment(s): patient states he smoked marijuana in college but not currently. - Past Family History Mother Family Medical History: Cancer Father Family Medical History: Cancer Brother(s) Family Medical History: Cancer Medications and Allergies Home Medications Medication Instructions Recorded Confirmed Type Aspirin [Adult Low Dose Aspirin EC] 81 mg PO DAILY 12/23/20 02/19/25 History Atorvastatin [Lipitor] 20 mg PO HS 12/23/20 02/19/25 History Carbidopa-Levodopa 25-100 mg 1 tab PO QID 12/23/20 02/19/25 History [Sinemet 25-100 mg] Cholecalciferol (Vitamin D3) 125 mcg PO DAILY 12/23/20 02/19/25 History [Vitamin D3 (5000 Iu)] Clopidogrel Bisulfate [Plavix] 75 mg PO DAILY 12/23/20 02/19/25 History Fludrocortisone [Florinef] 0.05 mg PO BID 12/23/20 02/19/25 History Furosemide [Lasix] 20 mg PO DAILY 12/23/20 02/19/25 History Insulin Aspart (For Pump) [NovoLOG 0.01 unit SQ-PUMP CONTINUOUS 12/23/20 02/19/25 History (For Pump)] Isosorbide Mononitrate [Isosorbide 30 mg PO DAILY 12/23/20 02/19/25 History Mononitrate ER] Magnesium Oxide 800 mg PO BID 12/23/20 02/19/25 History Metoprolol Tartrate [Lopressor] 50 mg PO BID 12/23/20 02/19/25 History Potassium Chloride [Klor-Con M10] 20 meq PO BID 12/23/20 02/19/25 History Tamsulosin [Flomax] 0.4 mg PO DAILY 12/23/20 02/19/25 History lisinopriL [Zestril] 2.5 mg PO DAILY 12/23/20 02/19/25 History rOPINIRole HCL [Requip] 2 mg PO DAILY 12/23/20 02/19/25 History Docusate [Colace] 100 mg PO BID #60 capsule 06/16/22 02/19/25 Rx levETIRAcetam [Keppra] 1,000 mg PO HS 11/24/22 02/19/25 History Albuterol Inhaler [Ventolin Hfa 2 puff INHALATION RT-Q4H PRN 11/17/24 02/19/25 History Inhaler] Ferrous Sulfate [Iron (65 MG 325 mg PO DAILY 11/17/24 02/19/25 History Elemental)] Levothyroxine Sodium [Synthroid] 50 mcg PO DAILY 11/17/24 02/19/25 History Zaleplon [Sonata] 5 mg PO HS 11/17/24 02/19/25 History traMADol HCL 50 mg PO BID PRN 11/17/24 02/19/25 History Gabapentin 600 mg PO TID 02/19/25 02/19/25 History Nitroglycerin Sl Tabs [Nitrostat] 0.4 mg SUBLINGUAL Q5M PRN 02/19/25 02/19/25 History Pantoprazole Sodium [Protonix] 20 mg PO DAILY 02/19/25 02/19/25 History Allergies Allergy/AdvReac Type Severity Reaction Status Date / Time No Known Allergies Allergy Verified 02/19/25 09:54 Physical Exam Vitals: Vital Signs Temp Pulse Pulse Resp BP BP Pulse Ox 02/19/25 07:53 98.4 F 77 17 115/64 97 02/19/25 06:19 83 17 114/64 94 L 02/19/25 04:33 99 17 115/74 93 L 02/19/25 02:11 98.2 F 89 18 128/67 97 Intake and Output 02/18/25 02/19/25 02/19/25 22:59 06:59 14:59 Other: # Bowel Movements 1 Weight 67.132 kg 67.132 kg Patient is awake, comfortable, no acute distress Examination of the heart S1 and S2 Examination of the lungs bilateral breath sounds are heard Abdomen is soft nontender Examination lower extremities shows no significant edema [employer] exam grossly intact Results - Lab Results Most recent lab results Calcium 5.3 mg/dL (8.4-10.2) L* 02/19/25 04:18 Phosphorus 2.4 mg/dL (2.5-4.5) L 02/19/25 04:18 Magnesium 1.5 mg/dL (1.6-2.3) L 02/19/25 04:18 02/19/25 03:05 02/19/25 04:18 Assessment and Plan Assessment: 1. Hypocalcemia, rule out nutritional vitamin D deficiency. Check PTH levels to rule out hypoparathyroidism. Magnesium level was slightly low at 1.5 2. Hypokalemia secondary to diuretics 3. Hypomagnesemia most likely associated with use of proton pump inhibitors and secondary to diuretics 4. Hypertension 5. Type 2 diabetes maintained on insulin Plan: Check vitamin D level Check PTH level Maintain calcium on calcium supplementation Replace potassium and magnesium Repeat labs in a.m. Thank you for the consultation. We will continue to follow the patient with you during his hospitalization
[2025-02-19 12:00] LABS: Glucose,Whole Blood 390 mg/dL (70-110)
--- NOTE | 2025-02-19 12:45 | P.HPIM ---
History of Present Illness H&P Date: 02/19/25 This is a pleasant 70-year-old male with medical history of coronary artery disease with prior bypass grafting in 1994, heart failure status post AICD, COPD, diabetes mellitus, hypertension, hyperlipidemia, hypothyroidism, acid reflux, early Parkinson's. Patient is diabetic maintained on insulin pump. Patient comes into the hospital secondary to complaints of bilateral hand and feet pain/numbness ongoing over the last couple days that have a worsening in nature. Additionally he reports right upper extremity weakness that began on Sunday. He is also having trouble ambulating. He has been very shaky having a difficult time opening his pill bottles and has been spilling his drinks due to worsening tremors. He has not have any chest pain or shortness of breath he denies any recent illness. He reports no speech or swallowing abnormalities. His grandmother has history of massive stroke. He lives at home by himself and usually gets around fine. Denies any alcohol, tobacco, or illicit substance use. His insulin pump was on but fell off while in the triage. EKG reveals atrial fibrillation with heart rate of 87. Initial blood work reveals a white blood cell count of 13.83, hemoglobin 10.5, BUN of 25 creatinine 1.24, calcium of 5.4, magnesium 1.5. Patient received IV calcium magnesium and potassium supplementation. He was admitted to the hospital for the hypocalcemia with nephrology consultation. REVIEW OF SYSTEMS: CONSTITUTIONAL: No fever, no malaise, no fatigue. HEENT: No recent visual problems or hearing problems. Denied any sore throat. CARDIOVASCULAR: No chest pain, orthopnea, PND, no palpitations, no syncope. PULMONARY: No shortness of breath, no cough, no hemoptysis. GASTROINTESTINAL: No diarrhea, no nausea, no vomiting, no abdominal pain. NEUROLOGICAL: No headaches, no weakness, no numbness. HEMATOLOGICAL: Denies any bleeding or petechiae. GENITOURINARY: Denies any burning micturition, frequency, or urgency. MUSCULOSKELETAL/RHEUMATOLOGICAL: Denies any joint pain, swelling, or any muscle pain. Reports right upper extremity weakness. ENDOCRINE: Denies any polyuria or polydipsia. The rest of the 14-point review of systems is negative. PHYSICAL EXAMINATION: GENERAL: The patient is alert and oriented x3, not in any acute distress. Well developed, well nourished. HEENT: Pupils are round and equally reacting to light. EOMI. No scleral icterus. No conjunctival pallor. Normocephalic, atraumatic. No pharyngeal erythema. No thyromegaly. CARDIOVASCULAR: S1 and S2 present. No murmurs, rubs, or gallops. PULMONARY: Chest is clear to auscultation, no wheezing or crackles. ABDOMEN: Soft, nontender, nondistended, normoactive bowel sounds. No palpable organomegaly. MUSCULOSKELETAL: No joint swelling or deformity. EXTREMITIES: No cyanosis, clubbing, or pedal edema. RUE 3/5 strength. NEUROLOGICAL: Gross neurological examination did not reveal any focal deficits. SKIN: No rashes. Assessment Right upper extremity weakness and parasthesias rule out acute ischemic stroke Hypocalcemia Macrocytic anemia Diabetes Mellitus insulin dependent with hyperglycemia Hypokalemia Hypomagnesemia COPD stable Hypertension Hyperlipidemia Parkinson's disorder Hypothyroidism Gastroesophageal reflux Heart failure with AICD Hx coronary artery disease with CABG in 1994 Chronic pain GI prophylaxis: protonix DVT prophylaxis: Lovenox Full Code Plan Brain CT without contrast ordered and consult neurology Check B12 and Folate level Check lipid panel Nephrology on consultation for the hypocalcemia Insulin pump is currently discontinued Patient is on sliding scale insulin with ACHS accuchecks Add lantus daily with further adjustments to be made if patient remains hyperglycemia Home medications have been reordered as appropriate including aspirin 81 mg daily, plavix 75 mg daily and atorvastatin 20 mg HS. Check TSH, A1C Supplement electrolytes PT/OT consultation The impression and plan of care has been dictated by Halley Sneed Nurse Practitioner as directed. Dr. Craig MD I have performed a history and physical examination and medical decision making of this patient, discussed the same with the dictator, and agree with the dictators assessment and plan as written, documented as a scribe. Based on total visit time, I have performed more than 50% of this visit. Past Medical History Past Medical History: Coronary Artery Disease (CAD), Heart Failure, COPD, Diabetes Mellitus, GERD/Reflux, Hyperlipidemia, Hypertension, Myocardial Infarction ([place]), Neurologic Disorder, Osteoarthritis (OA), Prostate Disorder, Thyroid Disorder Additional Past Medical History / Comment(s): early parkinson's, has insulin pump Last Myocardial Infarction Date:: April 2017 History of Any Multi-Drug Resistant Organisms: None Reported Past Surgical History: AICD, Coronary Bypass/CABG, Hernia Repair, Joint Rep lacement, Orthopedic Surgery, Prostate Surgery Additional Past Surgical History / Comment(s): REPAIR OF DIAPHRAGM HOLE ([facility]). HIATAL HERNIA REPAIRED. Cataract surgery, bilateral knee replacement, penile implant, acid reflux surgery, quadruple bypass 1994, prostate surgery, stomach and small intestine surgery Past Anesthesia/Blood Transfusion Reactions: No Reported Reaction Type of Cardiac Device: AICD Device Placement Date:: 2016 Past Psychological History: No Psychological Hx Reported Smoking Status: Former smoker Past Alcohol Use History: None Reported Additional Past Alcohol Use History / Comment(s): quit smoking 15 years ago; advised no alcohol 24 hrs prior to proc. Past Drug Use History: None Reported Additional Drug Use History / Comment(s): patient states he smoked marijuana in college but not currently. - Past Family History Mother Family Medical History: Cancer Father Family Medical History: Cancer Brother(s) Family Medical History: Cancer Medications and Allergies Home Medications Medication Instructions Recorded Confirmed Type Aspirin [Adult Low Dose Aspirin EC] 81 mg PO DAILY 12/23/20 02/19/25 History Atorvastatin [Lipitor] 20 mg PO HS 12/23/20 02/19/25 History Carbidopa-Levodopa 25-100 mg 1 tab PO QID 12/23/20 02/19/25 History [Sinemet 25-100 mg] Cholecalciferol (Vitamin D3) 125 mcg PO DAILY 12/23/20 02/19/25 History [Vitamin D3 (5000 Iu)] Clopidogrel Bisulfate [Plavix] 75 mg PO DAILY 12/23/20 02/19/25 History Fludrocortisone [Florinef] 0.05 mg PO BID 12/23/20 02/19/25 History Furosemide [Lasix] 20 mg PO DAILY 12/23/20 02/19/25 History Insulin Aspart (For Pump) [NovoLOG 0.01 unit SQ-PUMP CONTINUOUS 12/23/2009/03 History (For Pump)] Isosorbide Mononitrate [Isosorbide 30 mg PO DAILY 12/23/20 02/19/25 History Mononitrate ER] Magnesium Oxide 800 mg PO BID 12/23/20 02/19/25 History Metoprolol Tartrate [Lopressor] 50 mg PO BID 12/23/20 02/19/25 History Potassium Chloride [Klor-Con M10] 20 meq PO BID 12/23/20 02/19/25 History Tamsulosin [Flomax] 0.4 mg PO DAILY 12/23/20 02/19/25 History lisinopriL [Zestril] 2.5 mg PO DAILY 12/23/20 02/19/25 History rOPINIRole HCL [Requip] 2 mg PO DAILY 12/23/20 02/19/25 History Docusate [Colace] 100 mg PO BID #60 capsule 06/16/22 02/19/25 Rx levETIRAcetam [Keppra] 1,000 mg PO HS 11/24/22 02/19/25 History Albuterol Inhaler [Ventolin Hfa 2 puff INHALATION RT-Q4H PRN 11/17/24 02/19/25 History Inhaler] Ferrous Sulfate [Iron (65 MG 325 mg PO DAILY 11/17/24 02/19/25 History Elemental)] Levothyroxine Sodium [Synthroid] 50 mcg PO DAILY 11/17/24 02/19/25 History Zaleplon [Sonata] 5 mg PO HS 11/17/24 02/19/25 History traMADol HCL 50 mg PO BID PRN 11/17/24 02/19/25 History Gabapentin 600 mg PO TID 02/19/25 02/19/25 History Nitroglycerin Sl Tabs [Nitrostat] 0.4 mg SUBLINGUAL Q5M PRN 02/19/25 02/19/25 History Pantoprazole Sodium [Protonix] 20 mg PO DAILY 02/19/25 02/19/25 History Allergies Allergy/AdvReac Type Severity Reaction Status Date / Time No Known Allergies Allergy Verified 02/19/25 09:54 Physical Exam Vitals: Vital Signs Temp Pulse Pulse Resp BP BP Pulse Ox 02/19/25 07:53 98.4 F 77 17 115/64 97 02/19/25 06:19 83 17 114/64 94 L 02/19/25 04:33 99 17 115/74 93 L 02/19/25 02:11 98.2 F 89 18 128/67 97 Intake and Output 02/18/25 02/19/25 02/19/25 22:59 06:59 14:59 Other: Weight 67.132 kg 67.132 kg Results CBC & Chem 7: 02/19/25 03:05 02/19/25 04:18 Labs: Abnormal Lab Results - Last 24 Hours (Table) 02/19/25 02/19/25 02/19/25 Range/Units 03:05 03:05 04:18 WBC 13.83 H (4.50-10.00) 10*3/uL RBC 2.97 L (4.40-5.60) 10*6/uL Hgb 10.5 L (13.0-17.0) g/dL Hct 31.3 L (39.6-50.0) % MCV 105.4 H (80.0-97.0) fL MCH 35.4 H (27.0-32.0) pg Plt Count 115 L (140-440) 10*3/uL Immature Gran # 0.08 H (0.00-0.04) 10*3/uL Neutrophils # 11.46 H (1.80-7.70) 10*3/uL Lymphocytes # 0.85 L (0.90-5.00) 10*3/uL Monocytes # 1.40 H (0.20-1.00) 10*3/uL Eosinophils # 0.01 L (0.04-0.35) 10*3/uL Sodium (137-145) mmol/L Potassium (3.5-5.1) mmol/L BUN 25 H (9-20) mg/dL Glucose 106 H (74-99) mg/dL POC Glucose (mg/dL) (70-110) mg/dL Calcium 5.4 L* (8.4-10.2) mg/dL Ionized Calcium Bharat 3.1 L* (4.5-5.3) mg/dL Phosphorus (2.5-4.5) mg/dL Magnesium 1.5 L (1.6-2.3) mg/dL Total Protein 5.7 L (6.3-8.2) g/dL Albumin 3.0 L (3.5-5.0) g/dL 02/19/25 02/19/25 Range/Units 04:18 07:56 WBC (4.50-10.00) 10*3/uL RBC (4.40-5.60) 10*6/uL Hgb (13.0-17.0) g/dL Hct (39.6-50.0) % MCV (80.0-97.0) fL MCH (27.0-32.0) pg Plt Count (140-440) 10*3/uL Immature Gran # (0.00-0.04) 10*3/uL Neutrophils # (1.80-7.70) 10*3/uL Lymphocytes # (0.90-5.00) 10*3/uL Monocytes # (0.20-1.00) 10*3/uL Eosinophils # (0.04-0.35) 10*3/uL Sodium 136 L (137-145) mmol/L Potassium 3.2 L (3.5-5.1) mmol/L BUN 26 H (9-20) mg/dL Glucose 110 H (74-99) mg/dL POC Glucose (mg/dL) 212 H (70-110) mg/dL Calcium 5.3 L* (8.4-10.2) mg/dL Ionized Calcium Bharat (4.5-5.3) mg/dL Phosphorus 2.4 L (2.5-4.5) mg/dL Magnesium 1.5 L (1.6-2.3) mg/dL Total Protein (6.3-8.2) g/dL Albumin (3.5-5.0) g/dL Thrombosis Risk Factor Assmnt - Choose All That Apply Each Risk Factor Represents 2 Points: Age 61-74 years Thrombosis Risk Factor Assessment Total Risk Factor Score: 2 Thrombosis Risk Factor Assessment Level: Low Risk Assessment and Plan Time with Patient: Greater than 30
[2025-02-19] MEDS: CARBIDOPA-LEVODOPA 25-100 MG 1 EACH TAB PO SCH (12:53)
[2025-02-19] MEDS: INSULIN LISPRO (HumaLOG) 100 UNIT/ML 10 mL VL SQ SCH (13:04)
[2025-02-19] MEDS: ENOXAPARIN 40 MG/0.4 ML SYRINGE SQ SCH (13:07)
--- NOTE | 2025-02-19 13:34 | CT ---
EXAMINATION TYPE: CT brain wo con DATE OF EXAM: 02/19/2025 COMPARISON: None CLINICAL INDICATION: Male, 70 years old with history of RUE weakness; PHH, weakness, ams CT DLP: 1201 mGycm Automated exposure control for dose reduction was used. Findings: The ventricles, basal cisterns and sulci over convexities are moderately enlarged consistent with mod erate generalized atrophy. There is no abnormal density throughout the brain parenchyma. There is no mass effect or shift of midline structures. There is no acute intra or extra-axial hemorrhage. The posterior fossa including the brainstem, fourth ventricle and cerebellopontine angles appear jazmín sly normal. The intraorbital contents appear normal symmetric Visualized paranasal sinuses and mastoid air cells are well aerated. Calvarium is intact. IMPRESSION: 1. Moderate generalized atrophy.. 2. No acute bleed or mass effect. [facility], , 02/19/2025 1:32 PM
[2025-02-19] MEDS: INSULIN GLARGINE (LANTUS) 100 UNIT/ML SYR SQ SCH (13:45)
[2025-02-19 17:21] LABS: Glucose,Whole Blood 419 mg/dL (70-110)
[2025-02-19] MEDS: GABAPENTIN 300 MG CAP PO SCH (17:24)
[2025-02-19] MEDS: INSULIN LISPRO (HumaLOG) 100 UNIT/ML 10 mL VL SQ ONE (18:30)
[2025-02-19 19:58] LABS: Glucose,Whole Blood 232 mg/dL (70-110)
[2025-02-19] MEDS: MAGNESIUM OXIDE 400 MG TAB PO SCH (21:18)
[2025-02-19] MEDS: levETIRAcetam 500 MG TAB PO SCH (21:19)
[2025-02-19] MEDS: ATORVASTATIN 20 MG TAB PO SCH (21:19)
[2025-02-19] MEDS: CALCIUM CARBONATE 500 MG CHEWABLE PO SCH (21:20)
[2025-02-19] MEDS: ZOLPIDEM 5 MG TAB PO PRN (21:22)
[2025-02-20 06:58] LABS: Glucose,Whole Blood 79 mg/dL (70-110)
--- NOTE | 2025-02-20 08:08 | US ---
EXAMINATION TYPE: US venous doppler duplex UE RT DATE OF EXAM: 02/20/2025 COMPARISON: NONE CLINICAL INDICATION: Male, 70 years old with history of RUE swelling and pain; Swelling to right hand TECHNIQUE: Grayscale, color Doppler and spectral Doppler imaging of the upper extremity. SIDE PERFORMED: Right VESSELS IMAGED: IJV Subclavian Vein Axilla Vein Brachial Vein(s) Radial Paired Veins Ulnar Paired Veins Cephalic Vein* Basilic Vein* (*superficial vessels) FINDINGS: Right Arm: Negative for DVT Grayscale, color doppler, spectral doppler imaging performed of the deep veins of the right upper ext remity. IMPRESSION: 1 right upper extremity ultrasound venous spondylosis [facility], , 02/20/2025 8:05 AM
[2025-02-20 08:25] LABS: Chol/HDL Ratio 1.78 Ratio; LDL Cholesterol,Calculated 19.6 mg/dL (0.0-131.0); Magnesium 1.8 mg/dL (1.5-2.4)
[2025-02-20 08:30] LABS: Blood Urea Nitrogen 35.7 mg/dL (9.0-27.0); Carbon Dioxide 22.2 mmol/L (21.6-31.8); Chloride 106 mmol/L (96-109); Glucose 77 mg/dL (70-110); Potassium 3.7 mmol/L (3.5-5.5); Sodium 139 mmol/L (135-145)
[2025-02-20 08:40] LABS: HCT 27.9 % (39.6-50.0); HGB 8.8 g/dL (13.0-17.0); MCH 34.8 pg (27.0-32.0); MCHC 31.5 g/dL (32.0-37.0); MCV 110.3 FL (80.0-97.0); Mean Platelet Volume 12.5 FL (9.5-12.2); NRBC Per 100 WBC 0 X 10*3/uL (0.00-0.01); Platelet Count 117 X 10*3/uL (140-440); RBC 2.53 X 10*6/uL (4.40-5.60); WBC 9.17 X 10*3/uL (4.50-10.00)
[2025-02-20] MEDS: CHOLECALCIFEROL 125 MCG (5000 IU) TABLET PO SCH (09:25)
[2025-02-20] MEDS: FUROSEMIDE 20 MG TAB PO SCH (09:25)
[2025-02-20] MEDS ORDERED: Magnesium Replacement Protocol 1 EACH MISC MISCELLANE PRN (10:21)
[2025-02-20 10:40] LABS: Basophils # (A) 0.04 X 10*3/uL (0.00-0.10); Basophils % (A) 0.4 %; Eosinophils % (A) 1.1 %; Lymphocytes # (A) 1.35 X 10*3/uL (0.90-5.00); Lymphocytes % (A) 14.7 %; Monocytes # (A) 0.89 X 10*3/uL (0.20-1.00); Monocytes % (A) 9.7 %; Neutrophils # (A) 6.76 X 10*3/uL (1.80-7.70); Neutrophils % (A) 73.8 %
[2025-02-20 10:41] LABS: Macrocytosis (M) 2+ (None Seen)
[2025-02-20 12:13] LABS: Glucose,Whole Blood 339 mg/dL (70-110)
[2025-02-20] MEDS: MAGNESIUM SULFATE-D5W PMX 1 GM in DEXTROSE/WATER 1 100ML.BAG IVPB ONE (12:27)
--- NOTE | 2025-02-20 14:12 | P.PN ---
Subjective Progress Note Date: 02/20/25 This is a pleasant 70-year-old male with medical history of coronary artery disease with prior bypass grafting in 1994, heart failure status post AICD, COPD, diabetes mellitus, hypertension, hyperlipidemia, hypothyroidism, acid reflux, early Parkinson's. Patient is diabetic maintained on insulin pump. Edu ivy comes into the hospital secondary to complaints of bilateral hand and feet pain/numbness ongoing over the last couple days that have a worsening in nature. Additionally he reports right upper extremity weakness that began on Sunday. He is also having trouble ambulating. He has been very shaky having a difficult time opening his pill bottles and has been spilling his drinks due to worsening tremors. He has not have any chest pain or shortness of breath he denies any recent illness. He reports no speech or swallowing abnormalities. His grandmother has history of massive stroke. He lives at home by himself and usually gets around fine. Denies any alcohol, tobacco, or illicit substance use. His insulin pump was on but fell off while in the triage. EKG reveals atrial fibrillation with heart rate of 87. Initial blood work reveals a white blood cell count of 13.83, hemoglobin 10.5, BUN of 25 creatinine 1.24, calcium of 5.4, magnesium 1.5. Patient received IV calcium magnesium and potassium supplementation. He was admitted to the hospital for the hypocalcemia with nephrology consultation. 02/20/2025 Patient is evaluated in follow-up in the medical floor. Patient continues to report significant right upper extremity weakness and hand numbness. A venous Doppler was negative for acute DVT. We will check cervical imaging and currently pending neurology consultation. He was able to ambulate with physical therapy in the hallway. He is having a difficult time with meals as his right upper extremity is essentially unable to hold silverware or food. His blood work today reveals a white blood cell count 9.17, hemoglobin 8.8, MCV of 110.3, platelet count of 117. His magnesium is 1.8 calcium today is 5.0, sodium 139, potassium 3.7, BUN of 35.7 creatinine of 1.7. His lipid panel is within normal limits. Vitamin B12 is 1174. Vitamin D level is low at 21 folate is 12.90 and the TSH is 0.909. Parathyroid hormone is elevated at 528. REVIEW OF SYSTEMS: CONSTITUTIONAL: No fever, no malaise, no fatigue. HEENT: No recent visual problems or hearing problems. Denied any sore throat. CARDIOVASCULAR: No chest pain, orthopnea, PND, no palpitations, no syncope. PULMONARY: No shortness of breath, no cough, no hemoptysis. GASTROINTESTINAL: No diarrhea, no nausea, no vomiting, no abdominal pain. NEUROLOGICAL: No headaches, no weakness, no numbness. Reports right upper extremity weakness and hand numbness/parasthesias. Right hand swelling PHYSICAL EXAMINATION: GENERAL: The patient is alert and oriented x3, not in any acute distress. Well developed, well nourished. HEENT: Pupils are round and equally reacting to light. EOMI. No scleral icterus. No conjunctival pallor. Normocephalic, atraumatic. No pharyngeal erythema. No thyromegaly. CARDIOVASCULAR: S1 and S2 present. No murmurs, rubs, or gallops. PULMONARY: Chest is clear to auscultation, no wheezing or crackles. ABDOMEN: Soft, nontender, nondistended, normoactive bowel sounds. No palpable organomegaly. MUSCULOSKELETAL: No joint swelling or deformity. EXTREMITIES: No cyanosis, clubbing, or pedal edema. RUE 3/5 strength. Swelling. NEUROLOGICAL: Gross neurological examination did not reveal any focal deficits. SKIN: No rashes. Assessment Right upper extremity weakness and parasthesias rule out acute ischemic stroke Bilateral lower extremity parasthesias Hypocalcemia Elevated PTH because of the hypocalcemia Macrocytic anemia Diabetes Mellitus insulin dependent with hyperglycemia Hypokalemia Hypomagnesemia COPD stable Hypertension Hyperlipidemia Parkinson's disorder Hypothyroidism Gastroesophageal reflux Heart failure with AICD Hx coronary artery disease with CABG in 1994 Chronic pain GI prophylaxis: protonix DVT prophylaxis: Lovenox Full Code Plan Pending neurology consultation Cervical Spine X-Ray ordered Nephrology on consultation for the hypocalcemia Continue calcium carbonate twice daily Calcium gluconate 2 gram IVPB ordered Supplement magnesium level Check phosphorous level today Insulin pump is currently discontinued Patient is on sliding scale insulin with ACHS accuchecks Continue lantus Home medications have been reordered as appropriate including aspirin 81 mg daily, plavix 75 mg daily and atorvastatin 20 mg HS. PT/OT consultation Repeat labs in the AM The impression and plan of care has been dictated by Halley Sneed, Nurse Practitioner as directed. Dr. Craig MD I have performed a history and physical examination and medical decision making of this patient, discussed the same with the dictator, and agree with the dictators assessment and plan as written, documented as a scribe. Based on total visit time, I have performed more than 50% of this visit. Objective - Vital Signs Vital signs: Vital Signs Temp 97.9 F 02/20/25 12:18 Pulse 67 02/20/25 12:18 Resp 16 02/20/25 12:18 BP 107/62 02/20/25 12:18 Pulse Ox 97 02/20/25 12:18 FiO2 Intake & Output 02/19/25 02/20/25 02/20/25 18:59 06:59 18:59 Intake Total 1080 300 480 Balance 1080 300 480 Weight 67.132 kg Intake: Oral 1080 300 480 Other: # Voids 0 1 # Bowel Movements 1 - Labs CBC & Chem 7: 02/20/25 05:31 02/20/25 05:31 Labs: Abnormal Lab Results - Last 24 Hours (Table) 02/19/25 02/19/25 02/19/25 Range/Units 10:40 10:41 17:17 RBC (4.40-5.60) X 10*6/uL Hgb (13.0-17.0) g/dL Hct (39.6-50.0) % MCV (80.0-97.0) FL MCH (27.0-32.0) pg MCHC (32.0-37.0) g/dL RDW (11.5-14.5) % Plt Count (140-440) X 10*3/uL MPV (9.5-12.2) FL Macrocytosis (manual) (None Seen) BUN (9.0-27.0) mg/dL Creatinine (0.6-1.5) mg/dL Est GFR (CKD-EPI) (>=60) BUN/Creatinine Ratio (12.00-20.00) Ratio POC Glucose (mg/dL) 419 H (70-110) mg/dL Hemoglobin A1c (<=6.0) % Calcium (8.7-10.3) mg/dL Vitamin B12 1174.0 H (200.0-944.0) pg/mL Vitamin D 25-Hydroxy 21.0 L (30.0-100.0) ng/mL PTH Intact 528.0 H (14.0-72.0) pg/mL 02/19/25 02/20/25 02/20/25 Range/Units 19:50 05:31 05:31 RBC (4.40-5.60) X 10*6/uL Hgb (13.0-17.0) g/dL Hct (39.6-50.0) % MCV (80.0-97.0) FL MCH (27.0-32.0) pg MCHC (32.0-37.0) g/dL RDW (11.5-14.5) % Plt Count (140-440) X 10*3/uL MPV (9.5-12.2) FL Macrocytosis (manual) (None Seen) BUN 35.7 H (9.0-27.0) mg/dL Creatinine 1.7 H (0.6-1.5) mg/dL Est GFR (CKD-EPI) 43 L (>=60) BUN/Creatinine Ratio 21.00 H (12.00-20.00) Ratio POC Glucose (mg/dL) 232 H (70-110) mg/dL Hemoglobin A1c 6.7 H (<=6.0) % Calcium 5.0 A* (8.7-10.3) mg/dL Vitamin B12 (200.0-944.0) pg/mL Vitamin D 25-Hydroxy (30.0-100.0) ng/mL PTH Intact (14.0-72.0) pg/mL 02/20/25 02/20/25 Range/Units 05:31 12:12 RBC 2.53 L (4.40-5.60) X 10*6/uL Hgb 8.8 L (13.0-17.0) g/dL Hct 27.9 L (39.6-50.0) % MCV 110.3 H (80.0-97.0) FL MCH 34.8 H (27.0-32.0) pg MCHC 31.5 L (32.0-37.0) g/dL RDW 15.0 H (11.5-14.5) % Plt Count 117 L (140-440) X 10*3/uL MPV 12.5 H (9.5-12.2) FL Macrocytosis (manual) 2+ A (None Seen) BUN (9.0-27.0) mg/dL Creatinine (0.6-1.5) mg/dL Est GFR (CKD-EPI) (>=60) BUN/Creatinine Ratio (12.00-20.00) Ratio POC Glucose (mg/dL) 339 H (70-110) mg/dL Hemoglobin A1c (<=6.0) % Calcium (8.7-10.3) mg/dL Vitamin B12 (200.0-944.0) pg/mL Vitamin D 25-Hydroxy (30.0-100.0) ng/mL PTH Intact (14.0-72.0) pg/mL Assessment and Plan Time with Patient: Less than 30
--- NOTE | 2025-02-20 15:04 | XR ---
EXAMINATION TYPE: XR cervical spine comp DATE OF EXAM: 02/20/2025 2:46 PM COMPARISON: None. CLINICAL INDICATION: Male, 70 years old with history of RUE weakness and parasthesias, pain TECHNIQUE: 3 view(s) obtained. FINDINGS: Prevertebral space is normal. Vertebral body heights are preserved. Posterior spinal lamellar line is intact. Foramina as visualized appear normal. Left foramen are poorly visualized due to incomplete r otation. Degenerative disc changes present C6-7. Remaining disc heights are preserved Follow up exams can be performed as clinically indicated. Consider MRI. IMPRESSION: 1. No acute osseous abnormality [facility], , 02/20/2025 3:02 PM
[2025-02-20] MEDS: CALCIUM GLUCONATE IN NACL 2 GM in SALINE 1 100ML.BAG IVPB ONE (15:48)
[2025-02-20 16:38] LABS: % Iron Saturation 9.6 (15.00-50.00)
[2025-02-20 16:42] LABS: Glucose,Whole Blood 154 mg/dL (70-110)
--- NOTE | 2025-02-20 17:03 | P.PN ---
Subjective Patient is seen for follow-up for hypocalcemia. Calcium remains low at 5.0 today. Vitamin D was 21 PTH appropriately elevated at 528. No cramps or twitching noted. Serum creatinine increased to 1.7 today. Objective - Vital Signs Vital signs: Vital Signs Temp 97.9 F 02/20/25 12:18 Pulse 67 02/20/25 12:18 Resp 16 02/20/25 12:18 BP 107/62 02/20/25 12:18 Pulse Ox 97 02/20/25 12:18 FiO2 Intake & Output 02/19/25 02/20/25 02/20/25 18:59 06:59 18:59 Intake Total 0450 673 6333 Output Total 400 Balance 9620 123 7371 Weight 67.132 kg Intake: Oral 9501 085 8533 Output: Post Void Residual 400 Other: # Voids 0 1 5 # Bowel Movements 1 - Exam Patient is awake, comfortable, no acute distress Examination of the heart S1 and S2 Examination of the lungs bilateral breath sounds are heard Abdomen is soft nontender Examination lower extremities shows no significant edema [employer] exam grossly intact - Labs CBC & Chem 7: 02/20/25 05:31 02/20/25 05:31 Labs: Abnormal Lab Results - Last 24 Hours (Table) 02/19/25 02/19/25 02/19/25 Range/Units 10:40 10:41 17:17 RBC (4.40-5.60) X 10*6/uL Hgb (13.0-17.0) g/dL Hct (39.6-50.0) % MCV (80.0-97.0) FL MCH (27.0-32.0) pg MCHC (32.0-37.0) g/dL RDW (11.5-14.5) % Plt Count (140-440) X 10*3/uL MPV (9.5-12.2) FL Macrocytosis (manual) (None Seen) BUN (9.0-27.0) mg/dL Creatinine (0.6-1.5) mg/dL Est GFR (CKD-EPI) (>=60) BUN/Creatinine Ratio (12.00-20.00) Ratio POC Glucose (mg/dL) 419 H (70-110) mg/dL Hemoglobin A1c (<=6.0) % Calcium (8.7-10.3) mg/dL Iron (65-175) UG/DL TIBC (228-460) UG/DL % Saturation (15.00-50.00) Transferrin (204.0-354.0) mg/dL Ferritin (22.0-322.0) ng/mL Vitamin B12 1174.0 H (200.0-944.0) pg/mL Vitamin D 25-Hydroxy 21.0 L (30.0-100.0) ng/mL PTH Intact 528.0 H (14.0-72.0) pg/mL 02/19/25 02/20/25 02/20/25 Range/Units 19:50 05:31 05:31 RBC (4.40-5.60) X 10*6/uL Hgb (13.0-17.0) g/dL Hct (39.6-50.0) % MCV (80.0-97.0) FL MCH (27.0-32.0) pg MCHC (32.0-37.0) g/dL RDW (11.5-14.5) % Plt Count (140-440) X 10*3/uL MPV (9.5-12.2) FL Macrocytosis (manual) (None Seen) BUN 35.7 H (9.0-27.0) mg/dL Creatinine 1.7 H (0.6-1.5) mg/dL Est GFR (CKD-EPI) 43 L (>=60) BUN/Creatinine Ratio 21.00 H (12.00-20.00) Ratio POC Glucose (mg/dL) 232 H (70-110) mg/dL Hemoglobin A1c 6.7 H (<=6.0) % Calcium 5.0 A* (8.7-10.3) mg/dL Iron (65-175) UG/DL TIBC (228-460) UG/DL % Saturation (15.00-50.00) Transferrin (204.0-354.0) mg/dL Ferritin (22.0-322.0) ng/mL Vitamin B12 (200.0-944.0) pg/mL Vitamin D 25-Hydroxy (30.0-100.0) ng/mL PTH Intact (14.0-72.0) pg/mL 02/20/25 02/20/25 02/20/25 Range/Units 05:31 05:31 12:12 RBC 2.53 L (4.40-5.60) X 10*6/uL Hgb 8.8 L (13.0-17.0) g/dL Hct 27.9 L (39.6-50.0) % MCV 110.3 H (80.0-97.0) FL MCH 34.8 H (27.0-32.0) pg MCHC 31.5 L (32.0-37.0) g/dL RDW 15.0 H (11.5-14.5) % Plt Count 117 L (140-440) X 10*3/uL MPV 12.5 H (9.5-12.2) FL Macrocytosis (manual) 2+ A (None Seen) BUN (9.0-27.0) mg/dL Creatinine (0.6-1.5) mg/dL Est GFR (CKD-EPI) (>=60) BUN/Creatinine Ratio (12.00-20.00) Ratio POC Glucose (mg/dL) 339 H (70-110) mg/dL Hemoglobin A1c (<=6.0) % Calcium (8.7-10.3) mg/dL Iron 12 L (65-175) UG/DL TIBC 125 L (228-460) UG/DL % Saturation 9.60 L (15.00-50.00) Transferrin 89.0 L (204.0-354.0) mg/dL Ferritin 628.0 H (22.0-322.0) ng/mL Vitamin B12 (200.0-944.0) pg/mL Vitamin D 25-Hydroxy (30.0-100.0) ng/mL PTH Intact (14.0-72.0) pg/mL 02/20/25 Range/Units 16:41 RBC (4.40-5.60) X 10*6/uL Hgb (13.0-17.0) g/dL Hct (39.6-50.0) % MCV (80.0-97.0) FL MCH (27.0-32.0) pg MCHC (32.0-37.0) g/dL RDW (11.5-14.5) % Plt Count (140-440) X 10*3/uL MPV (9.5-12.2) FL Macrocytosis (manual) (None Seen) BUN (9.0-27.0) mg/dL Creatinine (0.6-1.5) mg/dL Est GFR (CKD-EPI) (>=60) BUN/Creatinine Ratio (12.00-20.00) Ratio POC Glucose (mg/dL) 154 H (70-110) mg/dL Hemoglobin A1c (<=6.0) % Calcium (8.7-10.3) mg/dL Iron (65-175) UG/DL TIBC (228-460) UG/DL % Saturation (15.00-50.00) Transferrin (204.0-354.0) mg/dL Ferritin (22.0-322.0) ng/mL Vitamin B12 (200.0-944.0) pg/mL Vitamin D 25-Hydroxy (30.0-100.0) ng/mL PTH Intact (14.0-72.0) pg/mL Assessment and Plan Assessment: 1. Hypocalcemia, with nutritional vitamin D deficiency. PTH is elevated at 528 which is appropriate given the significant hypocalcemia. Magnesium level was slightly low at 1.5, status post replacement 2. Hypokalemia secondary to diuretics 3. Hypomagnesemia most likely associated with use of proton pump inhibitors and secondary to diuretics 4. Hypertension 5. Type 2 diabetes maintained on insulin 6. Acute kidney injury, rule out urine retention Plan: Aggressive vitamin D supplementation Add calcitriol DC Lasix Maintain calcium supplementation Repeat labs in a.m.
[2025-02-20 20:12] LABS: Glucose,Whole Blood 142 mg/dL (70-110)
[2025-02-20] MEDS: HEPARIN SODIUM,PORCINE 5,000 UNIT/ML 1 ML VIAL SQ SCH (20:27)
--- NOTE | 2025-02-20 23:29 | P.CNNES ---
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 Patient states that his symptoms started on 02/17/2025 when he woke up in the morning, with pain in the arms and shoulder going down the arms. He could not lay on the right side. His symptoms stayed like this all day on Sunday and Sunday. 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 He took tramadol twice a day but did not help. By Sunday evening, he started noticing swelling of the ankles. He noticed that he could not stand on the feet as if nothing was in the bottom of the feet. He had to walk on his heels and has to hang onto the furniture. Prior to all the symptoms, he walked normally, could take stairs and walks normally. Although today he had to use walker with physical therapy and it was a chore. Does not use any assistive device. Patient does have history of neuropathy for which he follows up with Dr. Sylvester and his next appointment is on 03/09/2025. He continues to have swelling of the ankles and feet. It is hard to walk and to put pressure on the bottom of the feet. He is unable to open medication bottle, difficulty grabbing the knife to cut. He is not able to lift his hand to drink the milk. On Sunday evening, he dropped half glass full of milk with his left hand, which is a stronger hand at this point. Patient admits to having localized neck pain in the last 2 to 3 weeks, which he rates 8-9/10. He tries Biofreeze. At present the neck pain is 3-5/10. As per EMS flowsheet, when they arrived, patient was sitting on edge of the bed and unable to ambulate and open door. Patient was noted to be alert and oriented x 4. [facility] [employer] opened the door. Patient mentioned that he has pain in both his hands, right arm and both his feet. Patient states it feels like pins and needle when he tried to stand or use his hands or lay on his right side. Patient's blood glucose was 92 mg/dL. Vitals at the scene was blood pressure 144/75, pulse rate 95 respiration 18 saturation 97%. EKG showed atrial fibrillation with aberrant conduction or ventricular premature complexes. CT head revealed moderate generalized atrophy. No acute process. I personally reviewed CT head, agree with the findings. Venous Doppler was negative for DVT right upper limb. X-ray of the cervical spine showed no acute osseous abnormality. Patient has history of type I diabetes since he was age 17. He is on insulin pump. Patient has hypertension. Patient has smoked half to 1 pack/day for 40 years, quit 10 years ago. Drinks alcohol occasionally. Home medications include Lipitor 20 mg, Florinef, metoprolol Plavix 75 mg, Requip, lisinopril, insulin Lasix, magnesium, aspirin 81 mg, Sinemet 25/100 4 times daily, Keppra 1000 mg at bedtime Sonata, tramadol 50 mg twice daily, levothyroxine, albuterol, ferrous sulfate, gabapentin, Protonix. Patient's blood test showed B12 1174, vitamin D 21, folate 12.9. Hemoglobin A1c 6.7. Calcium 5.0. Ionized calcium is low 3.1. Review of Systems All pertinent positive and negative review of systems mentioned in the HPI. Otherwise unremarkable. Past Medical History Past Medical History: Coronary Artery Disease (CAD), Heart Failure, COPD, Diabetes Mellitus, GERD/Reflux, Hyperlipidemia, Hypertension, Myocardial Infarction (CT), Neurologic Disorder, Osteoarthritis (OA), Prostate Disorder, Thyroid Disorder Additional Past Medical History / Comment(s): early parkinson's, has insulin pump Last Myocardial Infarction Date:: April 2017 History of Any Multi-Drug Resistant Organisms: None Reported Past Surgical History: AICD, Coronary Bypass/CABG, Hernia Repair, Joint Replacem ent, Orthopedic Surgery, Prostate Surgery Additional Past Surgical History / Comment(s): REPAIR OF DIAPHRAGM HOLE (. ROGERS). HIATAL HERNIA REPAIRED. Cataract surgery, bilateral knee replacement, penile implant, acid reflux surgery, quadruple bypass 1994, prostate surgery, stomach and small intestine surgery Past Anesthesia/Blood Transfusion Reactions: No Reported Reaction Type of Cardiac Device: AICD Device Placement Date:: 2016 Past Psychological History: No Psychological Hx Reported Smoking Status: Former smoker Past Alcohol Use History: None Reported Additional Past Alcohol Use History / Comment(s): quit smoking 15 years ago; advised no alcohol 24 hrs prior to proc. Past Drug Use History: None Reported Additional Drug Use History / Comment(s): patient states he smoked marijuana in college but not currently. - Past Family History Mother Family Medical History: Cancer Father Family Medical History: Cancer Brother(s) Family Medical History: Cancer Medications and Allergies Home Medications Medication Instructions Recorded Confirmed Type Aspirin [Adult Low Dose Aspirin EC] 81 mg PO DAILY 12/23/20 02/19/25 History Atorvastatin [Lipitor] 20 mg PO HS 12/23/20 02/19/25 History Carbidopa-Levodopa 25-100 mg 1 tab PO QID 12/23/20 02/19/25 History [Sinemet 25-100 mg] Cholecalciferol (Vitamin D3) 125 mcg PO DAILY 12/23/20 02/19/25 History [Vitamin D3 (5000 Iu)] Clopidogrel Bisulfate [Plavix] 75 mg PO DAILY 12/23/20 02/19/25 History Fludrocortisone [Florinef] 0.05 mg PO BID 12/23/20 02/19/25 History Furosemide [Lasix] 20 mg PO DAILY 12/23/20 02/19/25 History Insulin Aspart (For Pump) [NovoLOG 0.01 unit SQ-PUMP CONTINUOUS 12/23/20 02/19/25 History (For Pump)] Isosorbide Mononitrate [Isosorbide 30 mg PO DAILY 12/23/20 02/19/25 History Mononitrate ER] Magnesium Oxide 800 mg PO BID 12/23/20 02/19/25 History Metoprolol Tartrate [Lopressor] 50 mg PO BID 12/23/20 02/19/25 History Potassium Chloride [Klor-Con M10] 20 meq PO BID 12/23/20 02/19/25 History Tamsulosin [Flomax] 0.4 mg PO DAILY 12/23/20 02/19/25 History lisinopriL [Zestril] 2.5 mg PO DAILY 12/23/20 02/19/25 History rOPINIRole HCL [Requip] 2 mg PO DAILY 12/23/20 02/19/25 History Docusate [Colace] 100 mg PO BID #60 capsule 06/16/22 02/19/25 Rx levETIRAcetam [Keppra] 1,000 mg PO HS 11/24/22 02/19/25 History Albuterol Inhaler [Ventolin Hfa 2 puff INHALATION RT-Q4H PRN 11/17/24 02/19/25 History Inhaler] Ferrous Sulfate [Iron (65 MG 325 mg PO DAILY 11/17/24 02/19/25 History Elemental)] Levothyroxine Sodium [Synthroid] 50 mcg PO DAILY 11/17/24 02/19/25 History Zaleplon [Sonata] 5 mg PO HS 11/17/24 02/19/25 History traMADol HCL 50 mg PO BID PRN 11/17/24 02/19/25 History Gabapentin 600 mg PO TID 02/19/25 02/19/25 History Nitroglycerin Sl Tabs [Nitrostat] 0.4 mg SUBLINGUAL Q5M PRN 02/19/25 02/19/25 History Pantoprazole Sodium [Protonix] 20 mg PO DAILY 02/19/25 02/19/25 History Allergies Allergy/AdvReac Type Severity Reaction Status Date / Time No Known Allergies Allergy Verified 02/19/25 09:54 Physical Examination - Vital Signs Vital Signs: Vital Signs Temp Pulse Resp BP Pulse Ox 02/20/25 12:18 97.9 F 67 16 107/62 97 02/20/25 06:56 98.2 F 69 17 101/51 91 L 02/20/25 02:00 97.3 F L 73 16 96/52 94 L 02/19/25 21:29 94/56 Intake and Output 02/20/25 02/20/25 02/20/25 06:59 14:59 22:59 Intake Total 419 850 6537 Output Total 400 Balance 162 417 0513 Intake: Oral 059 762 7057 Output: Post Void Residual 400 Other: # Voids 1 5 Patient is an elderly male, in no acute distress. Patient is alert awake oriented to time place and person. Speech and language functions are normal. Patient can name and repeat very well. No aphasia or dysarthria. Attention, concentration and fund of knowledge is adequate. On cranial nerve examination, pupils are equal, round and reacting to light, vis ual diop are full on confrontation, with no neglect on double simultaneous stimulation. Extraocular muscles are intact with no nystagmus. Face is symmetric, tongue protrudes to the midline. Palatal elevation and sensation normal, hearing and shoulder shrug normal, facial sensation normal. On muscle strength testing, the muscle strength is (right/left) deltoid 5/5, biceps 4/5, triceps 4/5, internet sales director 4 4-/5-, wrist flexion 4/5, FDP 55. In the lower limbs, hip flexion, ankle dorsiflexion and toe extension are all 5/5. Deep tendon reflexes are symmetric trace to 1 at the biceps, absent brach ioradialis, absent knees and absent ankles bilaterally. Sensory to touch is equal with no neglect on double simultaneous stimulation. Cerebellar function showed mild ataxia for [id number] testing only on the right side. Patient has mild ataxia for [id number] testing bilaterally. Tone is normal and bulk of muscles overall decreased. Gait deferred.. On general examination, there is no carotid bruit or murmur, S1-S2 audible. Chest is clear on consultation. Abdomen is soft nontender. No organomegaly, bowel sounds present. Peripheral pulses are present. No peripheral edema. Results - Laboratory Findings CBC and BMP: 02/20/25 05:31 02/20/25 05:31 Abnormal Lab Findings: Abnormal Labs 02/19/25 02/19/25 02/19/25 03:05 03:05 04:18 WBC 13.83 H RBC 2.97 L Hgb 10.5 L Hct 31.3 L MCV 105.4 H MCH 35.4 H MCHC RDW Plt Count 115 L MPV Immature Gran # 0.08 H Neutrophils # 11.46 H Lymphocytes # 0.85 L Monocytes # 1.40 H Eosinophils # 0.01 L Macrocytosis (manual) Sodium Potassium BUN 25 H Creatinine Est GFR (CKD-EPI) BUN/Creatinine Ratio Glucose 106 H POC Glucose (mg/dL) Hemoglobin A1c Calcium 5.4 L* Ionized Calcium Bharat 3.1 L* Phosphorus Magnesium 1.5 L Iron TIBC % Saturation Transferrin Ferritin Total Protein 5.7 L Albumin 3.0 L Vitamin B12 Vitamin D 25-Hydroxy PTH Intact 02/19/25 02/19/25 02/19/25 04:18 07:56 10:40 WBC RBC Hgb Hct MCV MCH MCHC RDW Plt Count MPV Immature Gran # Neutrophils # Lymphocytes # Monocytes # Eosinophils # Macrocytosis (manual) Sodium 136 L Potassium 3.2 L BUN 26 H Creatinine Est GFR (CKD-EPI) BUN/Creatinine Ratio Glucose 110 H POC Glucose (mg/dL) 212 H Hemoglobin A1c Calcium 5.3 L* Ionized Calcium Bharat Phosphorus 2.4 L Magnesium 1.5 L Iron TIBC % Saturation Transferrin Ferritin Total Protein Albumin Vitamin B12 1174.0 H Vitamin D 25-Hydroxy 21.0 L PTH Intact 02/19/25 02/19/25 02/19/25 10:41 10:41 11:57 WBC RBC Hgb Hct MCV MCH MCHC RDW Plt Count MPV Immature Gran # Neutrophils # Lymphocytes # Monocytes # Eosinophils # Macrocytosis (manual) Sodium Potassium BUN Creatinine Est GFR (CKD-EPI) BUN/Creatinine Ratio Glucose POC Glucose (mg/dL) 390 H Hemoglobin A1c Calcium 5.6 L* Ionized Calcium Bharta Phosphorus Magnesium Iron TIBC % Saturation Transferrin Ferritin Total Protein Albumin Vitamin B12 Vitamin D 25-Hydroxy PTH Intact 528.0 H 02/19/25 02/19/25 02/20/25 17:17 19:50 05:31 WBC RBC Hgb Hct MCV MCH MCHC RDW Plt Count MPV Immature Gran # Neutrophils # Lymphocytes # Monocytes # Eosinophils # Macrocytosis (manual) Sodium Potassium BUN Creatinine Est GFR (CKD-EPI) BUN/Creatinine Ratio Glucose POC Glucose (mg/dL) 419 H 232 H Hemoglobin A1c 6.7 H Calcium Ionized Calcium Bharat Phosphorus Magnesium Iron TIBC % Saturation Transferrin Ferritin Total Protein Albumin Vitamin B12 Vitamin D 25-Hydroxy PTH Intact 02/20/25 02/20/25 02/20/25 05:31 05:31 05:31 WBC RBC 2.53 L Hgb 8.8 L Hct 27.9 L MCV 110.3 H MCH 34.8 H MCHC 31.5 L RDW 15.0 H Plt Count 117 L MPV 12.5 H Immature Gran # Neutrophils # Lymphocytes # Monocytes # Eosinophils # Macrocytosis (manual) 2+ A Sodium Potassium BUN 35.7 H Creatinine 1.7 H Est GFR (CKD-EPI) 43 L BUN/Creatinine Ratio 21.00 H Glucose POC Glucose (mg/dL) Hemoglobin A1c Calcium 5.0 A* Ionized Calcium Bharat Phosphorus Magnesium Iron 12 L TIBC 125 L % Saturation 9.60 L Transferrin 89.0 L Ferritin 628.0 H Total Protein Albumin Vitamin B12 Vitamin D 25-Hydroxy PTH Intact 02/20/25 02/20/25 12:12 16:41 WBC RBC Hgb Hct MCV MCH MCHC RDW Plt Count MPV Immature Gran # Neutrophils # Lymphocytes # Monocytes # Eosinophils # Macrocytosis (manual) Sodium Potassium BUN Creatinine Est GFR (CKD-EPI) BUN/Creatinine Ratio Glucose POC Glucose (mg/dL) 339 H 154 H Hemoglobin A1c Calcium Ionized Calcium Bharat Phosphorus Magnesium Iron TIBC % Saturation Transferrin Ferritin Total Protein Albumin Vitamin B12 Vitamin D 25-Hydroxy PTH Intact Assessment and Plan Assessment: * 70-year-old male with longstanding history of type 1 diabetes, with diabetic neuropathy has presented with rapidly progressive painful weakness of right upper extremity. Overall pattern suggestive of diabetic plexopathy. Patient has milder symptoms in the left upper extremity as well, but the strength appears well-preserved. * Diabetic neuropathy, slightly worse. However the strength in the lower limbs are normal. * Hypocalcemia, uncertain if contributing to the weakness. * Chronic renal disease * Coronary artery disease * Hypertension * Hyperlipidemia * Reported history of Parkinson's * Presence of defibrillator * Ex tobacco use Plan: * Patient cannot have MRI of the cervical spine/brachial plexus because of presence of defibrillator. * Lumbar puncture was considered, but patient is on Plavix. * We will perform detailed blood tests as per order section. * Patient may benefit from course of high-dose steroids versus IVIG. * We will await results of blood tests. * B12 1174, folate 12.90, TSH 0.909, Hemoglobin A1c 6.7 * Dr. Caceres to cover neurology service over the weekend. * Thank you for the consult. Time with Patient: Greater than 30
[2025-02-21 07:07] LABS: Glucose,Whole Blood 91 mg/dL (70-110)
[2025-02-21 07:38] LABS: Basophils # (A) 0.02 10*3/uL (0.00-0.10); Basophils % (A) 0.3 %; Eosinophils # (A) 0.32 10*3/uL (0.04-0.35); Eosinophils % (A) 4.3 %; HCT 28.8 % (39.6-50.0); HGB 9.2 g/dL (13.0-17.0); Immature Platelet Fraction 3.4 % (1.1-6.1); Lymphocytes # (A) 1.04 10*3/uL (0.90-5.00); Lymphocytes % (A) 13.9 %; MCHC 31.9 g/dL (32.0-37.0); MCV 109.5 fL (80.0-97.0); Mean Platelet Volume 11.3 fL (9.5-12.2); Monocytes # (A) 0.57 10*3/uL (0.20-1.00); Monocytes % (A) 7.6 %; Neutrophils # (A) 5.48 10*3/uL (1.80-7.70); Neutrophils % (A) 73.5 %; Platelet Count 140 10*3/uL (140-440); RBC 2.63 10*6/uL (4.40-5.60); RDW 14.7 % (11.5-14.5); WBC 7.46 10*3/uL (4.50-10.00)
[2025-02-21 08:03] LABS: African American GFR (CKD) 49 (>60 ml/min/1.73 sqM); Anion Gap 6 mmol/L; Blood Urea Nitrogen 38 mg/dL (9-20); Carbon Dioxide 25 mmol/L (22-30); Chloride 106 mmol/L (98-107); Glucose 81 mg/dL (74-99); Magnesium 1.9 mg/dL (1.6-2.3); Non-African American GFR(CKD) 42 (>60 ml/min/1.73 sqM); Potassium 3.7 mmol/L (3.5-5.1); Sodium 137 mmol/L (137-145)
[2025-02-21 08:28] LABS: Calcium 5.3 mg/dL (8.4-10.2)
--- NOTE | 2025-02-21 09:22 | P.PN ---
Subjective Progress Note Date: 02/21/25 Patient is seen for follow-up for hypocalcemia. Calcium remains low at 5.3 today. Vitamin D was 21 PTH appropriately elevated at 528. No cramps or twitching noted. c/o right arm swelling since he got Prolia injection a week ago, no other complaints Serum creatinine improved to 1.6. Objective - Vital Signs Vital signs: Vital Signs Temp 98.2 F 02/21/25 06:55 Pulse 69 02/21/25 06:55 Resp 16 02/21/25 06:55 BP 112/61 02/21/25 06:55 Pulse Ox 97 02/21/25 06:55 FiO2 Intake & Output 02/20/25 02/21/25 02/21/25 18:59 06:59 18:59 Intake Total 2280 240 Output Total 400 Balance 1880 240 Intake: Oral 2280 240 Output: Post Void Residual 400 Other: # Voids 5 2 - Exam Patient is awake, comfortable, no acute distress Examination of the heart S1 and S2 Examination of the lungs bilateral breath sounds are heard Abdomen is soft nontender Examination lower extremities shows no significant edema, right UE edema , peripheral IV noted 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 - Labs CBC & Chem 7: 02/21/25 06:56 02/21/25 06:56 Labs: Abnormal Lab Results - Last 24 Hours (Table) 02/20/25 02/20/25 02/20/25 Range/Units 05:31 05:31 12:12 RBC (4.40-5.60) 10*6/uL Hgb (13.0-17.0) g/dL Hct (39.6-50.0) % MCV (80.0-97.0) fL MCH (27.0-32.0) pg MCHC (32.0-37.0) g/dL RDW (11.5-14.5) % Macrocytosis (manual) 2+ A (None Seen) BUN (9-20) mg/dL Creatinine (0.66-1.25) mg/dL POC Glucose (mg/dL) 339 H (70-110) mg/dL Calcium (8.4-10.2) mg/dL Iron 12 L (65-175) UG/DL TIBC 125 L (228-460) UG/DL % Saturation 9.60 L (15.00-50.00) Transferrin 89.0 L (204.0-354.0) mg/dL Ferritin 628.0 H (22.0-322.0) ng/mL 02/20/25 02/20/25 02/21/25 Range/Units 16:41 20:10 06:56 RBC (4.40-5.60) 10*6/uL Hgb (13.0-17.0) g/dL Hct (39.6-50.0) % MCV (80.0-97.0) fL MCH (27.0-32.0) pg MCHC (32.0-37.0) g/dL RDW (11.5-14.5) % Macrocytosis (manual) (None Seen) BUN 38 H (9-20) mg/dL Creatinine 1.63 H (0.66-1.25) mg/dL POC Glucose (mg/dL) 154 H 142 H (70-110) mg/dL Calcium 5.3 L* (8.4-10.2) mg/dL Iron (65-175) UG/DL TIBC (228-460) UG/DL % Saturation (15.00-50.00) Transferrin (204.0-354.0) mg/dL Ferritin (22.0-322.0) ng/mL 02/21/25 Range/Units 06:56 RBC 2.63 L (4.40-5.60) 10*6/uL Hgb 9.2 L (13.0-17.0) g/dL Hct 28.8 L (39.6-50.0) % MCV 109.5 H (80.0-97.0) fL MCH 35.0 H (27.0-32.0) pg MCHC 31.9 L (32.0-37.0) g/dL RDW 14.7 H (11.5-14.5) % Macrocytosis (manual) (None Seen) BUN (9-20) mg/dL Creatinine (0.66-1.25) mg/dL POC Glucose (mg/dL) (70-110) mg/dL Calcium (8.4-10.2) mg/dL Iron (65-175) UG/DL TIBC (228-460) UG/DL % Saturation (15.00-50.00) Transferrin (204.0-354.0) mg/dL Ferritin (22.0-322.0) ng/mL Assessment and Plan Assessment: 1. Hypocalcemia, with nutritional vitamin D deficiency. PTH is elevated at 528 which is appropriate given the significant hypocalcemia. Magnesium level was slightly low at 1.5, improved status post replacement 2. Hypokalemia secondary to diuretics 3. Hypomagnesemia most likely associated with use of proton pump inhibitors and secondary to diuretics 4. Hypertension 5. Type 2 diabetes maintained on insulin 6. Acute kidney injury, post void residual was 400 ml 7. Right arm edema, US ruled out DVT Plan: check US kidneys/ bladder, post void residual was 400 ml. may need urology evaluation and Davison's catheter placement if continue to retain urine. adjust Gabapentin dose to current renal function continue calcitriol continue off Lasix Maintain calcium supplementation Repeat labs in a.m.
[2025-02-21 12:20] LABS: Glucose,Whole Blood 157 mg/dL (70-110)
[2025-02-21 13:27] LABS: Immunoglobulin M 78.3 mg/dL (40.0-280.0)
[2025-02-21 13:32] LABS: Erythrocyte Sedimentation Rate 43 mm/Hr (0-20)
--- NOTE | 2025-02-21 13:59 | P.PN ---
Subjective Progress Note Date: 02/21/25 This is a pleasant 70-year-old male with medical history of coronary artery disease with prior bypass grafting in 1994, heart failure status post AICD, COPD, diabetes mellitus, hypertension, hyperlipidemia, hypothyroidism, acid reflux, early Parkinson's. Patient is diabetic maintained on insulin pump. Edu ivy comes into the hospital secondary to complaints of bilateral hand and feet pain/numbness ongoing over the last couple days that have a worsening in nature. Additionally he reports right upper extremity weakness that began on Sunday. He is also having trouble ambulating. He has been very shaky having a difficult time opening his pill bottles and has been spilling his drinks due to worsening tremors. He has not have any chest pain or shortness of breath he denies any recent illness. He reports no speech or swallowing abnormalities. His grandmother has history of massive stroke. He lives at home by himself and usually gets around fine. Denies any alcohol, tobacco, or illicit substance use. His insulin pump was on but fell off while in the triage. EKG reveals atrial fibrillation with heart rate of 87. Initial blood work reveals a white blood cell count of 13.83, hemoglobin 10.5, BUN of 25 creatinine 1.24, calcium of 5.4, magnesium 1.5. Patient received IV calcium magnesium and potassium supplementation. He was admitted to the hospital for the hypocalcemia with nephrology consultation. 02/20/2025 Patient is evaluated in follow-up in the medical floor. Patient continues to report significant right upper extremity weakness and hand numbness. A venous Doppler was negative for acute DVT. We will check cervical imaging and currently pending neurology consultation. He was able to ambulate with physical therapy in the hallway. He is having a difficult time with meals as his right upper extremity is essentially unable to hold silverware or food. His blood work today reveals a white blood cell count 9.17, hemoglobin 8.8, MCV of 110.3, platelet count of 117. His magnesium is 1.8 calcium today is 5.0, sodium 139, potassium 3.7, BUN of 35.7 creatinine of 1.7. His lipid panel is within normal limits. Vitamin B12 is 1174. Vitamin D level is low at 21 folate is 12.90 and the TSH is 0.909. Parathyroid hormone is elevated at 528. 02/21/2025 Patient is evaluated in follow-up on the medical floor. Patient continues to report right upper extremity weakness and numbness he does report that he felt this was brought on after receiving a Prolia injection last week. He was found to have urinary retention with postvoid residuals in the 400s. Patient is refusing a catheter at this time. Pending renal ultrasound. White blood cell count today 7.46, hemoglobin 9.2, MCV 109.5, BUN of 38 creatinine of 1.63 sodium level of 137. Calcium of 5.3. IgG, IgA, IgM within normal limits. ESR is elevated at 43. REVIEW OF SYSTEMS: CONSTITUTIONAL: No fever, no malaise, no fatigue. HEENT: No recent visual problems or hearing problems. Denied any sore throat. CARDIOVASCULAR: No chest pain, orthopnea, PND, no palpitations, no syncope. PULMONARY: No shortness of breath, no cough, no hemoptysis. GASTROINTESTINAL: No diarrhea, no nausea, no vomiting, no abdominal pain. NEUROLOGICAL: No headaches, no weakness, no numbness. Reports right upper extremity weakness and hand numbness/parasthesias. Right hand swelling PHYSICAL EXAMINATION: GENERAL: The patient is alert and oriented x3, not in any acute distress. Well developed, well nourished. HEENT: Pupils are round and equally reacting to light. EOMI. No scleral icterus. No conjunctival pallor. Normocephalic, atraumatic. No pharyngeal erythema. No thyromegaly. CARDIOVASCULAR: S1 and S2 present. No murmurs, rubs, or gallops. PULMONARY: Chest is clear to auscultation, no wheezing or crackles. ABDOMEN: Soft, nontender, nondistended, normoactive bowel sounds. No palpable organomegaly. MUSCULOSKELETAL: No joint swelling or deformity. EXTREMITIES: No cyanosis, clubbing, or pedal edema. RUE 3/5 strength. Swelling. NEUROLOGICAL: Gross neurological examination did not reveal any focal deficits. SKIN: No rashes. Assessment Right upper extremity weakness and parasthesias rule out acute ischemic stroke Bilateral lower extremity parasthesias Hypocalcemia Elevated PTH because of the hypocalcemia Macrocytic anemia Diabetes Mellitus insulin dependent with hyperglycemia Hypokalemia Hypomagnesemia COPD stable Hypertension Hyperlipidemia Parkinson's disorder Hypothyroidism Gastroesophageal reflux Heart failure with AICD Hx coronary artery disease with CABG in 1994 Chronic pain GI prophylaxis: protonix DVT prophylaxis: Lovenox Full Code Plan Neurology following unable to get MRI secondary to the defibrillator Nephrology on consultation for the hypocalcemia Continue calcium carbonate twice daily Calcium gluconate 2 gram IVPB ordered Supplement magnesium level Pending phosphorous Insulin pump is currently discontinued Patient is on sliding scale insulin with ACHS accuchecks Continue lantus Home medications have been reordered as appropriate including aspirin 81 mg daily, plavix 75 mg daily and atorvastatin 20 mg HS. PT/OT consultation Repeat labs in the AM The impression and plan of care has been dictated by Halley Sneed, Nurse Practitioner as directed. Dr. Craig MD I have performed a history and physical examination and medical decision making of this patient, discussed the same with the dictator, and agree with the dictators assessment and plan as written, documented as a scribe. Based on total visit time, I have performed more than 50% of this visit. Objective - Vital Signs Vital signs: Vital Signs Temp 97.8 F 02/21/25 12:26 Pulse 68 02/21/25 12:26 Resp 16 02/21/25 12:26 BP 106/59 02/21/25 12:26 Pulse Ox 97 02/21/25 12:26 FiO2 Intake & Output 02/20/25 02/21/25 02/21/25 18:59 06:59 18:59 Intake Total 2280 240 Output Total 400 Balance 1880 240 Intake: Oral 2280 240 Output: Post Void Residual 400 Other: # Voids 5 2 # Bowel Movements 1 - Labs CBC & Chem 7: 02/21/25 06:56 02/21/25 06:56 Labs: Abnormal Lab Results - Last 24 Hours (Table) 02/20/25 02/20/25 02/20/25 Range/Units 05:31 16:41 20:10 RBC (4.40-5.60) 10*6/uL Hgb (13.0-17.0) g/dL Hct (39.6-50.0) % MCV (80.0-97.0) fL MCH (27.0-32.0) pg MCHC (32.0-37.0) g/dL RDW (11.5-14.5) % ESR (0-20) mm/Hr BUN (9-20) mg/dL Creatinine (0.66-1.25) mg/dL POC Glucose (mg/dL) 154 H 142 H (70-110) mg/dL Calcium (8.4-10.2) mg/dL Iron 12 L (65-175) UG/DL TIBC 125 L (228-460) UG/DL % Saturation 9.60 L (15.00-50.00) Transferrin 89.0 L (204.0-354.0) mg/dL Ferritin 628.0 H (22.0-322.0) ng/mL 02/21/25 02/21/25 02/21/25 Range/Units 06:56 06:56 12:18 RBC 2.63 L (4.40-5.60) 10*6/uL Hgb 9.2 L (13.0-17.0) g/dL Hct 28.8 L (39.6-50.0) % MCV 109.5 H (80.0-97.0) fL MCH 35.0 H (27.0-32.0) pg MCHC 31.9 L (32.0-37.0) g/dL RDW 14.7 H (11.5-14.5) % ESR 43 H (0-20) mm/Hr BUN 38 H (9-20) mg/dL Creatinine 1.63 H (0.66-1.25) mg/dL POC Glucose (mg/dL) 157 H (70-110) mg/dL Calcium 5.3 L* (8.4-10.2) mg/dL Iron (65-175) UG/DL TIBC (228-460) UG/DL % Saturation (15.00-50.00) Transferrin (204.0-354.0) mg/dL Ferritin (22.0-322.0) ng/mL Assessment and Plan Time with Patient: Less than 30
--- NOTE | 2025-02-21 15:12 | US ---
EXAMINATION TYPE: US kidneys/renal and bladder DATE OF EXAM: 02/21/2025 COMPARISON: NONE CLINICAL INDICATION: Male, 70 years old with history of MARZENA, urinary retention; MARZENA, urinary retentio n TECHNIQUE: Grayscale imaging of the bilateral kidneys and urinary bladder: FINDINGS: EXAM MEASUREMENTS: Right Kidney: 9.8 x 4.9 x 5.1 cm Left Kidney: 10.3 x 6.0 x 4.8 cm Right Kidney: dilated renal pelvis compatible with extrarenal pelvis. anechoic lesion lower pole = 1. 5 x 1.4 x 1.3cm compatible simple appearing cyst. Left Kidney: hydronephrosis/hydroureter. anechoic lesion anteriorly = 3.6 x 1.8 x 3.4cm . Compatible with simple appearing cyst. Bladder: diverticula, septations IMPRESSION: 1. Moderate left hydronephrosis. Correlate for obstructive uropathy. 2. bilateral simple appearing cyst [facility], , 02/21/2025 3:09 PM
--- NOTE | 2025-02-21 15:23 | P.PN ---
Subjective Progress Note Date: 02/21/25 The patient is a 70-year-old male who was seen in neurologic follow-up on February 21, 2025, in collaboration with Elen Corea, via teleneurology. The patient's chart has been reviewed. He reports that his right sided symptoms were sudden in onset. He says his right arm and leg are both weak as well as painful. He reports mild improvement of his leg today. He says he was able to walk with physical therapy. He says however he was walking on his toe as opposed to his heel. He states that on the day of presentation, he was unable to stand on his feet, because of feeling as if there was nothing present to stand down. The right foot was worse than the left. The patient reports that his right arm is very weak and painful. He says he is unable to open his hand. He notes pain in his shoulder, elbow and wrist. Apparently the patient's symptoms began following his first injection of Prolia. The patient denies left-sided symptoms. Objective - Vital Signs Vital signs: Vital Signs Temp 98.2 F 02/21/25 06:55 Pulse 69 02/21/25 06:55 Resp 16 02/21/25 06:55 BP 112/61 02/21/25 06:55 Pulse Ox 97 02/21/25 06:55 FiO2 Intake & Output 02/20/25 02/21/25 02/21/25 18:59 06:59 18:59 Intake Total 2280 240 Output Total 400 Balance 1880 240 Intake: Oral 2280 240 Output: Post Void Residual 400 Other: # Voids 5 2 # Bowel Movements 1 - Exam General: The patient is reclining in the bed. He is in no acute distress. He is well-nourished. HEENT: Head is atraumatic, normocephalic. Fundus not visualized. There is no scleral icterus. Mucous membranes are moist. Extremities: There is marked edema of the right hand. Neurological examination Mental status: The patient is awake, alert and oriented x 3. His speech is clear. There is no dysarthria or aphasia. Cranial nerves: 2-12, grossly intact Motor: (Right/left) construction grip-4/5. Triceps 4/5. Biceps 5/5. Hip flexors 5/5. Ankle plantar and dorsiflexors 5/5. The patient is unable to open and extend the fingers of his right hand. Deep tendon reflexes: 2+/4+ in the bilateral upper extremities. Bilateral patellar reflexes are absent secondary to total knee replacements - Labs CBC & Chem 7: 02/21/25 06:56 02/21/25 06:56 Labs: Abnormal Lab Results - Last 24 Hours (Table) 02/20/25 02/20/25 02/20/25 Range/Units 05:31 12:12 16:41 RBC (4.40-5.60) 10*6/uL Hgb (13.0-17.0) g/dL Hct (39.6-50.0) % MCV (80.0-97.0) fL MCH (27.0-32.0) pg MCHC (32.0-37.0) g/dL RDW (11.5-14.5) % BUN (9-20) mg/dL Creatinine (0.66-1.25) mg/dL POC Glucose (mg/dL) 339 H 154 H (70-110) mg/dL Calcium (8.4-10.2) mg/dL Iron 12 L (65-175) UG/DL TIBC 125 L (228-460) UG/DL % Saturation 9.60 L (15.00-50.00) Transferrin 89.0 L (204.0-354.0) mg/dL Ferritin 628.0 H (22.0-322.0) ng/mL 02/20/25 02/21/25 02/21/25 Range/Units 20:10 06:56 06:56 RBC 2.63 L (4.40-5.60) 10*6/uL Hgb 9.2 L (13.0-17.0) g/dL Hct 28.8 L (39.6-50.0) % MCV 109.5 H (80.0-97.0) fL MCH 35.0 H (27.0-32.0) pg MCHC 31.9 L (32.0-37.0) g/dL RDW 14.7 H (11.5-14.5) % BUN 38 H (9-20) mg/dL Creatinine 1.63 H (0.66-1.25) mg/dL POC Glucose (mg/dL) 142 H (70-110) mg/dL Calcium 5.3 L* (8.4-10.2) mg/dL Iron (65-175) UG/DL TIBC (228-460) UG/DL % Saturation (15.00-50.00) Transferrin (204.0-354.0) mg/dL Ferritin (22.0-322.0) ng/mL Assessment and Plan Assessment: 70-year-old male with longstanding history of type 1 diabetes, with diabetic neuropathy has presented with rapidly progressive painful weakness of right upper extremity. Overall pattern suggestive of diabetic plexopathy. Patient has milder symptoms in the left upper extremity as well, but the strength appe ars well-preserved. * Diabetic neuropathy, slightly worse. However the strength in the lower limbs are normal. * Hypocalcemia, uncertain if contributing to the weakness. * Chronic renal disease * Coronary artery disease * Hypertension * Hyperlipidemia * Reported history of Parkinson's * Presence of defibrillator * Ex tobacco use Plan: * Patient cannot have MRI of the cervical spine/brachial plexus because of presence of defibrillator, consider ultrasound of the brachial plexus versus EMG versus CT scan of the cervical spine. * Lumbar puncture was considered, but patient is on Plavix. * We will perform detailed blood tests as per order section-sed rate is elevated at 43, Lyme titers are pending, immunoglobulin levels are normal. * Patient may benefit from course of high-dose steroids versus IVIG-will not start either treatment until Lyme titers return. * B12 1174, folate 12.90, TSH 0.909, Hemoglobin A1c 6.7 Time with Patient: Greater than 30 (40 minutes were spent caring for this patient today including, obtaining history, examining the patient, reviewing imaging, chart documentation, labs, placing orders and creating this note)
[2025-02-21] MEDS: GABAPENTIN 100 MG CAP PO SCH (16:03)
[2025-02-21] MEDS: CALCIUM GLUCONATE IN NACL 2 GM in SALINE 1 100ML.BAG IVPB ONE (16:03)
[2025-02-21 17:09] LABS: Glucose,Whole Blood 83 mg/dL (70-110)
[2025-02-21] MEDS: HYDROcodone/APAP 5-325MG 1 EACH TAB PO PRN (18:03)
[2025-02-21 20:19] LABS: Glucose,Whole Blood 126 mg/dL (70-110)
[2025-02-21 22:52] LABS: Glucose,Whole Blood 52 mg/dL (70-110)
[2025-02-21 23:33] LABS: Glucose,Whole Blood 72 mg/dL (70-110)
[2025-02-21 23:46] LABS: Glucose,Whole Blood 89 mg/dL (70-110)
[2025-02-22 04:32] LABS: Glucose,Whole Blood 217 mg/dL (70-110)
[2025-02-22 06:48] LABS: Glucose,Whole Blood 209 mg/dL (70-110)
[2025-02-22 09:32] LABS: Magnesium 1.9 mg/dL (1.5-2.4); Phosphorus 2.9 mg/dL (2.4-5.1)
[2025-02-22 09:38] LABS: BUN/Creat Ratio 23.71 Ratio (12.00-20.00); Blood Urea Nitrogen 33.2 mg/dL (9.0-27.0); Calcium 5.3 mg/dL (8.7-10.3); Carbon Dioxide 24.3 mmol/L (21.6-31.8); Chloride 105 mmol/L (96-109); Glucose 205 mg/dL (70-110); Potassium 4.1 mmol/L (3.5-5.5); Sodium 139 mmol/L (135-145)
--- NOTE | 2025-02-22 10:54 | P.PN ---
Subjective Progress Note Date: 02/22/25 Patient is seen for follow-up for hypocalcemia. no new complaints, resting in bed. Serum creatinine improved to 1.4. Objective - Vital Signs Vital signs: Vital Signs Temp 98.5 F 02/22/25 06:50 Pulse 75 02/22/25 06:50 Resp 16 02/22/25 06:50 BP 113/63 02/22/25 06:50 Pulse Ox 97 02/22/25 06:50 FiO2 Intake & Output 02/21/25 02/22/25 02/22/25 18:59 06:59 18:59 Intake Total 2019 480 Balance 2019 480 Intake: Oral 2019 480 Other: # Voids 5 2 # Bowel Movements 1 1 - Exam Patient is awake, comfortable, no acute distress Examination of the heart S1 and S2 Examination of the lungs bilateral breath sounds are heard Abdomen is soft nontender Examination lower extremities shows no significant edema, right UE edema , peripheral IV noted [employer] exam grossly intact - Labs CBC & Chem 7: 02/21/25 06:56 02/22/25 05:19 Labs: Abnormal Lab Results - Last 24 Hours (Table) 02/21/25 02/21/25 02/21/25 Range/Units 06:56 12:18 20:18 ESR 43 H (0-20) mm/Hr BUN (9.0-27.0) mg/dL Est GFR (CKD-EPI) (>=60) BUN/Creatinine Ratio (12.00-20.00) Ratio Glucose (70-110) mg/dL POC Glucose (mg/dL) 157 H 126 H (70-110) mg/dL Calcium (8.7-10.3) mg/dL 02/21/25 02/22/25 02/22/25 Range/Units 22:50 04:24 05:19 ESR (0-20) mm/Hr BUN 33.2 H (9.0-27.0) mg/dL Est GFR (CKD-EPI) 54 L (>=60) BUN/Creatinine Ratio 23.71 H (12.00-20.00) Ratio Glucose 205 H (70-110) mg/dL POC Glucose (mg/dL) 52 L 217 H (70-110) mg/dL Calcium 5.3 A* (8.7-10.3) mg/dL 02/22/25 Range/Units 06:47 ESR (0-20) mm/Hr BUN (9.0-27.0) mg/dL Est GFR (CKD-EPI) (>=60) BUN/Creatinine Ratio (12.00-20.00) Ratio Glucose (70-110) mg/dL POC Glucose (mg/dL) 209 H (70-110) mg/dL Calcium (8.7-10.3) mg/dL Assessment and Plan Assessment: 1. Hypocalcemia, with nutritional vitamin D deficiency. PTH is elevated at 528 which is appropriate given the significant hypocalcemia. Magnesium level was slightly low at 1.5, improved status post replacement 2. Hypokalemia secondary to diuretics 3. Hypomagnesemia most likely associated with use of proton pump inhibitors and secondary to diuretics 4. Hypertension 5. Type 2 diabetes maintained on insulin 6. Acute kidney injury, post void residual was 400 ml, US moderate left hydronephrosis 7. Right arm edema, US ruled out DVT Plan: US kidneys/ bladder showed moderate left hydronephrosis , recommend urology evaluation Gabapentin dose adjusted to current renal function continue calcitriol continue off Lasix Maintain calcium supplementation Repeat labs in a.m.
--- NOTE | 2025-02-22 10:55 | P.GSCN ---
History of Present Illness Consult date: 02/22/25 History of present illness: 70 yo male with multiple medical problems in the hsopital with hand and feet numbness. He had an abdominal us that showed left hydronephrosis. He also apparently has difficulty voiding He is on tamsulosin. He does have perkinsons and Diabetes.. We were asked to see the patient. He has not had a ct scan. The patient has no left flank pain. There is been no blood in the urine. When asked directly he denies any problems urinating. Review of Systems All systems: negative - Constitutional Denies fever, Denies weight loss - EENT Eyes: denies blurred vision Ears, nose, mouth and throat: Denies dysphagia - Cardiovascular Denies chest pain, Denies shortness of breath - Respiratory Denies cough, Denies 7 - Gastrointestinal Reports as per HPI - Genitourinary Denies dysuria, Denies hematuria - Integumentary Denies rash, Denies unusual bruising - Neurological Denies headaches, Denies syncope - Hematologic/Lymphatic Denies easy bleeding, Denies easy bruising Past Medical History Past Medical History: Coronary Artery Disease (CAD), Heart Failure, COPD, Diabetes Mellitus, GERD/Reflux, Hyperlipidemia, Hypertension, Myocardial Infarction (MA), Neurologic Disorder, Osteoarthritis (OA), Prostate Disorder, Thyroid Disorder Additional Past Medical History / Comment(s): early parkinson's, has insulin pump Last Myocardial Infarction Date:: April 2017 History of Any Multi-Drug Resistant Organisms: None Reported Past Surgical History: AICD, Coronary Bypass/CABG, Hernia Repair, Joint Replacement, Orthopedic Surgery, Prostate Surgery Additional Past Surgical History / Comment(s): REPAIR OF DIAPHRAGM HOLE ( [facility]). HIATAL HERNIA REPAIRED. Cataract surgery, bilateral knee replacement, penile implant, acid reflux surgery, quadruple bypass 1994, prostate surgery, stomach and small intestine surgery Past Anesthesia/Blood Transfusion Reactions: No Reported Reaction Type of Cardiac Device: AICD Device Placement Date:: 2016 Past Psychological History: No Psychological Hx Reported Smoking Status: Former smoker Past Alcohol Use History: None Reported Additional Past Alcohol Use History / Comment(s): quit smoking 15 years ago; advised no alcohol 24 hrs prior to proc. Past Drug Use History: None Reported Additional Drug Use History / Comment(s): patient states he smoked marijuana in college but not currently. - Past Family History Mother Family Medical History: Cancer Father Family Medical History: Cancer Brother(s) Family Medical History: Cancer Medications and Allergies Home Medications Medication Instructions Recorded Confirmed Type Aspirin [Adult Low Dose Aspirin EC] 81 mg PO DAILY 12/23/20 02/19/25 History Atorvastatin [Lipitor] 20 mg PO HS 12/23/20 02/19/25 History Carbidopa-Levodopa 25-100 mg 1 tab PO QID 12/23/20 02/19/25 History [Sinemet 25-100 mg] Cholecalciferol (Vitamin D3) 125 mcg PO DAILY 12/23/20 02/19/25 History [Vitamin D3 (5000 Iu)] Clopidogrel Bisulfate [Plavix] 75 mg PO DAILY 12/23/20 02/19/25 History Fludrocortisone [Florinef] 0.05 mg PO BID 12/23/20 02/19/25 History Furosemide [Lasix] 20 mg PO DAILY 12/23/20 02/19/25 History Insulin Aspart (For Pump) [NovoLOG 0.01 unit SQ-PUMP CONTINUOUS 12/23/20 02/19/25 History (For Pump)] Isosorbide Mononitrate [Isosorbide 30 mg PO DAILY 12/23/20 02/19/25 History Mononitrate ER] Magnesium Oxide 800 mg PO BID 12/23/20 02/19/25 History Metoprolol Tartrate [Lopressor] 50 mg PO BID 12/23/20 02/19/25 History Potassium Chloride [Klor-Con M10] 20 meq PO BID 12/23/20 02/19/25 History Tamsulosin [Flomax] 0.4 mg PO DAILY 12/23/20 02/19/25 History lisinopriL [Zestril] 2.5 mg PO DAILY 12/23/20 02/19/25 History rOPINIRole HCL [Requip] 2 mg PO DAILY 12/23/20 02/19/25 History Docusate [Colace] 100 mg PO BID #60 capsule 06/16/22 02/19/25 Rx levETIRAcetam [Keppra] 1,000 mg PO HS 11/24/22 02/19/25 History Albuterol Inhaler [Ventolin Hfa 2 puff INHALATION RT-Q4H PRN 11/17/24 02/19/25 History Inhaler] Ferrous Sulfate [Iron (65 MG 325 mg PO DAILY 11/17/24 02/19/25 History Elemental)] Levothyroxine Sodium [Synthroid] 50 mcg PO DAILY 11/17/24 02/19/25 History Zaleplon [Sonata] 5 mg PO HS 11/17/24 02/19/25 History traMADol HCL 50 mg PO BID PRN 11/17/24 02/19/25 History Gabapentin 600 mg PO TID 02/19/25 02/19/25 History Nitroglycerin Sl Tabs [Nitrostat] 0.4 mg SUBLINGUAL Q5M PRN 02/19/25 02/19/25 History Pantoprazole Sodium [Protonix] 20 mg PO DAILY 02/19/25 02/19/25 History Denosumab [Prolia] 02/21/25 History Allergies Allergy/AdvReac Type Severity Reaction Status Date / Time No Known Allergies Allergy Verified 02/19/25 09:54 Surgical - Exam Vital Signs Temp Pulse Resp BP Pulse Ox 98.2 F 89 18 128/67 97 02/19/25 02:11 02/19/25 02:11 02/19/25 02:11 02/19/25 02:11 02/19/25 02:11 Results - Labs 02/21/25 06:56 02/22/25 05:19 Abnormal Lab Results - Last 24 Hours (Table) 02/21/25 02/21/25 02/21/25 Range/Units 06:56 06:56 12:18 ESR 43 H (0-20) mm/Hr POC Glucose (mg/dL) 157 H (70-110) mg/dL Calcium 5.3 L* (8.4-10.2) mg/dL 02/21/25 02/21/25 02/22/25 Range/Units 20:18 22:50 04:24 ESR (0-20) mm/Hr POC Glucose (mg/dL) 126 H 52 L 217 H (70-110) mg/dL Calcium (8.4-10.2) mg/dL 02/22/25 Range/Units 06:47 ESR (0-20) mm/Hr POC Glucose (mg/dL) 209 H (70-110) mg/dL Calcium (8.4-10.2) mg/dL Diabetes panel 02/21/25 Range/Units 06:56 Calcium 5.3 L* (8.4-10.2) mg/dL Calcium panel 02/20/25 02/21/25 Range/Units 05:31 06:56 Calcium 5.3 L* (8.4-10.2) mg/dL Phosphorus 2.9 (2.4-5.1) mg/dL Pituitary panel 02/21/25 Range/Units 06:56 Calcium 5.3 L* (8.4-10.2) mg/dL Adrenal panel 02/21/25 Range/Units 06:56 Calcium 5.3 L* (8.4-10.2) mg/dL - Imaging US - kidney/bladder: report reviewed, image reviewed Assessment and Plan Assessment: Impression: left hydro on us. apparent difficulty with voiding Recommendations: The patient needs a ct scan to further assess the hydronephros is. As far as the incomplete void since he states that he is not having any problems and his urine is clear I do not think further assessment at this point in time is necessary. We will follow.
[2025-02-22 12:02] LABS: Glucose,Whole Blood 200 mg/dL (70-110)
--- NOTE | 2025-02-22 12:29 | CT ---
EXAMINATION TYPE: CT abdomen pelvis wo con DATE OF EXAM: 02/22/2025 11:28 AM COMPARISON: Ultrasound CLINICAL INDICATION: Male, 70 years old with history of Hydronephrosis left on ultrasound; Hydronephr osis found on prior US. Pt c/o bilat lower extremity edema. TECHNIQUE: Axial CT abdomen pelvis wo con;Sagittal and coronal reformats were created on a separate workstation. Contrast used: mL of , (none if empty) Oral contrast used: without Oral Contrast (none if empty) CT DLP: 406.0 mGycm, Automated exposure control for dose reduction was used. FINDINGS: LOWER CHEST: Trace left pleural effusion. Cardiac conduction leads terminating in the right ventricle and atrium. Moderate coronary artery atherosclerosis. Moderate hiatal hernia. ABDOMEN LIVER: Unremarkable GALLBLADDER AND BILE DUCTS: Unremarkable. PANCREAS: Unremarkable. SPLEEN: Unremarkable. ADRENAL GLANDS: Unremarkable. KIDNEYS AND URETERS: Moderate left hydronephrosis. No right hydronephrosis. No obstructing calculus. There is dilated left ureter which is displaced by the urinary bladder.. BLADDER: Distended urinary bladder. Which dimension as mass effect on structures in the pelvis measur ing 17.7 x 11.2 cm. No evidence for wall thickening or mass given limitations of exam. REPRODUCTIVE: Penile prosthesis with reservoir appears grossly intact. Post TURP changes of the prost ate gland. ABDOMEN & PELVIS STOMACH AND BOWEL: No evidence of bowel obstruction. Surgical suture in the upper abdomen possibly re lated to small bowel PERITONEUM/RETROPERITONEUM: No evidence of pneumoperitoneum or free fluid. VASCULATURE: No evidence of aortic aneurysm. MUSCULOSKELETAL: No acute osseous abnormalities. Moderate disc degeneration changes are present throu ghout the thoracolumbar spine. Endplate sclerosis worse at the adjoining endplates of L4-L5 that appe ars chronic. LYMPH NODES: No gross evidence for lymphadenopathy. SOFT TISSUE/ABDOMINAL WALL: Diffuse anasarca with more prominent lateral abdominal wall subcutaneous edema. This extends down into the left leg. IMPRESSION: 1. Moderate left hydronephrosis. The urinary bladder is distended. Consider reevaluation after voidi ng. No obstructive calculus visualized. Finding could be due to large urinary bladder with mass effec t on the left ureter. Urinary bladder measuring up to 17.7 x 11.2 cm. Consider Davison catheterization. 2. Anasarca worse on the left abdominal wall. 3. Trace left pleural effusion. 4. Moderate coronary artery atherosclerosis. 5. Moderate hiatal hernia [facility], , 02/22/2025 12:27 PM
--- NOTE | 2025-02-22 14:30 | P.PN ---
Subjective Progress Note Date: 02/22/25 This is a pleasant 70-year-old male with medical history of coronary artery disease with prior bypass grafting in 1994, heart failure status post AICD, COPD, diabetes mellitus, hypertension, hyperlipidemia, hypothyroidism, acid reflux, early Parkinson's. Patient is diabetic maintained on insulin pump. Edu ivy comes into the hospital secondary to complaints of bilateral hand and feet pain/numbness ongoing over the last couple days that have a worsening in nature. Additionally he reports right upper extremity weakness that began on Sunday. He is also having trouble ambulating. He has been very shaky having a difficult time opening his pill bottles and has been spilling his drinks due to worsening tremors. He has not have any chest pain or shortness of breath he denies any recent illness. He reports no speech or swallowing abnormalities. His grandmother has history of massive stroke. He lives at home by himself and usually gets around fine. Denies any alcohol, tobacco, or illicit substance use. His insulin pump was on but fell off while in the triage. EKG reveals atrial fibrillation with heart rate of 87. Initial blood work reveals a white blood cell count of 13.83, hemoglobin 10.5, BUN of 25 creatinine 1.24, calcium of 5.4, magnesium 1.5. Patient received IV calcium magnesium and potassium supplementation. He was admitted to the hospital for the hypocalcemia with nephrology consultation. 02/20/2025 Patient is evaluated in follow-up in the medical floor. Patient continues to report significant right upper extremity weakness and hand numbness. A venous Doppler was negative for acute DVT. We will check cervical imaging and currently pending neurology consultation. He was able to ambulate with physical therapy in the hallway. He is having a difficult time with meals as his right upper extremity is essentially unable to hold silverware or food. His blood work today reveals a white blood cell count 9.17, hemoglobin 8.8, MCV of 110.3, platelet count of 117. His magnesium is 1.8 calcium today is 5.0, sodium 139, potassium 3.7, BUN of 35.7 creatinine of 1.7. His lipid panel is within normal limits. Vitamin B12 is 1174. Vitamin D level is low at 21 folate is 12.90 and the TSH is 0.909. Parathyroid hormone is elevated at 528. 02/21/2025 Patient is evaluated in follow-up on the medical floor. Patient continues to report right upper extremity weakness and numbness he does report that he felt this was brought on after receiving a Prolia injection last week. He was found to have urinary retention with postvoid residuals in the 400s. Patient is refusing a catheter at this time. Pending renal ultrasound. White blood cell count today 7.46, hemoglobin 9.2, MCV 109.5, BUN of 38 creatinine of 1.63 sodium level of 137. Calcium of 5.3. IgG, IgA, IgM within normal limits. ESR is elevated at 43. 02/22/2025 Patient is evaluated in follow-up of medical floor. He continues to report right upper extremity weakness and bilateral lower extremity weakness and paresthesias however he does state that his right upper extremity has more mobility today he is still not able to fully open up his hand and it remains quite swollen. Currently pending Lyme titers with neurology planning on this adding IV high-dose steroids or IVIG pending Lyme titer reports. Calcium level today is 5.3. Patient is currently on calcitriol as well as calcium carbonate tablets. Had abdomen pelvis CT which reveals moderate left hydronephrosis the urinary bladder is distended consider reevaluation after voiding. This could be due to a large urinary bladder with mass effect in the left ureter. Urinary bladder is measuring up to 17.7 x 1.2 cm. Anasarca worse in the left abdominal wall with a trace left pleural effusion. Moderate coronary artery atherosclerosis and moderate hiatal hernia. Renal function has improved. REVIEW OF SYSTEMS: CONSTITUTIONAL: No fever, no malaise, no fatigue. HEENT: No recent visual problems or hearing problems. Denied any sore throat. CARDIOVASCULAR: No chest pain, orthopnea, PND, no palpitations, no syncope. PULMONARY: No shortness of breath, no cough, no hemoptysis. GASTROINTESTINAL: No diarrhea, no nausea, no vomiting, no abdominal pain. NEUROLOGICAL: No headaches, no weakness, no numbness. Reports right upper extremity weakness and hand numbness/parasthesias. Right hand swelling PHYSICAL EXAMINATION: GENERAL: The patient is alert and oriented x3, not in any acute distress. Well developed, well nourished. HEENT: Pupils are round and equally reacting to light. EOMI. No scleral icterus. No conjunctival pallor. Normocephalic, atraumatic. No pharyngeal erythema. No thyromegaly. CARDIOVASCULAR: S1 and S2 present. No murmurs, rubs, or gallops. PULMONARY: Chest is clear to auscultation, no wheezing or crackles. ABDOMEN: Soft, nontender, nondistended, normoactive bowel sounds. No palpable organomegaly. MUSCULOSKELETAL: No joint swelling or deformity. EXTREMITIES: No cyanosis, clubbing, or pedal edema. RUE 3/5 strength. Swelling. NEUROLOGICAL: Gross neurological examination did not reveal any focal deficits. SKIN: No rashes. Assessment Right upper extremity weakness and parasthesias rule out acute ischemic stroke Bilateral lower extremity parasthesias Hypocalcemia Elevated PTH because of the hypocalcemia Moderate left hydronephrosis Macrocytic anemia Diabetes Mellitus insulin dependent with hyperglycemia Hypokalemia Hypomagnesemia COPD stable Hypertension Hyperlipidemia Parkinson's disorder Hypothyroidism Gastroesophageal reflux Heart failure with AICD Hx coronary artery disease with CABG in 1994 Prostate cancer post TURP Penile prosthetic Chronic pain GI prophylaxis: protonix DVT prophylaxis: Lovenox Full Code Plan Pending lyme titers Neurology following unable to get MRI secondary to the defibrillator Nephrology on consultation for the hypocalcemia Continue calcium carbonate twice daily Calcium gluconate 2 gram IVPB ordered Add calcitriol Supplement magnesium level Insulin pump is currently discontinued Patient is on sliding scale insulin with ACHS accuchecks Continue lantus Home medications have been reordered as appropriate including aspirin 81 mg daily, plavix 75 mg daily and atorvastatin 20 mg HS. PT/OT consultation Repeat labs in the AM The impression and plan of care has been dictated by Halley Sneed, Nurse Practitioner as directed. Dr. Craig MD I have performed a history and physical examination and medical decision making of this patient, discussed the same with the dictator, and agree with the dictators assessment and plan as written, documented as a scribe. Based on total visit time, I have performed more than 50% of this visit. Objective - Vital Signs Vital signs: Vital Signs Temp 98.4 F 02/22/25 12:27 Pulse 92 02/22/25 12:27 Resp 16 02/22/25 12:27 BP 99/51 02/22/25 12:27 Pulse Ox 97 02/22/25 06:50 FiO2 Intake & Output 02/21/25 02/22/25 02/22/25 18:59 06:59 18:59 Intake Total 2019 480 Balance 2019 480 Intake: Oral 2019 480 Other: # Voids 5 2 # Bowel Movements 1 1 - Labs CBC & Chem 7: 02/21/25 06:56 02/22/25 05:19 Labs: Abnormal Lab Results - Last 24 Hours (Table) 02/21/25 02/21/25 02/22/25 Range/Units 20:18 22:50 04:24 BUN (9.0-27.0) mg/dL Est GFR (CKD-EPI) (>=60) BUN/Creatinine Ratio (12.00-20.00) Ratio Glucose (70-110) mg/dL POC Glucose (mg/dL) 126 H 52 L 217 H (70-110) mg/dL Calcium (8.7-10.3) mg/dL 02/22/25 02/22/25 02/22/25 Range/Units 05:19 06:47 12:00 BUN 33.2 H (9.0-27.0) mg/dL Est GFR (CKD-EPI) 54 L (>=60) BUN/Creatinine Ratio 23.71 H (12.00-20.00) Ratio Glucose 205 H (70-110) mg/dL POC Glucose (mg/dL) 209 H 200 H (70-110) mg/dL Calcium 5.3 A* (8.7-10.3) mg/dL Assessment and Plan Time with Patient: Less than 30
[2025-02-22] MEDS: CALCIUM GLUCONATE IN NACL 2 GM in SALINE 1 100ML.BAG IVPB ONE (15:24)
[2025-02-22 17:01] LABS: Glucose,Whole Blood 208 mg/dL (70-110)
[2025-02-22 20:26] LABS: Glucose,Whole Blood 292 mg/dL (70-110)
[2025-02-23 07:39] LABS: Glucose,Whole Blood 211 mg/dL (70-110)
--- NOTE | 2025-02-23 08:24 | P.PN ---
Subjective Patient is seen in follow-up for hypocalcemia and acute kidney injury on chronic kidney disease. Oral intake fair. Has been retaining urine. Required straight catheterization this morning. Vital signs are stable. General: No acute distress. HEENT: Head exam is unremarkable. LUNGS: No audible rhonchi or wheezes. HEART: Rate and Rhythm are regular. ABDOMEN: Nontender. EXTREMITITES: 1+ edema. Objective - Vital Signs Vital signs: Vital Signs Temp 98.7 F 02/23/25 07:35 Pulse 66 02/23/25 07:35 Resp 12 02/23/25 07:35 BP 105/55 02/23/25 07:35 Pulse Ox 94 L 02/23/25 07:35 FiO2 Intake & Output 02/22/25 02/23/25 02/23/25 18:59 06:59 18:59 Intake Total 2460 Output Total 725 Balance 2460 -725 Intake: Oral 2460 Output: Post Void Residual 725 Other: # Voids 5 3 # Bowel Movements 1 1 - Labs CBC & Chem 7: 02/21/25 06:56 02/22/25 05:19 Labs: Abnormal Lab Results - Last 24 Hours (Table) 02/22/25 02/22/25 02/22/25 Range/Units 05:19 12:00 16:58 BUN 33.2 H (9.0-27.0) mg/dL Est GFR (CKD-EPI) 54 L (>=60) BUN/Creatinine Ratio 23.71 H (12.00-20.00) Ratio Glucose 205 H (70-110) mg/dL POC Glucose (mg/dL) 200 H 208 H (70-110) mg/dL Calcium 5.3 A* (8.7-10.3) mg/dL 02/22/25 02/23/25 Range/Units 20:25 07:38 BUN (9.0-27.0) mg/dL Est GFR (CKD-EPI) (>=60) BUN/Creatinine Ratio (12.00-20.00) Ratio Glucose (70-110) mg/dL POC Glucose (mg/dL) 292 H 211 H (70-110) mg/dL Calcium (8.7-10.3) mg/dL Assessment and Plan Plan: Assessment: 1. Acute kidney injury secondary to ATN and urinary retention. Creatinine peaked at 1.7 this admission and was 1.4 yesterday. 2. Chronic kidney disease stage IIIa with baseline creatinine 1.2-1.4 secondary to nephrosclerosis. 3. Hypocalcemia secondary to Prolia. Was also on loop diuretic outpatient. Vitamin D noted to be low as well. PTH appropriately elevated at 528. TSH normal. Vitamin D level 21. 4. Urinary retention. Left-sided hydronephrosis noted on CT. On Flomax. Urology following. 5. Diabetes mellitus. 6. Hypomagnesemia from PPI use and loop diuretics. On oral magnesium oxide. Better. 7. Anemia. Iron deficiency noted. Plan: Maintain Tums and vitamin D. Patient also received IV calcium. Morning labs pending. Add IV iron. Add calcitriol.
[2025-02-23 08:48] LABS: ALT 21 U/L (4-49); AST 81 U/L (17-59); African American GFR (CKD) 60 (>60 ml/min/1.73 sqM); Albumin 2.6 g/dL (3.5-5.0); Alkaline Phosphatase 97 U/L (38-126); Anion Gap 7 mmol/L; Blood Urea Nitrogen 30 mg/dL (9-20); Carbon Dioxide 25 mmol/L (22-30); Chloride 108 mmol/L (98-107); Globulin 2.5 g/dL; Glucose 195 mg/dL (74-99); Non-African American GFR(CKD) 52 (>60 ml/min/1.73 sqM); Potassium 3.5 mmol/L (3.5-5.1); Sodium 140 mmol/L (137-145); Total Bilirubin 0.5 mg/dL (0.2-1.3); Total Protein 5.1 g/dL (6.3-8.2)
[2025-02-23 08:57] LABS: Calcium 5.8 mg/dL (8.4-10.2)
[2025-02-23] MEDS: SODIUM FERRIC GLUCONAT-SUCROSE 125 MG in SODIUM CHLORIDE 0.9% 100 ML IVPB SCH (09:22)
[2025-02-23 12:28] LABS: Glucose,Whole Blood 250 mg/dL (70-110)
[2025-02-23] MEDS: CALCIUM GLUCONATE IN NACL 2 GM in SALINE 1 100ML.BAG IVPB ONE (12:35)
--- NOTE | 2025-02-23 15:24 | P.PN ---
Subjective Progress Note Date: 02/23/25 I am seeing the patient for the first time. Please refer to Dr. Lo and Morris's notes for further details. Patient stated about a week ago he noticed his right shoulder and right arm/hand is stiff, sore painful and is swollen. Also noticed bilateral feet are numb and swollen. His pain was progressive getting worse and difficult making fist of hand because of swelling. He does have history of diabetes. He follows-up with Dr. Wheat for Parkinson's disease. Objective - Vital Signs Vital signs: Vital Signs Temp 98.2 F 02/23/25 13:19 Pulse 58 L 02/23/25 13:19 Resp 16 02/23/25 13:19 BP 93/47 02/23/25 13:19 Pulse Ox 97 02/23/25 13:19 FiO2 Intake & Output 02/22/25 02/23/25 02/23/25 18:59 06:59 18:59 Intake Total 2460 240 Output Total 725 Balance 2460 -725 240 Intake: Oral 2460 240 Output: Post Void Residual 725 Other: # Voids 5 3 # Bowel Movements 1 1 1 - Exam General: Lying in bed and is not in acute distress. Neuro: The patient is awake, alert, oriented to self, place and time. Is following simple commands. No aphasia. Pupils are round, equal and reactive to light. Visual diop are full to confro ntation. No facial weakness. No dysarthria. Motor: The strength is limited in the right upper extremity because of edema that is noticeabl. Otherwise strength is 5/5 throughout. Sensation is normal to touch. Cerebellar: Normal finger to nose Reflexes (right/left): Biceps 2+/2+; triceps0/0; brachioradialis 0-1/0-1; patellar0/0 (had bilateral surgeries prior); ankles0-1/0-1. - Labs CBC & Chem 7: 02/21/25 06:56 02/23/25 08:15 Labs: Abnormal Lab Results - Last 24 Hours (Table) 02/22/25 02/22/25 02/23/25 Range/Units 16:58 20:25 07:38 Chloride (98-107) mmol/L BUN (9-20) mg/dL Creatinine (0.66-1.25) mg/dL Glucose (74-99) mg/dL POC Glucose (mg/dL) 208 H 292 H 211 H (70-110) mg/dL Calcium (8.4-10.2) mg/dL AST (17-59) U/L Total Protein (6.3-8.2) g/dL Albumin (3.5-5.0) g/dL 02/23/25 02/23/25 Range/Units 08:15 12:26 Chloride 108 H (98-107) mmol/L BUN 30 H (9-20) mg/dL Creatinine 1.38 H (0.66-1.25) mg/dL Glucose 195 H (74-99) mg/dL POC Glucose (mg/dL) 250 H (70-110) mg/dL Calcium 5.8 L* (8.4-10.2) mg/dL AST 81 H (17-59) U/L Total Protein 5.1 L (6.3-8.2) g/dL Albumin 2.6 L (3.5-5.0) g/dL Assessment and Plan Assessment: This is a 70-year-old male with longstanding history of type 1 diabetes, with diabetic neuropathy has presented with rapidly progressive painful weakness of right upper extremity. Overall pattern suggestive of diabetic plexopathy but cannot rule out due to hypocalcemia. Patient has milder symptoms in the left upper extremity as well, but the strength appears well-preserved. * Diabetic neuropathy, slightly worse. However the strength in the lower limbs are normal. * Hypocalcemia * Left hydronephrosis * Chronic renal disease * Coronary artery disease * Hypertension * Hyperlipidemia * Reported history of Parkinson's * Presence of defibrillator * Ex tobacco use Plan: * Patient cannot have MRI of the cervical spine/brachial plexus because of presence of defibrillator, consider ultrasound of the brachial plexus. * I ordered CT cervical spine and lumbar spine. * Recommend EMG with NCS as outpatient of uppers and lowers. * Per my colleagues, Lumbar puncture was considered, but patient is on Plavix. * We will perform detailed blood tests as per order section-sed rate is elevated at 43, Lyme titers are pending, immunoglobulin levels are normal. * Per Dr. Lo and Dr. Caceres, patient may benefit from course of high-dose steroids versus IVIG-will not start either treatment until Lyme titers return. * B12 1174, folate 12.90, TSH 0.909, Hemoglobin A1c 6.7 * Nephrology is on board. * Urology is consulted Time with Patient: Less than 30
[2025-02-23 17:08] LABS: Glucose,Whole Blood 272 mg/dL (70-110)
--- NOTE | 2025-02-23 18:43 | P.PN ---
Subjective Progress Note Date: 02/23/25 Principal diagnosis: Hydronephrosis Ultrasound showed evidence of hydronephrosis, so a CT scan was obtained revealing moderate left hydronephrosis and bladder distention. Objective - Vital Signs Vital signs: Vital Signs Temp 98.2 F 02/23/25 13:19 Pulse 58 L 02/23/25 13:19 Resp 16 02/23/25 13:19 BP 93/47 02/23/25 13:19 Pulse Ox 97 02/23/25 13:19 FiO2 Intake & Output 02/22/25 02/23/25 02/23/25 18:59 06:59 18:59 Intake Total 2460 820 Output Total 725 2025 Balance 2460 -725 -1205 Intake: Oral 2460 820 Output: Urine 2024 Uretheral (Davison) 1400 Post Void Residual 725 Other: # Voids 5 3 # Bowel Movements 1 1 1 - Constitutional General appearance: Present: average body habitus, cooperative, no acute distress - Gastrointestinal Gastrointestinal Comment(s): Soft, non-tender. Mild suprapubic distention is noted. - Psychiatric Psychiatric: Present: A&O x's 3 - Labs CBC & Chem 7: 02/21/25 06:56 02/23/25 08:15 Labs: Abnormal Lab Results - Last 24 Hours (Table) 02/22/25 02/23/25 02/23/25 Range/Units 20:25 07:38 08:15 Chloride 108 H (98-107) mmol/L BUN 30 H (9-20) mg/dL Creatinine 1.38 H (0.66-1.25) mg/dL Glucose 195 H (74-99) mg/dL POC Glucose (mg/dL) 292 H 211 H (70-110) mg/dL Calcium 5.8 L* (8.4-10.2) mg/dL AST 81 H (17-59) U/L Total Protein 5.1 L (6.3-8.2) g/dL Albumin 2.6 L (3.5-5.0) g/dL 02/23/25 02/23/25 Range/Units 12:26 17:07 Chloride (98-107) mmol/L BUN (9-20) mg/dL Creatinine (0.66-1.25) mg/dL Glucose (74-99) mg/dL POC Glucose (mg/dL) 250 H 272 H (70-110) mg/dL Calcium (8.4-10.2) mg/dL AST (17-59) U/L Total Protein (6.3-8.2) g/dL Albumin (3.5-5.0) g/dL Assessment and Plan (1) Retention of urine, unspecified Current Visit: Yes Status: Acute Code(s): R33.9 - RETENTION OF URINE, UNSPECIFIED SNOMED Code(s): 931651584 (2) Unspecified hydronephrosis Current Visit: Yes Status: Acute Code(s): N13.30 - UNSPECIFIED HYDRONEPHROSIS SNOMED Code(s): 54593614 Plan: Bladder scan showed >999 cc, so a Davison catheter was placed with return of 1400 cc of urine. It is my recommendation that the Davison catheter remain in place for a minimum of 2 to 3 weeks. Arrangements will be made for him to undergo urodynamic testing and cystoscopy in our office for further evaluation.
[2025-02-23 20:03] LABS: Glucose,Whole Blood 149 mg/dL (70-110)
--- NOTE | 2025-02-23 20:09 | CT ---
EXAMINATION TYPE: CT cervical spine wo con DATE OF EXAM: 02/23/2025 5:26 PM COMPARISON: None available. CLINICAL INDICATION: Male, 70 years old with history of right arm weakness; Right arm weakness TECHNIQUE: Axial CT images from the skull base to the inferior aspect of T2 we obtained without intra venous contrast. Coronal and sagittal reformatted images were also reviewed. CT DLP: 363.8 mGycm, Automated exposure control for dose reduction was used. FINDINGS: Fracture: No acute fracture or traumatic subluxation Osseous structures: Multilevel intervertebral disc space loss, most pronounced at C6-C7. Endplate scl erotic changes, most pronounced at C6-C7. Bridging anterior osteophyte formation at C6-C7. Vertebral alignment: Straightening of the normal cervical spine lordotic curvature. Mild retrolisthes is of C4 on C5. Spinal canal/Neural Foramina: Multilevel facet arthropathy/uncovertebral hypertrophy causes varying d egrees of multilevel neural foraminal narrowing and spinal canal stenosis. Spinal canal stenosis is m ost pronounced at C6-C7, where there is moderate canal narrowing. Neck soft tissues: Prevertebral soft tissues are within normal limits. Other: The airway is patent. Partially visualized right lung deficits nonspecific ground glass attenu ation opacities. IMPRESSION: 1. No acute fracture or traumatic subluxation of the cervical spine. 2. Multilevel cervical spine degenerative changes as above. Findings are most pronounced at C6-C7 wh ere there is suspected moderate spinal canal stenosis. More definitive evaluation could be obtained w ith MRI cervical spine is currently warranted. 3. Nonspecific ground glass attenuation opacities in the partially visualized right lung. [facility], , 02/23/2025 8:07 PM
--- NOTE | 2025-02-23 21:02 | P.PN ---
Subjective Progress Note Date: 02/23/25 This is a pleasant 70-year-old male with medical history of coronary artery disease with prior bypass grafting in 1994, heart failure status post AICD, COPD, diabetes mellitus, hypertension, hyperlipidemia, hypothyroidism, acid reflux, early Parkinson's. Patient is diabetic maintained on insulin pump. Edu ivy comes into the hospital secondary to complaints of bilateral hand and feet pain/numbness ongoing over the last couple days that have a worsening in nature. Additionally he reports right upper extremity weakness that began on Sunday. He is also having trouble ambulating. He has been very shaky having a difficult time opening his pill bottles and has been spilling his drinks due to worsening tremors. He has not have any chest pain or shortness of breath he denies any recent illness. He reports no speech or swallowing abnormalities. His grandmother has history of massive stroke. He lives at home by himself and usually gets around fine. Denies any alcohol, tobacco, or illicit substance use. His insulin pump was on but fell off while in the triage. EKG reveals atrial fibrillation with heart rate of 87. Initial blood work reveals a white blood cell count of 13.83, hemoglobin 10.5, BUN of 25 creatinine 1.24, calcium of 5.4, magnesium 1.5. Patient received IV calcium magnesium and potassium supplementation. He was admitted to the hospital for the hypocalcemia with nephrology consultation. 02/20/2025 Patient is evaluated in follow-up in the medical floor. Patient continues to report significant right upper extremity weakness and hand numbness. A venous Doppler was negative for acute DVT. We will check cervical imaging and currently pending neurology consultation. He was able to ambulate with physical therapy in the hallway. He is having a difficult time with meals as his right upper extremity is essentially unable to hold silverware or food. His blood work today reveals a white blood cell count 9.17, hemoglobin 8.8, MCV of 110.3, platelet count of 117. His magnesium is 1.8 calcium today is 5.0, sodium 139, potassium 3.7, BUN of 35.7 creatinine of 1.7. His lipid panel is within normal limits. Vitamin B12 is 1174. Vitamin D level is low at 21 folate is 12.90 and the TSH is 0.909. Parathyroid hormone is elevated at 528. 02/21/2025 Patient is evaluated in follow-up on the medical floor. Patient continues to report right upper extremity weakness and numbness he does report that he felt this was brought on after receiving a Prolia injection last week. He was found to have urinary retention with postvoid residuals in the 400s. Patient is refusing a catheter at this time. Pending renal ultrasound. White blood cell count today 7.46, hemoglobin 9.2, MCV 109.5, BUN of 38 creatinine of 1.63 sodium level of 137. Calcium of 5.3. IgG, IgA, IgM within normal limits. ESR is elevated at 43. 02/22/2025 Patient is evaluated in follow-up of medical floor. He continues to report right upper extremity weakness and bilateral lower extremity weakness and paresthesias however he does state that his right upper extremity has more mobility today he is still not able to fully open up his hand and it remains quite swollen. Currently pending Lyme titers with neurology planning on this adding IV high-dose steroids or IVIG pending Lyme titer reports. Calcium level today is 5.3. Patient is currently on calcitriol as well as calcium carbonate tablets. Had abdomen pelvis CT which reveals moderate left hydronephrosis the urinary bladder is distended consider reevaluation after voiding. This could be due to a large urinary bladder with mass effect in the left ureter. Urinary bladder is measuring up to 17.7 x 1.2 cm. Anasarca worse in the left abdominal wall with a trace left pleural effusion. Moderate coronary artery atherosclerosis and moderate hiatal hernia. Renal function has improved. 02/23/2025 Patient is evaluated today in follow up on the medical floor. He reports improvement in his right upper extremity weakness. He states the parasthesias in his feet is improving and he was able to ambulate easier today. Lyme screening was negative. Indwelling interiano catheter was placed with 1.4 L of urine output. Bun 30, creatinine 1.38. Calcium 5.8. Was started on IV iron. REVIEW OF SYSTEMS: CONSTITUTIONAL: No fever, no malaise, no fatigue. HEENT: No recent visual problems or hearing problems. Denied any sore throat. CARDIOVASCULAR: No chest pain, orthopnea, PND, no palpitations, no syncope. PULMONARY: No shortness of breath, no cough, no hemoptysis. GASTROINTESTINAL: No diarrhea, no nausea, no vomiting, no abdominal pain. NEUROLOGICAL: No headaches, no weakness, no numbness. Reports right upper extremity weakness and hand numbness/parasthesias. Right hand swelling PHYSICAL EXAMINATION: GENERAL: The patient is alert and oriented x3, not in any acute distress. Well developed, well nourished. HEENT: Pupils are round and equally reacting to light. EOMI. No scleral icterus. No conjunctival pallor. Normocephalic, atraumatic. No pharyngeal erythema. No thyromegaly. CARDIOVASCULAR: S1 and S2 present. No murmurs, rubs, or gallops. PULMONARY: Chest is clear to auscultation, no wheezing or crackles. ABDOMEN: Soft, nontender, nondistended, normoactive bowel sounds. No palpable organomegaly. MUSCULOSKELETAL: No joint swelling or deformity. EXTREMITIES: No cyanosis, clubbing, or pedal edema. RUE 3/5 strength. Swelling. NEUROLOGICAL: Gross neurological examination did not reveal any focal deficits. SKIN: No rashes. Assessment Right upper extremity weakness and parasthesias rule out acute ischemic stroke Bilateral lower extremity parasthesias Hypocalcemia likely from prolia injectin Urinary retention MARZENA from the urinary retention and obstructive uropathy Elevated PTH because of the hypocalcemia Moderate left hydronephrosis Macrocytic anemia Diabetes Mellitus insulin dependent with hyperglycemia Hypokalemia Hypomagnesemia COPD stable Hypertension Hyperlipidemia Parkinson's disorder Hypothyroidism Gastroesophageal reflux Heart failure with AICD Hx coronary artery disease with CABG in 1994 Prostate cancer post TURP Penile prosthetic Chronic pain GI prophylaxis: protonix DVT prophylaxis: Lovenox Full Code Plan Neurology following unable to get MRI secondary to the defibrillator Nephrology on consultation for the hypocalcemia Continue calcium carbonate twice daily Calcium gluconate 2 gram IVPB ordered Add calcitriol Insulin pump is currently discontinued Patient is on sliding scale insulin with ACHS accuchecks Continue lantus Home medications have been reordered as appropriate including aspirin 81 mg daily, plavix 75 mg daily and atorvastatin 20 mg HS. PT/OT consultation Repeat labs in the AM The impression and plan of care has been dictated by Halley Sneed Nurse Practitioner as directed. Dr. Craig MD I have performed a history and physical examination and medical decision making of this patient, discussed the same with the dictator, and agree with the dictators assessment and plan as written, documented as a scribe. Based on total visit time, I have performed more than 50% of this visit. Objective - Vital Signs Vital signs: Vital Signs Temp 98.7 F 02/23/25 07:35 Pulse 66 02/23/25 07:35 Resp 12 02/23/25 07:35 BP 105/55 02/23/25 07:35 Pulse Ox 94 L 02/23/25 07:35 FiO2 Intake & Output 02/22/25 02/23/25 02/23/25 18:59 06:59 18:59 Intake Total 2460 Output Total 725 Balance 2460 -725 Intake: Oral 2460 Output: Post Void Residual 725 Other: # Voids 5 3 # Bowel Movements 1 1 - Labs CBC & Chem 7: 02/21/25 06:56 02/23/25 08:15 Labs: Abnormal Lab Results - Last 24 Hours (Table) 02/22/25 02/22/25 02/22/25 Range/Units 12:00 16:58 20:25 Chloride (98-107) mmol/L BUN (9-20) mg/dL Creatinine (0.66-1.25) mg/dL Glucose (74-99) mg/dL POC Glucose (mg/dL) 200 H 208 H 292 H (70-110) mg/dL Calcium (8.4-10.2) mg/dL AST (17-59) U/L Total Protein (6.3-8.2) g/dL Albumin (3.5-5.0) g/dL 02/23/25 02/23/25 Range/Units 07:38 08:15 Chloride 108 H (98-107) mmol/L BUN 30 H (9-20) mg/dL Creatinine 1.38 H (0.66-1.25) mg/dL Glucose 195 H (74-99) mg/dL POC Glucose (mg/dL) 211 H (70-110) mg/dL Calcium 5.8 L* (8.4-10.2) mg/dL AST 81 H (17-59) U/L Total Protein 5.1 L (6.3-8.2) g/dL Albumin 2.6 L (3.5-5.0) g/dL Assessment and Plan Time with Patient: Less than 30
--- NOTE | 2025-02-23 22:22 | CT ---
EXAMINATION TYPE: CT lumbar spine wo con DATE OF EXAM: 02/23/2025 5:26 PM COMPARISON: Same day CT abdomen/pelvis study. CLINICAL INDICATION: Male, 70 years old with history of right weakness; PHH, Right sided weakness TECHNIQUE: Multiple axial images were obtained from the midportion of T11 through the sacroiliac meryl nts. Soft tissue and bone windows in coronal and sagittal planes were obtained and reviewed. 3-D ref ormats of the bones were created on a separate workstation and submitted for review. CT DLP: 843.3 mGycm, Automated exposure control for dose reduction was used. FINDINGS: Alignment: There are 5 lumbar type vertebral bodies within normal alignment. Bone: No evidence of fracture is identified. Discs: T12-L1: No significant spinal canal or neural foraminal stenosis is identified. L1-L2: No significant spinal canal or neural foraminal stenosis is identified. L2-L3: Facet arthropathy minimal circumferential disc bulging and ligamentum flavum hypertrophy cause mild effacement of the thecal sac without significant spinal canal stenosis. Mild bilateral neural f oraminal narrowing. L3-L4: Circumferential disc bulging in combination with facet arthropathy causes mild spinal canal st enosis. Moderate to severe left and [id number] right neural foraminal narrowing. Left neural fo raminal narrowing due to left foraminal disc osteophyte complex. L4-L5: Severe intervertebral disc space loss and endplate sclerosis with erosive changes, most pronou nced at the L3 inferior endplate. No significant spinal canal stenosis. Circumferential disc bulging and facet arthropathy cause mild to moderate bilateral neural foraminal narrowing. L5-S1: Circumferential disc bulging and facet arthropathy cause moderate left neural foraminal narrow ing and mild right neural foraminal narrowing. No evidence of significant spinal canal stenosis. Other: Partially visualized trace bilateral pleural effusions. IMPRESSION: 1. No acute fracture or traumatic subluxation of the lumbosacral spine. 2. Multilevel lumbosacral spine degenerative changes as above. 3. Sclerosis and endplate erosive changes at L4-L5 felt to most likely reflect chronic degenerative etiology, recommend correlation with any prior outside imaging if available. Discitis/osteomyelitis c an have a similar appearance however, and the need for further evaluation with MRI lumbar spine with IV contrast should be determined clinically. [facility], Workstation: [id number], 02/23/2025 10:19 PM
[2025-02-24 07:36] LABS: Glucose,Whole Blood 184 mg/dL (70-110)
[2025-02-24 08:57] LABS: Magnesium 1.9 mg/dL (1.5-2.4)
[2025-02-24 08:59] LABS: ALT 21 U/L (10-49); AST 60 U/L (14-35); Albumin 2.6 g/dL (3.8-4.9); Alkaline Phosphatase 95 U/L (41-126); BUN/Creat Ratio 16.27 Ratio (12.00-20.00); Blood Urea Nitrogen 24.4 mg/dL (9.0-27.0); Calcium 5.9 mg/dL (8.7-10.3); Carbon Dioxide 26.6 mmol/L (21.6-31.8); Chloride 109 mmol/L (96-109); Glucose 160 mg/dL (70-110); Potassium 3.5 mmol/L (3.5-5.5); Sodium 145 mmol/L (135-145); Total Bilirubin 0.3 mg/dL (0.3-1.2); Total Protein 4.6 g/dL (6.2-8.2)
--- NOTE | 2025-02-24 11:53 | P.PN ---
Subjective Patient is seen in follow-up for hypocalcemia and acute kidney injury on chronic kidney disease. Oral intake fair. Nonoliguric. Vital signs are stable. General: No acute distress. HEENT: Head exam is unremarkable. LUNGS: No audible rhonchi or wheezes. HEART: Rate and Rhythm are regular. ABDOMEN: Nontender. EXTREMITITES: Trace edema. Objective - Vital Signs Vital signs: Vital Signs Temp 98.2 F 02/24/25 08:00 Pulse 62 02/24/25 08:00 Resp 17 02/24/25 08:00 BP 119/60 02/24/25 08:00 Pulse Ox 95 02/24/25 08:00 FiO2 Intake & Output 02/23/25 02/24/25 02/24/25 18:59 06:59 18:59 Intake Total 1400 222 240 Output Total 2024 1800 600 Balance -625 -1578 -019 Intake: Oral 1400 222 240 Output: Urine 2024 1800 600 Uretheral (Davison) 1400 600 Other: # Bowel Movements 1 1 - Labs CBC & Chem 7: 02/21/25 06:56 02/24/25 04:43 Labs: Abnormal Lab Results - Last 24 Hours (Table) 02/23/25 02/23/25 02/23/25 Range/Units 12:26 17:07 20:01 Est GFR (CKD-EPI) (>=60) Glucose (70-110) mg/dL POC Glucose (mg/dL) 250 H 272 H 149 H (70-110) mg/dL Calcium (8.7-10.3) mg/dL AST (14-35) U/L Total Protein (6.2-8.2) g/dL Albumin (3.8-4.9) g/dL Albumin/Globulin Ratio (1.60-3.17) Ratio 02/24/25 02/24/25 Range/Units 04:43 07:35 Est GFR (CKD-EPI) 50 L (>=60) Glucose 160 H (70-110) mg/dL POC Glucose (mg/dL) 184 H (70-110) mg/dL Calcium 5.9 A* (8.7-10.3) mg/dL AST 60 H (14-35) U/L Total Protein 4.6 L (6.2-8.2) g/dL Albumin 2.6 L (3.8-4.9) g/dL Albumin/Globulin Ratio 1.30 L (1.60-3.17) Ratio Assessment and Plan Plan: Assessment: 1. Acute kidney injury secondary to ATN and urinary retention. Creatinine peaked at 1.7 this admission and is stable at 1.5 today. 2. Chronic kidney disease stage IIIa with baseline creatinine 1.2-1.4 secondary to nephrosclerosis. 3. Hypocalcemia secondary to Prolia. Was also on loop diuretic outpatient. Vitamin D noted to be low as well. PTH appropriately elevated at 528. TSH normal. Vitamin D level 21. 4. Urinary retention. Left-sided hydronephrosis noted on CT. On Flomax. Urology following. 5. Diabetes mellitus. 6. Hypomagnesemia from PPI use and loop diuretics. On oral magnesium oxide. Better. 7. Anemia. Iron deficiency noted. Plan: Maintain Tums and vitamin D. 2 g IV calcium gluconate today. Increased dose of calcitriol. Maintain IV iron.
--- NOTE | 2025-02-24 12:08 | P.PN ---
Subjective Progress Note Date: 02/24/25 Principal diagnosis: Hydronephrosis, urinary retention Ultrasound showed evidence of hydronephrosis, so a CT scan was obtained revealing moderate left hydronephrosis and bladder distention. A Davison catheter was placed, with return of 1400 cc of urine. The catheter is now draining clear urine. Objective - Vital Signs Vital signs: Vital Signs Temp 98.2 F 02/24/25 08:00 Pulse 62 02/24/25 08:00 Resp 17 02/24/25 08:00 BP 119/60 02/24/25 08:00 Pulse Ox 95 02/24/25 08:00 FiO2 Intake & Output 02/23/25 02/24/25 02/24/25 18:59 06:59 18:59 Intake Total 1400 222 240 Output Total 2024 1800 600 Balance -625 -1578 -360 Intake: Oral 1400 222 240 Output: Urine 2024 1800 600 Uretheral (Davison) 1400 600 Other: # Bowel Movements 1 1 - Constitutional General appearance: Present: average body habitus, cooperative, no acute distress - Psychiatric Psychiatric: Present: A&O x's 3 - Labs CBC & Chem 7: 02/21/25 06:56 02/24/25 04:43 Labs: Abnormal Lab Results - Last 24 Hours (Table) 02/23/25 02/23/25 02/23/25 Range/Units 12:26 17:07 20:01 Est GFR (CKD-EPI) (>=60) Glucose (70-110) mg/dL POC Glucose (mg/dL) 250 H 272 H 149 H (70-110) mg/dL Calcium (8.7-10.3) mg/dL AST (14-35) U/L Total Protein (6.2-8.2) g/dL Albumin (3.8-4.9) g/dL Albumin/Globulin Ratio (1.60-3.17) Ratio 02/24/25 02/24/25 Range/Units 04:43 07:35 Est GFR (CKD-EPI) 50 L (>=60) Glucose 160 H (70-110) mg/dL POC Glucose (mg/dL) 184 H (70-110) mg/dL Calcium 5.9 A* (8.7-10.3) mg/dL AST 60 H (14-35) U/L Total Protein 4.6 L (6.2-8.2) g/dL Albumin 2.6 L (3.8-4.9) g/dL Albumin/Globulin Ratio 1.30 L (1.60-3.17) Ratio Assessment and Plan (1) Retention of urine, unspecified Current Visit: Yes Status: Acute Code(s): R33.9 - RETENTION OF URINE, UNSPECIFIED SNOMED Code(s): 442952384 (2) Unspecified hydronephrosis Current Visit: Yes Status: Acute Code(s): N13.30 - UNSPECIFIED HYDRONEPHROSIS SNOMED Code(s): 89337305 Plan: Patient may be discharged home from a urologic standpoint, and the Davison catheter will remain in place for a minimum of 2 to 3 weeks. Upon discharge, he will be contacted by my office to schedule outpatient urodynamic testing and cystoscopy.
[2025-02-24 12:13] LABS: Glucose,Whole Blood 236 mg/dL (70-110)
[2025-02-24] MEDS: CALCIUM GLUCONATE IN NACL 2 GM in SALINE 1 100ML.BAG IVPB ONE (12:37)
--- NOTE | 2025-02-24 13:50 | P.PN ---
Subjective Progress Note Date: 02/24/25 This is a pleasant 70-year-old male with medical history of coronary artery disease with prior bypass grafting in 1994, heart failure status post AICD, COPD, diabetes mellitus, hypertension, hyperlipidemia, hypothyroidism, acid reflux, early Parkinson's. Patient is diabetic maintained on insulin pump. Edu ivy comes into the hospital secondary to complaints of bilateral hand and feet pain/numbness ongoing over the last couple days that have a worsening in nature. Additionally he reports right upper extremity weakness that began on Sunday. He is also having trouble ambulating. He has been very shaky having a difficult time opening his pill bottles and has been spilling his drinks due to worsening tremors. He has not have any chest pain or shortness of breath he denies any recent illness. He reports no speech or swallowing abnormalities. His grandmother has history of massive stroke. He lives at home by himself and usually gets around fine. Denies any alcohol, tobacco, or illicit substance use. His insulin pump was on but fell off while in the triage. EKG reveals atrial fibrillation with heart rate of 87. Initial blood work reveals a white blood cell count of 13.83, hemoglobin 10.5, BUN of 25 creatinine 1.24, calcium of 5.4, magnesium 1.5. Patient received IV calcium magnesium and potassium supplementation. He was admitted to the hospital for the hypocalcemia with nephrology consultation. 02/20/2025 Patient is evaluated in follow-up in the medical floor. Patient continues to report significant right upper extremity weakness and hand numbness. A venous Doppler was negative for acute DVT. We will check cervical imaging and currently pending neurology consultation. He was able to ambulate with physical therapy in the hallway. He is having a difficult time with meals as his right upper extremity is essentially unable to hold silverware or food. His blood work today reveals a white blood cell count 9.17, hemoglobin 8.8, MCV of 110.3, platelet count of 117. His magnesium is 1.8 calcium today is 5.0, sodium 139, potassium 3.7, BUN of 35.7 creatinine of 1.7. His lipid panel is within normal limits. Vitamin B12 is 1174. Vitamin D level is low at 21 folate is 12.90 and the TSH is 0.909. Parathyroid hormone is elevated at 528. 02/21/2025 Patient is evaluated in follow-up on the medical floor. Patient continues to report right upper extremity weakness and numbness he does report that he felt this was brought on after receiving a Prolia injection last week. He was found to have urinary retention with postvoid residuals in the 400s. Patient is refusing a catheter at this time. Pending renal ultrasound. White blood cell count today 7.46, hemoglobin 9.2, MCV 109.5, BUN of 38 creatinine of 1.63 sodium level of 137. Calcium of 5.3. IgG, IgA, IgM within normal limits. ESR is elevated at 43. 02/22/2025 Patient is evaluated in follow-up of medical floor. He continues to report right upper extremity weakness and bilateral lower extremity weakness and paresthesias however he does state that his right upper extremity has more mobility today he is still not able to fully open up his hand and it remains quite swollen. Currently pending Lyme titers with neurology planning on this adding IV high-dose steroids or IVIG pending Lyme titer reports. Calcium level today is 5.3. Patient is currently on calcitriol as well as calcium carbonate tablets. Had abdomen pelvis CT which reveals moderate left hydronephrosis the urinary bladder is distended consider reevaluation after voiding. This could be due to a large urinary bladder with mass effect in the left ureter. Urinary bladder is measuring up to 17.7 x 1.2 cm. Anasarca worse in the left abdominal wall with a trace left pleural effusion. Moderate coronary artery atherosclerosis and moderate hiatal hernia. Renal function has improved. 02/23/2025 Patient is evaluated today in follow up on the medical floor. He reports improvement in his right upper extremity weakness. He states the parasthesias in his feet is improving and he was able to ambulate easier today. Lyme screening was negative. Indwelling interiano catheter was placed with 1.4 L of urine output. Bun 30, creatinine 1.38. Calcium 5.8. Was started on IV iron. 02/24/2025 Patient is evaluated in follow-up in the medical floor. His right upper extremity is significantly stronger and the swelling is gone. His serum is up to 5.9. He continues on a combination of oral calcitriol 0.25 mg daily, calcium carbonate 1000 mg twice daily as well as has been receiving 2 g of calcium gluconate daily. He is also on vitamin D supplementation. He has a Interiano catheter in place renal function today has normalized. Parasthesias in his legs are also better. Patient had a lumbar spine CT which revealed no acute fracture or traumatic subluxation of the lumbosacral spine. Multilevel lumbosacral spine degenerative changes as above. Sclerosis and endplate erosive changes at L4-L5 felt to most likely reflect chronic degenerative ideology. Recommend correlation without any prior outside imaging if available. Discitis as well as could have a similar appearance however and the need for further evaluation with MRI lumbar spine with IV contrast should be determined clinically. Severe stenosis cervical spine CT reveals no acute fracture or traumatic subluxation of the cervical spine. Multilevel cervical spine degenerative changes as above. Findings are most pronounced at C6-C7 with her suspected moderate spinal canal stenosis. Nonspecific groundglass attenuation opacities in the partially visualized right lung. REVIEW OF SYSTEMS: CONSTITUTIONAL: No fev acute fracture or traumatic subluxation of the lumbosa cral spine multilevel lumbosacral spine changeser, no malaise, no fatigue. HEENT: No recent visual problems or hearing problems. Denied any sore throat. CARDIOVASCULAR: No chest pain, orthopnea, PND, no palpitations, no syncope. PULMONARY: No shortness of breath, no cough, no hemoptysis. GASTROINTESTINAL: No diarrhea, no nausea, no vomiting, no abdominal pain. NEUROLOGICAL: No headaches, no weakness, no numbness. Reports right upper extremity weakness and hand numbness/parasthesias. Right hand swelling PHYSICAL EXAMINATION: GENERAL: The patient is alert and oriented x3, not in any acute distress. Well developed, well nourished. HEENT: Pupils are round and equally reacting to light. EOMI. No scleral icterus. No conjunctival pallor. Normocephalic, atraumatic. No pharyngeal erythema. No thyromegaly. CARDIOVASCULAR: S1 and S2 present. No murmurs, rubs, or gallops. PULMONARY: Chest is clear to auscultation, no wheezing or crackles. ABDOMEN: Soft, nontender, nondistended, normoactive bowel sounds. No palpable organomegaly. MUSCULOSKELETAL: No joint swelling or deformity. EXTREMITIES: No cyanosis, clubbing, or pedal edema. Strength and swelling to the right upper extremity are improving. NEUROLOGICAL: Gross neurological examination did not reveal any focal deficits. SKIN: No rashes. Assessment Right upper extremity weakness and parasthesias rule out acute ischemic stroke Bilateral lower extremity parasthesias Hypocalcemia likely from prolia injectin Urinary retention MARZENA from the urinary retention and obstructive uropathy Elevated PTH because of the hypocalcemia Moderate left hydronephrosis Macrocytic anemia Diabetes Mellitus insulin dependent with hyperglycemia Hypokalemia Hypomagnesemia COPD stable Hypertension Hyperlipidemia Parkinson's disorder Hypothyroidism Gastroesophageal reflux Heart failure with AICD Hx coronary artery disease with CABG in 1994 Prostate cancer post TURP Penile prosthetic Chronic pain GI prophylaxis: protonix DVT prophylaxis: Lovenox Full Code Plan Neurology following unable to get MRI secondary to the defibrillator Nephrology on consultation for the hypocalcemia Continue calcium carbonate twice daily Calcium gluconate 2 gram IVPB ordered Add calcitriol Insulin pump is currently discontinued Patient is on sliding scale insulin with ACHS accuchecks Continue lantus Home medications have been reordered as appropriate including aspirin 81 mg daily, plavix 75 mg daily and atorvastatin 20 mg HS. Orthopedic spinal surgery was consulted because of the mention of osteomyelitis and discitis on the lumbar spinal CT and pending consultation with recommendations. Again patient is unable to get an MRI because of his defibrillator. PT/OT consultation Repeat labs in the AM The impression and plan of care has been dictated by Halley Sneed Nurse Practitioner as directed. Dr. Craig MD I have performed a history and physical examination and medical decision making of this patient, discussed the same with the dictator, and agree with the dictators assessment and plan as written, documented as a scribe. Based on total visit time, I have performed more than 50% of this visit. Objective - Vital Signs Vital signs: Vital Signs Temp 98.2 F 02/24/25 08:00 Pulse 62 02/24/25 08:00 Resp 17 02/24/25 08:00 BP 119/60 02/24/25 08:00 Pulse Ox 95 02/24/25 08:00 FiO2 Intake & Output 02/23/25 02/24/25 02/24/25 18:59 06:59 18:59 Intake Total 1400 222 240 Output Total 2024 1800 600 Balance -625 -1578 -360 Intake: Oral 1400 222 240 Output: Urine 2024 1800 600 Uretheral (Interiano) 1400 600 Other: # Bowel Movements 1 1 - Labs CBC & Chem 7: 02/21/25 06:56 02/24/25 04:43 Labs: Abnormal Lab Results - Last 24 Hours (Table) 02/23/25 02/23/25 02/23/25 Range/Units 12:26 17:07 20:01 Est GFR (CKD-EPI) (>=60) Glucose (70-110) mg/dL POC Glucose (mg/dL) 250 H 272 H 149 H (70-110) mg/dL Calcium (8.7-10.3) mg/dL AST (14-35) U/L Total Protein (6.2-8.2) g/dL Albumin (3.8-4.9) g/dL Albumin/Globulin Ratio (1.60-3.17) Ratio 02/24/25 02/24/25 Range/Units 04:43 07:35 Est GFR (CKD-EPI) 50 L (>=60) Glucose 160 H (70-110) mg/dL POC Glucose (mg/dL) 184 H (70-110) mg/dL Calcium 5.9 A* (8.7-10.3) mg/dL AST 60 H (14-35) U/L Total Protein 4.6 L (6.2-8.2) g/dL Albumin 2.6 L (3.8-4.9) g/dL Albumin/Globulin Ratio 1.30 L (1.60-3.17) Ratio Assessment and Plan Time with Patient: Less than 30
[2025-02-24 17:19] LABS: Glucose,Whole Blood 58 mg/dL (70-110)
--- NOTE | 2025-02-24 17:27 | P.PN ---
Subjective Progress Note Date: 02/24/25 I am following up with the patient and he feels she is doing much better. His swelling over the right upper extremity is drastically better. Objective - Vital Signs Vital signs: Vital Signs Temp 98.4 F 02/24/25 12:24 Pulse 56 L 02/24/25 12:24 Resp 16 02/24/25 12:24 BP 108/51 02/24/25 12:24 Pulse Ox 97 02/24/25 12:24 FiO2 Intake & Output 02/23/25 02/24/25 02/24/25 18:59 06:59 18:59 Intake Total 1400 222 720 Output Total 2024 1800 600 Balance -625 -1578 120 Intake: Oral 1400 222 720 Output: Urine 2024 1800 600 Uretheral (Davison) 1400 600 Other: # Voids 1 # Bowel Movements 1 1 1 - Exam General: Lying in bed and is not in acute distress. Neuro: The patient is awake, alert, oriented to self, place and time. Is following simple commands. No aphasia. Pupils are round, equal and reactive to light. Visual diop are full to confrontation. No facial weakness. No dysarthria. Motor: Right upper extremity seems 4+. Otherwise strength is 5/5 throughout. Sensation is normal to touch. Cerebellar: Normal finger to nose Reflexes (right/left): Biceps 2+/2+; triceps0/0; brachioradialis 0-1/0-1; patellar0/0 (had bilateral surgeries prior); ankles0-1/0-1. - Labs CBC & Chem 7: 02/21/25 06:56 02/24/25 04:43 Labs: Abnormal Lab Results - Last 24 Hours (Table) 02/21/25 02/23/25 02/24/25 Range/Units 06:56 20:01 04:43 Est GFR (CKD-EPI) 50 L (>=60) Glucose 160 H (70-110) mg/dL POC Glucose (mg/dL) 149 H (70-110) mg/dL Calcium 5.9 A* (8.7-10.3) mg/dL AST 60 H (14-35) U/L Total Protein 4.6 L (6.2-8.2) g/dL Albumin 2.6 L (3.8-4.9) g/dL Albumin/Globulin Ratio 1.30 L (1.60-3.17) Ratio Vitamin B6 2 L (5-50) ug/L 02/24/25 02/24/25 02/24/25 Range/Units 07:35 12:10 17:18 Est GFR (CKD-EPI) (>=60) Glucose (70-110) mg/dL POC Glucose (mg/dL) 184 H 236 H 58 L (70-110) mg/dL Calcium (8.7-10.3) mg/dL AST (14-35) U/L Total Protein (6.2-8.2) g/dL Albumin (3.8-4.9) g/dL Albumin/Globulin Ratio (1.60-3.17) Ratio Vitamin B6 (5-50) ug/L Assessment and Plan Assessment: This is a 70-year-old male with longstanding history of type 1 diabetes, with diabetic neuropathy has presented with rapidly progressive painful weakness of right upper extremity. Overall pattern suggestive of diabetic plexopathy but cannot rule out due to hypocalcemia. Patient has milder symptoms in the left upper extremity as well, but the strength appears well-preserved. On CT lumbar reported cannot rule out discitis/osteomyelitis * Diabetic neuropathy, slightly worse. However the strength in the lower limbs are normal. * Hypocalcemia * Left hydronephrosis * Chronic renal disease * Coronary artery disease * Hypertension * Hyperlipidemia * Reported history of Parkinson's * Presence of defibrillator * Ex tobacco use Plan: * Patient cannot have MRI of the cervical spine/brachial plexus because of presence of defibrillator, consider ultrasound of the brachial plexus. * CT cervical spine: Multilevel cervical spine degenerative changes. Findings are most pronounced at C6-C7 where there is suspected moderate spinal canal stenosis. * CT lumbar spine: Sclerotic and endplate erosive changes at L4-L5 felt most likely to reflect chronic degenerative etiology, recommend correlation with prior outside imaging if available. Discitis/Osteomyelitis can have similar appearance however and the need for further evaluation with MRI lumbar spine with IV contrast should be determined clinically. * As a result I consulted orthopedic surgery team as well as infectious disease team. * Recommend EMG with NCS as outpatient of uppers and lowers. * Per my colleagues, Lumbar puncture was considered, but patient is on Plavix. * We will perform detailed blood tests as per order section-sed rate is elevated at 43, Lyme titers are pending, immunoglobulin levels are normal. * Per Dr. Lo and Dr. Caceres, patient may benefit from course of high-dose steroids versus IVIG. Lyme test is negative. Clinically the patient is improving after edema has resolved. I will hold off on IVIG or steroids who feels well infectious disease and orthopedics team states. * B12 1174, folate 12.90, TSH 0.909, Hemoglobin A1c 6.7 * Nephrology is on board. * Urology is consulted Time with Patient: Less than 30
[2025-02-24 17:31] LABS: Glucose,Whole Blood 59 mg/dL (70-110)
[2025-02-24 17:57] LABS: Glucose,Whole Blood 85 mg/dL (70-110)
[2025-02-24 20:13] LABS: Glucose,Whole Blood 235 mg/dL (70-110)
--- NOTE | 2025-02-24 22:35 | P.CONS ---
History of Present Illness - Reason for Consult Consult date: 02/24/[address] question of possible osteomyelitis/discitis Requesting physician: Pool Menendez - Chief Complaint Generalized weakness and numbness x days - History of Present Illness Patient is a 70-year-old male with a past medical history significant for Coronary Artery Disease (CAD), Heart Failure, COPD, Diabetes Mellitus, GERD/Reflux, Hyperlipidemia, Hypertension, Myocardial Infarction (NH), Neurologic Disorder, Osteoarthritis (OA), Prostate Disorder, Thyroid Disorder presenting to the hospital about a week ago for evaluation of unable to get up out of the bed and weakness patient also complaining of bilateral hand and feet pain and numbness from 2 days patient denies any history of any fall or any focal weakness and patient denies having any high-grade fever or chills on presentation to the hospital the patient was afebrile and no fever had recorded subsequently patient was not tachycardic hypotensive or hypoxic patient did have a normal white count of 9.17 BUN/creatinine was mildly elevated subsequent improved CRP is 4.1 Lyme disease serology negative patient did have a multiple workup including cervical and lumbar spine CT lumbar spine CT was reported with severe degenerative changes there was sclerosis and endplate erosive changes at L4-L5 felt to be most likely chronic however he also for the differential of possible discitis osteomyelitis for which ID was consulted for further management patient currently denies having any fever or any chills patient mention improvement in his generalized weakness as well as numbness symptoms and Denies any focal weakness, bowel or bladder problem Review of Systems Positive point and negatives has been mentioned in the HPI, complete review of systems was performed and all other systems are negative Past Medical History Past Medical History: Coronary Artery Disease (CAD), Heart Failure, COPD, Diabetes Mellitus, GERD/Reflux, Hyperlipidemia, Hypertension, Myocardial Infarction (NH), Neurologic Disorder, Osteoarthritis (OA), Prostate Disorder, Thyroid Disorder Additional Past Medical History / Comment(s): early parkinson's, has insulin pump Last Myocardial Infarction Date:: April 2017 History of Any Multi-Drug Resistant Organisms: None Reported Past Surgical History: AICD, Coronary Bypass/CABG, Hernia Repair, Joint Rep lacement, Orthopedic Surgery, Prostate Surgery Additional Past Surgical History / Comment(s): REPAIR OF DIAPHRAGM HOLE ([facility] HIATAL HERNIA REPAIRED. Cataract surgery, bilateral knee replacement, penile implant, acid reflux surgery, quadruple bypass 1995, prostate surgery, stomach and small intestine surgery Past Anesthesia/Blood Transfusion Reactions: No Reported Reaction Type of Cardiac Device: AICD Device Placement Date:: 2016 Past Psychological History: No Psychological Hx Reported Smoking Status: Former smoker Past Alcohol Use History: None Reported Additional Past Alcohol Use History / Comment(s): quit smoking 15 years ago; advised no alcohol 24 hrs prior to proc. Past Drug Use History: None Reported Additional Drug Use History / Comment(s): patient states he smoked marijuana in college but not currently. - Past Family History Mother Family Medical History: Cancer Father Family Medical History: Cancer Brother(s) Family Medical History: Cancer Medications and Allergies Home Medications Medication Instructions Recorded Confirmed Type Aspirin [Adult Low Dose Aspirin EC] 81 mg PO DAILY 12/23/20 02/19/25 History Atorvastatin [Lipitor] 20 mg PO HS 12/23/20 02/19/25 History Carbidopa-Levodopa 25-100 mg 1 tab PO QID 12/23/20 02/19/25 History [Sinemet 25-100 mg] Cholecalciferol (Vitamin D3) 125 mcg PO DAILY 12/23/20 02/19/25 History [Vitamin D3 (5000 Iu)] Clopidogrel Bisulfate [Plavix] 75 mg PO DAILY 12/23/20 02/19/25 History Fludrocortisone [Florinef] 0.05 mg PO BID 12/23/20 02/19/25 History Furosemide [Lasix] 20 mg PO DAILY 12/23/20 02/19/25 History Insulin Aspart (For Pump) [NovoLOG 0.01 unit SQ-PUMP CONTINUOUS 12/23/2009/03 History (For Pump)] Isosorbide Mononitrate [Isosorbide 30 mg PO DAILY 12/23/20 02/19/25 History Mononitrate ER] Magnesium Oxide 800 mg PO BID 12/23/20 02/19/25 History Metoprolol Tartrate [Lopressor] 50 mg PO BID 12/23/20 02/19/25 History Potassium Chloride [Klor-Con M10] 20 meq PO BID 12/23/20 02/19/25 History Tamsulosin [Flomax] 0.4 mg PO DAILY 12/23/20 02/19/25 History lisinopriL [Zestril] 2.5 mg PO DAILY 12/23/20 02/19/25 History rOPINIRole HCL [Requip] 2 mg PO DAILY 12/23/20 02/19/25 History Docusate [Colace] 100 mg PO BID #60 capsule 06/16/22 02/19/25 Rx levETIRAcetam [Keppra] 1,000 mg PO HS 11/24/22 02/19/25 History Albuterol Inhaler [Ventolin Hfa 2 puff INHALATION RT-Q4H PRN 11/17/24 02/19/25 History Inhaler] Ferrous Sulfate [Iron (65 MG 325 mg PO DAILY 11/17/24 02/19/25 History Elemental)] Levothyroxine Sodium [Synthroid] 50 mcg PO DAILY 11/17/24 02/19/25 History Zaleplon [Sonata] 5 mg PO HS 11/17/24 02/19/25 History traMADol HCL 50 mg PO BID PRN 11/17/24 02/19/25 History Gabapentin 600 mg PO TID 02/19/25 02/19/25 History Nitroglycerin Sl Tabs [Nitrostat] 0.4 mg SUBLINGUAL Q5M PRN 02/19/25 02/19/25 History Pantoprazole Sodium [Protonix] 20 mg PO DAILY 02/19/25 02/19/25 History Denosumab [Prolia] 02/21/25 History Allergies Allergy/AdvReac Type Severity Reaction Status Date / Time No Known Allergies Allergy Verified 02/19/25 09:54 Physical Exam Vitals: Vital Signs Temp Pulse Resp BP Pulse Ox 02/24/25 12:24 98.4 F 56 L 16 108/51 97 02/24/25 08:00 98.2 F 62 17 119/60 95 02/24/25 01:10 97.8 F 64 15 114/58 96 02/23/25 20:08 98.2 F 59 L 16 101/50 93 L Intake and Output 02/23/25 02/24/25 02/24/25 22:59 06:59 14:59 Intake Total 1160 222 240 Output Total 625 1800 600 Balance 102 -2715 -035 Intake: Oral 1160 222 240 Output: Urine 625 1800 600 Uretheral (Davison) 600 Other: # Bowel Movements 1 GENERAL DESCRIPTION: Elderly male lying in bed, no distress. No tachypnea or accessory muscle of respiration use. HEENT: Shows Pallor , no scleral icterus. Oral mucous membrane is dry. NECK: Trachea central, no thyromegaly. LUNGS: Unlabored breathing. Clear to auscultation anteriorly. No wheeze or crackle. HEART: S1, S2, regular rate and rhythm. No loud murmur ABDOMEN: Soft, no tenderness , guarding or rigidity, no organomegaly EXTREMITIES: No edema of feet. No spinal tenderness was noticed SKIN: No rash, no masses palpable. NEUROLOGICAL: The patient is awake, alert, oriented x3, mood and affect normal. Results CBC & Chem 7: 02/21/25 06:56 02/24/25 04:43 Labs: Abnormal Lab Results - Last 24 Hours (Table) 02/21/25 02/23/25 02/23/25 Range/Units 06:56 17:07 20:01 Est GFR (CKD-EPI) (>=60) Glucose (70-110) mg/dL POC Glucose (mg/dL) 272 H 149 H (70-110) mg/dL Calcium (8.7-10.3) mg/dL AST (14-35) U/L Total Protein (6.2-8.2) g/dL Albumin (3.8-4.9) g/dL Albumin/Globulin Ratio (1.60-3.17) Ratio Vitamin B6 2 L (5-50) ug/L 02/24/25 02/24/25 02/24/25 Range/Units 04:43 07:35 12:10 Est GFR (CKD-EPI) 50 L (>=60) Glucose 160 H (70-110) mg/dL POC Glucose (mg/dL) 184 H 236 H (70-110) mg/dL Calcium 5.9 A* (8.7-10.3) mg/dL AST 60 H (14-35) U/L Total Protein 4.6 L (6.2-8.2) g/dL Albumin 2.6 L (3.8-4.9) g/dL Albumin/Globulin Ratio 1.30 L (1.60-3.17) Ratio Vitamin B6 (5-50) ug/L Assessment and Plan (1) Abnormal CT scan, lumbar spine Current Visit: Yes Status: Acute Code(s): R93.7 - ABNORMAL FINDINGS ON DIAGNOSTIC IMAGING OF PRT MS SYS SNOMED Code(s): 896702750 Plan: 1patient with an abnormal CT of the lumbar spine concerning for possible L4-5 discitis/osteomyelitis in this patient clinically not behaving as discitis or os teomyelitis with no fever elevated white count did not have any spinal tenderness on clinical examination or any swelling or redness at the lumbosacral spine however will need to be ruled out and investigated further 2-we will order MRI of the lumbar spine with contrast and will check sed rate 3-we will hold on adding any systemic antibiotic therapy at this point to increase the yield of any culture that may need to be done if the MRI is also abnormal Multiple question concern answered We will follow on clinical condition and cultures to further adjust medication if needed Thank you for this consultation we will follow the patient along with you Dictation was produced using [employer] dictation software. please excuse any grammatical, word or spelling errors. Time with Patient: Greater than 30
[2025-02-25 01:53] LABS: Glucose,Whole Blood 50 mg/dL (70-110)
[2025-02-25 02:06] LABS: Glucose,Whole Blood 69 mg/dL (70-110)
[2025-02-25 02:28] LABS: Glucose,Whole Blood 93 mg/dL (70-110)
[2025-02-25 07:57] LABS: Glucose,Whole Blood 112 mg/dL (70-110)
[2025-02-25 08:20] LABS: Magnesium 1.7 mg/dL (1.5-2.4)
[2025-02-25 08:47] LABS: BUN/Creat Ratio 18.83 Ratio (12.00-20.00); Blood Urea Nitrogen 22.6 mg/dL (9.0-27.0); Calcium 5.9 mg/dL (8.7-10.3); Carbon Dioxide 26.5 mmol/L (21.6-31.8); Chloride 108 mmol/L (96-109); Glucose 124 mg/dL (70-110); Potassium 3.6 mmol/L (3.5-5.5); Sodium 144 mmol/L (135-145)
--- NOTE | 2025-02-25 10:19 | P.PN ---
Subjective Patient is seen in follow-up for hypocalcemia and acute kidney injury on chronic kidney disease. Oral intake fair. Nonoliguric. Vital signs are stable. General: No acute distress. HEENT: Head exam is unremarkable. LUNGS: No audible rhonchi or wheezes. HEART: Rate and Rhythm are regular. ABDOMEN: Nontender. EXTREMITITES: 1+ edema. Objective - Vital Signs Vital signs: Vital Signs Temp 98.3 F 02/25/25 07:16 Pulse 56 L 02/25/25 07:16 Resp 17 02/25/25 07:16 BP 118/67 02/25/25 07:16 Pulse Ox 96 02/25/25 07:16 FiO2 Intake & Output 02/24/25 02/25/25 02/25/25 18:59 06:59 18:59 Intake Total 3200 Output Total 1200 2450 1000 Balance 2000 -2450 -1000 Intake: Oral 3200 Output: Urine 1200 2450 1000 Uretheral (Davison) 600 Other: # Voids 1 # Bowel Movements 1 1 1 - Labs CBC & Chem 7: 02/21/25 06:56 02/25/25 05:51 Labs: Abnormal Lab Results - Last 24 Hours (Table) 02/21/25 02/24/25 02/24/25 Range/Units 06:56 12:10 17:18 ESR (0-20) mm/Hr Glucose (70-110) mg/dL POC Glucose (mg/dL) 236 H 58 L (70-110) mg/dL Calcium (8.7-10.3) mg/dL C-Reactive Protein (<1.0) mg/dL Vitamin B6 2 L (5-50) ug/L 02/24/25 02/24/25 02/24/25 Range/Units 17:30 17:34 20:11 ESR (0-20) mm/Hr Glucose (70-110) mg/dL POC Glucose (mg/dL) 59 L 235 H (70-110) mg/dL Calcium (8.7-10.3) mg/dL C-Reactive Protein 4.1 H (<1.0) mg/dL Vitamin B6 (5-50) ug/L 02/25/25 02/25/25 02/25/25 Range/Units 01:49 02:03 05:51 ESR (0-20) mm/Hr Glucose 124 H (70-110) mg/dL POC Glucose (mg/dL) 50 L 69 L (70-110) mg/dL Calcium 5.9 A* (8.7-10.3) mg/dL C-Reactive Protein (<1.0) mg/dL Vitamin B6 (5-50) ug/L 02/25/25 02/25/25 Range/Units 05:51 07:52 ESR 21 H (0-20) mm/Hr Glucose (70-110) mg/dL POC Glucose (mg/dL) 112 H (70-110) mg/dL Calcium (8.7-10.3) mg/dL C-Reactive Protein (<1.0) mg/dL Vitamin B6 (5-50) ug/L Assessment and Plan Plan: Assessment: 1. Acute kidney injury secondary to ATN and urinary retention. Creatinine peaked at 1.7 this admission and is improved to 1.2 today. 2. Chronic kidney disease stage IIIa with baseline creatinine 1.2-1.4 secondary to nephrosclerosis. 3. Hypocalcemia secondary to Prolia. Was also on loop diuretic outpatient. Vitamin D noted to be low as well. PTH appropriately elevated at 528. TSH normal. Vitamin D level 21. 4. Urinary retention. Left-sided hydronephrosis noted on CT. On Flomax. Urology following. 5. Diabetes mellitus. 6. Hypomagnesemia from PPI use and loop diuretics. On oral magnesium oxide. 7. Anemia. Iron deficiency noted. Plan: Maintain Tums and vitamin D. 2 g IV calcium gluconate today. Increased dose of calcitriol to 1 mcg twice daily. Maintain IV iron.
[2025-02-25] MEDS: CALCIUM GLUCONATE IN NACL 2 GM in SALINE 1 100ML.BAG IVPB ONE (11:39)
[2025-02-25 12:09] LABS: Glucose,Whole Blood 337 mg/dL (70-110)
--- NOTE | 2025-02-25 14:25 | P.PN ---
Subjective Progress Note Date: 02/25/25 This is a pleasant 70-year-old male with medical history of coronary artery disease with prior bypass grafting in 1994, heart failure status post AICD, COPD, diabetes mellitus, hypertension, hyperlipidemia, hypothyroidism, acid reflux, early Parkinson's. Patient is diabetic maintained on insulin pump. Olaf hartley comes into the hospital secondary to complaints of bilateral hand and feet pain/numbness ongoing over the last couple days that have a worsening in nature. Additionally he reports right upper extremity weakness that began on Sunday. He is also having trouble ambulating. He has been very shaky having a difficult time opening his pill bottles and has been spilling his drinks due to worsening tremors. He has not have any chest pain or shortness of breath he denies any recent illness. He reports no speech or swallowing abnormalities. His grandmother has history of massive stroke. He lives at home by himself and usually gets around fine. Denies any alcohol, tobacco, or illicit substance use. His insulin pump was on but fell off while in the triage. EKG reveals atrial fibrillation with heart rate of 87. Initial blood work reveals a white blood cell count of 13.83, hemoglobin 10.5, BUN of 25 creatinine 1.24, calcium of 5.4, magnesium 1.5. Patient received IV calcium magnesium and potassium supplementation. He was admitted to the hospital for the hypocalcemia with nephrology consultation. 02/20/2025 Patient is evaluated in follow-up in the medical floor. Patient continues to report significant right upper extremity weakness and hand numbness. A venous Doppler was negative for acute DVT. We will check cervical imaging and currently pending neurology consultation. He was able to ambulate with physical therapy in the hallway. He is having a difficult time with meals as his right upper extremity is essentially unable to hold silverware or food. His blood work today reveals a white blood cell count 9.17, hemoglobin 8.8, MCV of 110.3, platelet count of 117. His magnesium is 1.8 calcium today is 5.0, sodium 139, potassium 3.7, BUN of 35.7 creatinine of 1.7. His lipid panel is within normal limits. Vitamin B12 is 1174. Vitamin D level is low at 21 folate is 12.90 and the TSH is 0.909. Parathyroid hormone is elevated at 528. 02/21/2025 Patient is evaluated in follow-up on the medical floor. Patient continues to report right upper extremity weakness and numbness he does report that he felt this was brought on after receiving a Prolia injection last week. He was found to have urinary retention with postvoid residuals in the 400s. Patient is refusing a catheter at this time. Pending renal ultrasound. White blood cell count today 7.46, hemoglobin 9.2, MCV 109.5, BUN of 38 creatinine of 1.63 sodium level of 137. Calcium of 5.3. IgG, IgA, IgM within normal limits. ESR is elevated at 43. 02/22/2025 Patient is evaluated in follow-up of medical floor. He continues to report right upper extremity weakness and bilateral lower extremity weakness and paresthesias however he does state that his right upper extremity has more mobility today he is still not able to fully open up his hand and it remains quite swollen. Currently pending Lyme titers with neurology planning on this adding IV high-dose steroids or IVIG pending Lyme titer reports. Calcium level today is 5.3. Patient is currently on calcitriol as well as calcium carbonate tablets. Had abdomen pelvis CT which reveals moderate left hydronephrosis the urinary bladder is distended consider reevaluation after voiding. This could be due to a large urinary bladder with mass effect in the left ureter. Urinary bladder is measuring up to 17.7 x 1.2 cm. Anasarca worse in the left abdominal wall with a trace left pleural effusion. Moderate coronary artery atherosclerosis and moderate hiatal hernia. Renal function has improved. 02/23/2025 Patient is evaluated today in follow up on the medical floor. He reports improvement in his right upper extremity weakness. He states the parasthesias in his feet is improving and he was able to ambulate easier today. Lyme screening was negative. Indwelling interiano catheter was placed with 1.4 L of urine output. Bun 30, creatinine 1.38. Calcium 5.8. Was started on IV iron. 02/24/2025 Patient is evaluated in follow-up in the medical floor. His right upper extremity is significantly stronger and the swelling is gone. His serum is up to 5.9. He continues on a combination of oral calcitriol 0.25 mg daily, calcium carbonate 1000 mg twice daily as well as has been receiving 2 g of calcium gluconate daily. He is also on vitamin D supplementation. He has a Interiano catheter in place renal function today has normalized. Parasthesias in his legs are also better. Patient had a lumbar spine CT which revealed no acute fracture or traumatic subluxation of the lumbosacral spine. Multilevel lumbosacral spine degenerative changes as above. Sclerosis and endplate erosive changes at L4-L5 felt to most likely reflect chronic degenerative ideology. Recommend correlation without any prior outside imaging if available. Discitis as well as could have a similar appearance however and the need for further evaluation with MRI lumbar spine with IV contrast should be determined clinically. Severe stenosis cervical spine CT reveals no acute fracture or traumatic subluxation of the cervical spine. Multilevel cervical spine degenerative changes as above. Findings are most pronounced at C6-C7 with her suspected moderate spinal canal stenosis. Nonspecific groundglass attenuation opacities in the partially visualized right lung. 02/25/2025 Patient is lying in the bed. Awake alert and oriented. No complaints of chest pain or shortness of breath. No complaints of back pain. No complaints of lower extremity weakness. Patient has been afebrile. Calcium level at 5.9 today. Patient was given calcium gluconate 2 g and vitamin D supplementation. Otherwise renal function normalized with creatinine level 1.2. Due to abnormal CT lumbar spine as above, MRI of the lumbar spine was ordered to rule out discitis. Laboratory data reviewed. Magnesium 1.7 and blood sugar elevated this afternoon. REVIEW OF SYSTEMS: CONSTITUTIONAL: No fev acute fracture or traumatic subluxation of the lumbosacral spine multilevel lumbosacral spine changeser, no malaise, no fatigue. HEENT: No recent visual problems or hearing problems. Denied any sore throat. CARDIOVASCULAR: No chest pain, orthopnea, PND, no palpitations, no syncope. PULMONARY: No shortness of breath, no cough, no hemoptysis. GASTROINTESTINAL: No diarrhea, no nausea, no vomiting, no abdominal pain. NEUROLOGICAL: No headaches, no weakness, no numbness. Reports right upper extremity weakness and hand numbness/parasthesias. Right hand swelling PHYSICAL EXAMINATION: GENERAL: The patient is alert and oriented x3, not in any acute distress. Well developed, well nourished. HEENT: Pupils are round and equally reacting to light. EOMI. No scleral icterus. No conjunctival pallor. Normocephalic, atraumatic. No pharyngeal erythema. No thyromegaly. CARDIOVASCULAR: S1 and S2 present. No murmurs, rubs, or gallops. PULMONARY: Chest is clear to auscultation, no wheezing or crackles. ABDOMEN: Soft, nontender, nondistended, normoactive bowel sounds. No palpable organomegaly. MUSCULOSKELETAL: No joint swelling or deformity. EXTREMITIES: No cyanosis, clubbing, or pedal edema. Strength and swelling to the right upper extremity are improving. NEUROLOGICAL: Gross neurological examination did not reveal any focal deficits. SKIN: No rashes. Assessment Right upper extremity weakness and parasthesias likely due to diabetic neuropathy. CT head is negative for acute CVA. MRI could not be done due to defibrillator. Bilateral lower extremity parasthesias Severe hypocalcemia likely from prolia injectin, vitamin D deficiency and acute kidney injury Urinary retention MARZENA from the urinary retention and obstructive uropathy Elevated PTH because of the hypocalcemia Moderate left hydronephrosis Macrocytic anemia Diabetes Mellitus insulin dependent with hyperglycemia Hypokalemia Hypomagnesemia COPD stable Hypertension Hyperlipidemia Parkinson's disorder Hypothyroidism Gastroesophageal reflux Ischemic cardiomyopathy with AICD Hx coronary artery disease with CABG in 1994 Prostate cancer post TURP Penile prosthetic Chronic pain GI prophylaxis: protonix DVT prophylaxis: Lovenox Full Code Plan Neurology following unable to get MRI secondary to the defibrillator Nephrology on consultation for the hypocalcemia Continue calcium carbonate twice daily Calcium gluconate 2 gram IVPB ordered Add calcitriol Insulin pump is currently discontinued Patient is on sliding scale insulin with ACHS accuchecks Continue lantus Home medications have been reordered as appropriate including aspirin 81 mg daily, plavix 75 mg daily and atorvastatin 20 mg HS. Orthopedic spinal surgery was consulted because of the mention of osteomyelitis and discitis on the lumbar spinal CT ID is on board. Again patient is unable to get an MRI because of his defibrillator. PT/OT consultation Repeat labs in the AM anticipate discharge once calcium level is normalized. Objective - Vital Signs Vital signs: Vital Signs Temp 98.3 F 02/25/25 07:16 Pulse 56 L 02/25/25 07:16 Resp 17 02/25/25 07:16 BP 118/67 02/25/25 07:16 Pulse Ox 96 02/25/25 07:16 FiO2 Intake & Output 02/24/25 02/25/25 02/25/25 18:59 06:59 18:59 Intake Total 3200 Output Total 1200 2450 1000 Balance 1999 -2450 -1000 Intake: Oral 3200 Output: Urine 1200 2450 1000 Uretheral (Interiano) 600 Other: # Voids 1 # Bowel Movements 1 1 1 - Labs CBC & Chem 7: 02/21/25 06:56 02/25/25 05:51 Labs: Abnormal Lab Results - Last 24 Hours (Table) 02/24/25 02/24/25 02/24/25 Range/Units 17:18 17:30 17:34 ESR (0-20) mm/Hr Glucose (70-110) mg/dL POC Glucose (mg/dL) 58 L 59 L (70-110) mg/dL Calcium (8.7-10.3) mg/dL C-Reactive Protein 4.1 H (<1.0) mg/dL 02/24/25 02/25/25 02/25/25 Range/Units 20:11 01:49 02:03 ESR (0-20) mm/Hr Glucose (70-110) mg/dL POC Glucose (mg/dL) 235 H 50 L 69 L (70-110) mg/dL Calcium (8.7-10.3) mg/dL C-Reactive Protein (<1.0) mg/dL 02/25/25 02/25/25 02/25/25 Range/Units 05:51 05:51 07:52 ESR 21 H (0-20) mm/Hr Glucose 124 H (70-110) mg/dL POC Glucose (mg/dL) 112 H (70-110) mg/dL Calcium 5.9 A* (8.7-10.3) mg/dL C-Reactive Protein (<1.0) mg/dL 02/25/25 Range/Units 12:07 ESR (0-20) mm/Hr Glucose (70-110) mg/dL POC Glucose (mg/dL) 337 H (70-110) mg/dL Calcium (8.7-10.3) mg/dL C-Reactive Protein (<1.0) mg/dL
--- NOTE | 2025-02-25 15:22 | P.PN ---
Subjective Progress Note Date: 02/25/25 I am following-up with the patient and feels he is doing better. Objective - Vital Signs Vital signs: Vital Signs Temp 98.2 F 02/25/25 14:00 Pulse 57 L 02/25/25 14:00 Resp 18 02/25/25 14:00 BP 121/64 02/25/25 14:00 Pulse Ox 96 02/25/25 07:16 FiO2 Intake & Output 02/24/25 02/25/25 02/25/25 18:59 06:59 18:59 Intake Total 3200 Output Total 1200 2450 1000 Balance 2000 -2450 -1000 Intake: Oral 3200 Output: Urine 1200 2450 1000 Uretheral (Davison) 600 Other: # Voids 1 # Bowel Movements 1 1 1 - Exam General: Lying in bed and is not in acute distress. Neuro: The patient is awake, alert, oriented to self, place and time. Is following simple commands. No aphasia. Pupils are round, equal and reactive to light. Visual diop are full to confrontation. No facial weakness. No dysarthria. Motor: Right upper extremity seems 4+. Otherwise strength is 5/5 throughout. Sensation is normal to touch. Cerebellar: Normal finger to nose Reflexes (right/left): Biceps 2+/2+; triceps0/0; brachioradialis 0-1/0-1; patellar0/0 (had bilateral surgeries prior); ankles0-1/0-1. - Labs CBC & Chem 7: 02/21/25 06:56 02/25/25 05:51 Labs: Abnormal Lab Results - Last 24 Hours (Table) 02/24/25 02/24/25 02/24/25 Range/Units 17:18 17:30 17:34 ESR (0-20) mm/Hr Glucose (70-110) mg/dL POC Glucose (mg/dL) 58 L 59 L (70-110) mg/dL Calcium (8.7-10.3) mg/dL C-Reactive Protein 4.1 H (<1.0) mg/dL 02/24/25 02/25/25 02/25/25 Range/Units 20:11 01:49 02:03 ESR (0-20) mm/Hr Glucose (70-110) mg/dL POC Glucose (mg/dL) 235 H 50 L 69 L (70-110) mg/dL Calcium (8.7-10.3) mg/dL C-Reactive Protein (<1.0) mg/dL 02/25/25 02/25/25 02/25/25 Range/Units 05:51 05:51 07:52 ESR 21 H (0-20) mm/Hr Glucose 124 H (70-110) mg/dL POC Glucose (mg/dL) 112 H (70-110) mg/dL Calcium 5.9 A* (8.7-10.3) mg/dL C-Reactive Protein (<1.0) mg/dL 02/25/25 Range/Units 12:07 ESR (0-20) mm/Hr Glucose (70-110) mg/dL POC Glucose (mg/dL) 337 H (70-110) mg/dL Calcium (8.7-10.3) mg/dL C-Reactive Protein (<1.0) mg/dL Assessment and Plan Assessment: This is a 70-year-old male with longstanding history of type 1 diabetes, with diabetic neuropathy has presented with rapidly progressive painful weakness of right upper extremity. Overall pattern suggestive of diabetic plexopathy but c annot rule out due to hypocalcemia. Patient has milder symptoms in the left upper extremity as well, but the strength appears well-preserved. On CT lumbar reported cannot rule out discitis/osteomyelitis * Diabetic neuropathy, slightly worse. However the strength in the lower limbs are normal. * Hypocalcemia * Left hydronephrosis * Chronic renal disease * Coronary artery disease * Hypertension * Hyperlipidemia * Reported history of Parkinson's * Presence of defibrillator * Ex tobacco use Plan: * Patient cannot have MRI of the cervical spine/brachial plexus because of presence of defibrillator, consider ultrasound of the brachial plexus. * CT cervical spine: Multilevel cervical spine degenerative changes. Findings are most pronounced at C6-C7 where there is suspected moderate spinal canal stenosis. * CT lumbar spine: Sclerotic and endplate erosive changes at L4-L5 felt most likely to reflect chronic degenerative etiology, recommend correlation with prior outside imaging if available. Discitis/Osteomyelitis can have similar appearance however and the need for further evaluation with MRI lumbar spine with IV contrast should be determined clinically. * As a result I consulted orthopedic surgery team as well as infectious disease team. * Recommend EMG with NCS as outpatient of uppers and lowers. * Per my colleagues, Lumbar puncture was considered, but patient is on Plavix. * We will perform detailed blood tests as per order section-sed rate is elevated at 43, Lyme titers are pending, immunoglobulin levels are normal. * Per Dr. Lo and Dr. Caceres, patient may benefit from course of high-dose steroids versus IVIG. Lyme test is negative. Clinically the patient is improving after edema has resolved. I will hold off on IVIG or steroids since patient is improving and will find out input from infectious disease and orthopedics team. * B12 1174, folate 12.90, TSH 0.909, Hemoglobin A1c 6.7 * Nephrology is on board. * Urology is consulted Time with Patient: Less than 30
[2025-02-25 17:12] LABS: Glucose,Whole Blood 206 mg/dL (70-110)
[2025-02-25 20:11] LABS: Glucose,Whole Blood 106 mg/dL (70-110)
[2025-02-25 20:26] LABS: Appearance,Urine Clear (Clear); Bacteria,Urine Rare /hpf; Bilirubin,Urine Negative (Negative); Blood,Urine Negative (Negative); Color,Urine Colorless; Glucose,Urine (UA) Negative (Negative); Ketones,Urine Negative (Negative); Leukocyte Esterase,Urine Trace (Negative); Mucus,Urine Rare /hpf; Nitrite,Urine Negative (Negative); Protein,Urine Negative (Negative); RBC,Urine 1 /hpf (0-5); Urobilinogen,Urine <2.0 mg/dL (<2.0); WBC,Urine 2 /hpf (0-5)
[2025-02-25 21:05] LABS: Glucose,Whole Blood 77 mg/dL (70-110)
[2025-02-25 21:26] LABS: Glucose,Whole Blood 88 mg/dL (70-110)
[2025-02-25 22:20] LABS: Glucose,Whole Blood 103 mg/dL (70-110)
[2025-02-26 02:01] LABS: Glucose,Whole Blood 111 mg/dL (70-110)
[2025-02-26 07:26] LABS: Glucose,Whole Blood 72 mg/dL (70-110)
[2025-02-26 08:05] VITALS: TEMP 97.4
[2025-02-26 08:35] LABS: Magnesium 1.7 mg/dL (1.5-2.4)
[2025-02-26 08:41] LABS: Albumin 2.7 g/dL (3.8-4.9); BUN/Creat Ratio 14.14 Ratio (12.00-20.00); Blood Urea Nitrogen 19.8 mg/dL (9.0-27.0); Calcium 6.3 mg/dL (8.7-10.3); Carbon Dioxide 26.4 mmol/L (21.6-31.8); Chloride 110 mmol/L (96-109); Glucose 72 mg/dL (70-110); Potassium 3.4 mmol/L (3.5-5.5); Sodium 145 mmol/L (135-145)
--- NOTE | 2025-02-26 11:07 | P.PN ---
Subjective Patient is seen in follow-up for hypocalcemia and acute kidney injury on chronic kidney disease. Oral intake fair. Nonoliguric. Calcium level better. Renal function fairly stable. Vital signs are stable. General: No acute distress. HEENT: Head exam is unremarkable. LUNGS: No audible rhonchi or wheezes. HEART: Rate and Rhythm are regular. ABDOMEN: Nontender. EXTREMITITES: 1+ edema. Objective - Vital Signs Vital signs: Vital Signs Temp 97.4 F L 02/26/25 07:21 Pulse 76 02/26/25 08:00 Resp 18 02/26/25 08:00 BP 112/59 02/26/25 07:21 Pulse Ox 99 02/26/25 07:21 FiO2 Intake & Output 02/25/25 02/26/25 02/26/25 18:59 06:59 18:59 Intake Total 580 Output Total 2600 2600 450 Balance -2600 -2600 130 Intake: Oral 580 Output: Urine 2600 2600 450 Uretheral (Davison) 450 Other: # Bowel Movements 2 2 1 - Labs CBC & Chem 7: 02/21/25 06:56 02/26/25 06:24 Labs: Abnormal Lab Results - Last 24 Hours (Table) 02/25/25 02/25/25 02/25/25 Range/Units 12:07 17:10 18:23 Potassium (3.5-5.5) mmol/L Chloride (96-109) mmol/L Est GFR (CKD-EPI) (>=60) POC Glucose (mg/dL) 337 H 206 H (70-110) mg/dL Calcium (8.7-10.3) mg/dL Albumin (3.8-4.9) g/dL Ur Leukocyte Esterase Trace H (Negative) Urine Bacteria Rare H (None) /hpf Urine Mucus Rare H (None) /hpf 02/26/25 02/26/25 Range/Units 01:57 06:24 Potassium 3.4 L (3.5-5.5) mmol/L Chloride 110 H (96-109) mmol/L Est GFR (CKD-EPI) 54 L (>=60) POC Glucose (mg/dL) 111 H (70-110) mg/dL Calcium 6.3 A* (8.7-10.3) mg/dL Albumin 2.7 L (3.8-4.9) g/dL Ur Leukocyte Esterase (Negative) Urine Bacteria (None) /hpf Urine Mucus (None) /hpf Assessment and Plan Plan: Assessment: 1. Acute kidney injury secondary to ATN and urinary retention. Creatinine peaked at 1.7 this admission and is now fairly stable in the range of 1.2-1.4. 2. Chronic kidney disease stage IIIa with baseline creatinine 1.2-1.4 secondary to nephrosclerosis. 3. Hypocalcemia secondary to Prolia. Was also on loop diuretic outpatient. Vi tamin D noted to be low as well. PTH appropriately elevated at 528. TSH normal. Vitamin D level 21. Calcium level improving. Corrected calcium 7.0 today. 4. Urinary retention. Left-sided hydronephrosis noted on CT. On Flomax. Urology following. 5. Diabetes mellitus. 6. Hypomagnesemia from PPI use and loop diuretics. On oral magnesium oxide. Stable. 7. Anemia. Iron deficiency noted. Status post IV iron this admission. 8. Hypokalemia. Can be from [facility]. Plan: Maintain Tums and vitamin D. 2 g IV calcium gluconate today. Maintain calcitriol. Repeat CMP and magnesium level 2 to 3 days postdischarge. Follow-up outpatient 1 week postdischarge.
[2025-02-26] MEDS: CALCIUM GLUCONATE IN NACL 2 GM in SALINE 1 100ML.BAG IVPB ONE (11:49)
[2025-02-26] MEDS: POTASSIUM CHLORIDE ER 20 MEQ TAB.ER PO STA (11:49)
--- NOTE | 2025-02-26 11:59 | P.CNOR ---
History of Present Illness - [facility] Consult date: 02/26/25 Requesting physician: Pool Menendez Consult reason: low back pain, other (Rule out osteomyelitis/discitis) History of present illness: Patient is a very pleasant 70-year-old male who is seen examined for his lumbar spine after consultation was placed for further evaluate for possible discitis after further imaging was obtained. Patient admits to some chronic low back pain but states he switched to a mattress 2 to 3 years ago and since that time his back pain is actually better controlled. He does not have any acute back pain currently. He is not complaining of lower extremity weakness or radiculopathy. He is able to perform good active range of motion of his lower extremities independently without difficulty. Imaging was reviewed by infectious disease who felt it was unlikely the patient had osteomyelitis/discitis. Imaging was also reviewed by Dr. Marv Benavides who also felt it was unlikely the patient had osteomyelitis discitis. He does have degenerative change at his lumbar spine. Patient denies fever or chills. He does not have an elevated WBC. Patient is currently seen at the bedside with medicine present. He has had some difficulty with his calcium levels. Medicine may be planning to clear the patient for discharge to a rehabilitation facility today pending clearance by other providers and pending lab results. Patient is having some difficulty with his bladder. He has seen urology. He has a Davison catheter intact. He is discharging to the rehabilitation facility with the catheter intact. He is scheduled for follow-up evaluation with urology in the outpatient setting next week. He was recently started on Prolia for osteoporosis. Patient is being seen by multiple medical providers including medicine, infectious disease, neurology, urology and nephrology. Past Medical History Past Medical History: Coronary Artery Disease (CAD), Heart Failure, COPD, Diabetes Mellitus, GERD/Reflux, Hyperlipidemia, Hypertension, Myocardial Infarction ([place]), Neurologic Disorder, Osteoarthritis (OA), Prostate Disorder, Thyroid Disorder Additional Past Medical History / Comment(s): early parkinson's, has insulin pump Last Myocardial Infarction Date:: April 2017 History of Any Multi-Drug Resistant Organisms: None Reported Past Surgical History: AICD, Coronary Bypass/CABG, Hernia Repair, Joint Rep lacement, Orthopedic Surgery, Prostate Surgery Additional Past Surgical History / Comment(s): REPAIR OF DIAPHRAGM HOLE ([facility] HIATAL HERNIA REPAIRED. Cataract surgery, bilateral knee replacement, penile implant, acid reflux surgery, quadruple bypass 1994, prostate surgery, stomach and small intestine surgery Past Anesthesia/Blood Transfusion Reactions: No Reported Reaction Type of Cardiac Device: AICD Device Placement Date:: 2016 Past Psychological History: No Psychological Hx Reported Smoking Status: Former smoker Past Alcohol Use History: None Reported Additional Past Alcohol Use History / Comment(s): quit smoking 15 years ago; advised no alcohol 24 hrs prior to proc. Past Drug Use History: None Reported Additional Drug Use History / Comment(s): patient states he smoked marijuana in college but not currently. - Past Family History Mother Family Medical History: Cancer Father Family Medical History: Cancer Brother(s) Family Medical History: Cancer Medications and Allergies Home Medications Medication Instructions Recorded Confirmed Type Aspirin [Adult Low Dose Aspirin EC] 81 mg PO DAILY 12/23/20 02/19/25 History Atorvastatin [Lipitor] 20 mg PO HS 12/23/20 02/19/25 History Carbidopa-Levodopa 25-100 mg 1 tab PO QID 12/23/20 02/19/25 History [Sinemet 25-100 mg] Cholecalciferol (Vitamin D3) 125 mcg PO DAILY 12/23/20 02/19/25 History [Vitamin D3 (5000 Iu)] Clopidogrel Bisulfate [Plavix] 75 mg PO DAILY 12/23/20 02/19/25 History Fludrocortisone [Florinef] 0.05 mg PO BID 12/23/20 02/19/25 History Furosemide [Lasix] 20 mg PO DAILY 12/23/20 02/19/25 History Insulin Aspart (For Pump) [NovoLOG 0.01 unit SQ-PUMP CONTINUOUS 12/23/2009/03 History (For Pump)] Isosorbide Mononitrate [Isosorbide 30 mg PO DAILY 12/23/20 02/19/25 History Mononitrate ER] Magnesium Oxide 800 mg PO BID 12/23/20 02/19/25 History Metoprolol Tartrate [Lopressor] 50 mg PO BID 12/23/20 02/19/25 History Potassium Chloride [Klor-Con M10] 20 meq PO BID 12/23/20 02/19/25 History Tamsulosin [Flomax] 0.4 mg PO DAILY 12/23/20 02/19/25 History lisinopriL [Zestril] 2.5 mg PO DAILY 12/23/20 02/19/25 History rOPINIRole HCL [Requip] 2 mg PO DAILY 12/23/20 02/19/25 History Docusate [Colace] 100 mg PO BID #60 capsule 06/16/22 02/19/25 Rx levETIRAcetam [Keppra] 1,000 mg PO HS 11/24/22 02/19/25 History Albuterol Inhaler [Ventolin Hfa 2 puff INHALATION RT-Q4H PRN 11/17/24 02/19/25 History Inhaler] Ferrous Sulfate [Iron (65 MG 325 mg PO DAILY 11/17/24 02/19/25 History Elemental)] Levothyroxine Sodium [Synthroid] 50 mcg PO DAILY 11/17/24 02/19/25 History Zaleplon [Sonata] 5 mg PO HS 11/17/24 02/19/25 History traMADol HCL 50 mg PO BID PRN 11/17/24 02/19/25 History Gabapentin 600 mg PO TID 02/19/25 02/19/25 History Nitroglycerin Sl Tabs [Nitrostat] 0.4 mg SUBLINGUAL Q5M PRN 02/19/25 02/19/25 History Pantoprazole Sodium [Protonix] 20 mg PO DAILY 02/19/25 02/19/25 History Denosumab [Prolia] 02/21/25 History Allergies Allergy/AdvReac Type Severity Reaction Status Date / Time No Known Allergies Allergy Verified 02/19/25 09:54 Physical Examination Physical exam: Patient is awake, alert, and oriented 3 Vital signs stable Adequate chest excursion with deep inspiration and expiration Examination of lumbar spine reveals skin is intact with no abrasions, lacerations, or bruises; no erythema, purulence or signs of infection No pain with palpation over the lumbar spine Dorsiflexion, plantarflexion, and extensor hallucis longus positive sustained bilaterally Lower extremity strength 5/5 bilaterally Straight leg test negative bilateral lower extremities No signs or symptoms of DVT; no calf pain No pain with internal and external rotation of the hips bilaterally Neurovascularly intact Davison catheter intact Well-healed incisions over the anterior knees Results Pertinent studies: CT of the lumbar spine taken on 02/23/2025: No acute fracture or traumatic subluxation of the lumbosacral spine; L4-5 sclerosis with erosive endplate change most likely to reflect chronic degenerative change in which discitis osteomyelitis and could obtain further imaging if clinically warranted - Labs Labs: Abnormal Lab Results - Last 24 Hours (Table) 02/25/25 02/25/25 02/25/25 Range/Units 12:07 17:10 18:23 Potassium (3.5-5.5) mmol/L Chloride (96-109) mmol/L Est GFR (CKD-EPI) (>=60) POC Glucose (mg/dL) 337 H 206 H (70-110) mg/dL Calcium (8.7-10.3) mg/dL Albumin (3.8-4.9) g/dL Ur Leukocyte Esterase Trace H (Negative) Urine Bacteria Rare H (None) /hpf Urine Mucus Rare H (None) /hpf 02/26/25 02/26/25 Range/Units 01:57 06:24 Potassium 3.4 L (3.5-5.5) mmol/L Chloride 110 H (96-109) mmol/L Est GFR (CKD-EPI) 54 L (>=60) POC Glucose (mg/dL) 111 H (70-110) mg/dL Calcium 6.3 A* (8.7-10.3) mg/dL Albumin 2.7 L (3.8-4.9) g/dL Ur Leukocyte Esterase (Negative) Urine Bacteria (None) /hpf Urine Mucus (None) /hpf H & H 02/19/25 02/20/25 02/21/25 Range/Units 03:05 05:31 06:56 Hgb 10.5 L 8.8 L 9.2 L (13.0-17.0) g/dL Hct 31.3 L 27.9 L 28.8 L (39.6-50.0) % Result Diagrams: 02/21/25 06:56 02/26/25 06:24 Assessment and Plan Assessment: Assessment: Chronic low back pain, currently controlled L4-5 sclerosis with degenerative erosive endplate change Hypercalcemia Osteoporosis Coronary artery disease Heart failure COPD Diabetes mellitus Hypertension Hyperlipidemia History myocardial infarction Prostate disorder Thyroid disorder Insulin pump Pacemaker History of coronary bypass History total knee arthroplasty performed bilaterally History neurologic disorder (1) Chronic low back pain Current Visit: Yes Status: Acute Code(s): M54.50 - LOW BACK PAIN, UNSPECIFIED; G89.29 - OTHER CHRONIC PAIN SNOMED Code(s): 056804076 (2) Degeneration of L4-L5 intervertebral disc Current Visit: Yes Status: Acute Code(s): M51.369 - OTH INTVRT DISC DEGEN, LUM RGN W/O LUM BCK OR LW EXTRM PAIN SNOMED Code(s): 31038685 (3) Osteoporosis Current Visit: Yes Status: Acute Code(s): M81.0 - AGE-RELATED OSTEOPOROSIS W/O CURRENT PATHOLOGICAL FRACTURE SNOMED Code(s): 35479755 (4) Hypercalcemia Current Visit: Yes Status: Acute Code(s): E83.52 - HYPERCALCEMIA SNOMED Code(s): 04012793 (5) COPD (chronic obstructive pulmonary disease) Current Visit: Yes Status: Acute Code(s): J44.9 - CHRONIC OBSTRUCTIVE PULMONARY DISEASE, UNSPECIFIED SNOMED Code(s): 43278633 (6) Heart disease Current Visit: Yes Status: Acute Code(s): I51.9 - HEART DISEASE, UNSPECIFIED SNOMED Code(s): 61806679 (7) History of coronary artery bypass graft Current Visit: Yes Status: Acute Code(s): Z95.1 - PRESENCE OF AORTOCORONARY BYPASS GRAFT SNOMED Code(s): 654270402 (8) Diabetes mellitus Current Visit: Yes Status: Acute Code(s): E11.9 - TYPE 2 DIABETES MELLITUS WITHOUT COMPLICATIONS SNOMED Code(s): 36666864 (9) Hypertension Current Visit: Yes Status: Acute Code(s): I10 - ESSENTIAL (PRIMARY) H YPERTENSION SNOMED Code(s): 81818212 (10) Prostate disorder Current Visit: Yes Status: Acute Code(s): N42.9 - DISORDER OF PROSTATE, UNSPECIFIED SNOMED Code(s): 51581521 (11) Thyroid disorder Current Visit: Yes Status: Acute Code(s): E07.9 - DISORDER OF THYROID, UNSPECIFIED SNOMED Code(s): 45351250 (12) History of myocardial infarction Current Visit: Yes Status: Acute Code(s): I25.2 - OLD MYOCARDIAL INFARCTION SNOMED Code(s): 652277639 (13) Pacemaker Current Visit: Yes Status: Acute Code(s): Z95.0 - PRESENCE OF CARDIAC PACEMAKER SNOMED Code(s): 487741286 (14) Insulin pump in place Current Visit: Yes Status: Acute Code(s): Z96.41 - PRESENCE OF INSULIN PUMP (EXTERNAL) (INTERNAL) SNOMED Code(s): 201112817 (15) Neurologic disorder Current Visit: Yes Status: Acute Code(s): G98.8 - OTHER DISORDERS OF NERVOUS SYSTEM SNOMED Code(s): 622106814 (16) CAD (coronary artery disease) Current Visit: No Status: Acute Code(s): I25.10 - ATHSCL HEART DISEASE OF [place] CORONARY ARTERY W/O ANG PCTRS SNOMED Code(s): 62072157 (17) Hyperlipidemia Current Visit: No Status: Acute Code(s): E78.5 - HYPERLIPIDEMIA, UNSPECIFIED SNOMED Code(s): 74251840 (18) Status post total left knee replacement Current Visit: No Status: Acute Priority: Medium Code(s): Z96.652 - PRESE NCE OF LEFT ARTIFICIAL KNEE JOINT SNOMED Code(s): 4577096424673 (19) Status post total right knee replacement Current Visit: No Status: Acute Code(s): Z96.651 - PRESENCE OF RIGHT ARTIFICIAL KNEE JOINT SNOMED Code(s): 0855901312108 Plan: Plan: 1. Patient is a very pleasant 70-year-old male who is seen examined for his lumbar spine after consultation was placed for further evaluate for possible discitis after further imaging was obtained. Patient admits to some chronic low back pain but states he switched to a mattress 2 to 3 years ago and since that time his back pain is actually better controlled. He does not have any acute back pain currently. He is not complaining of lower extremity weakness or radiculopathy. He is able to perform good active range of motion of his lower extremities independently without difficulty. Imaging was reviewed by infectious disease who felt it was unlikely the patient had osteomyelitis/discitis. Imaging was also reviewed by Dr. Marv Benavides who also felt it was unlikely the patient had osteomyelitis discitis. He does have degenerative change at his lumbar spine. Patient denies fever or chills. He does not have an elevated WBC. He does have L4-5 degenerative change with erosive endplate change. Patient does not clinically appear to have o steomyelitis/discitis. He also has a pacemaker and is unable to have MRI imaging. Currently, we would plan to have the patient continue with conservative treatment and treat his imaging as degenerative change. He feels his back pain has been controlled over the past several years. Patient is cory ared for discharge from orthopedic spine standpoint. We will currently plan to have him follow-up in the outpatient setting. Patient may follow-up with Mikie Garcia PA-C or Dr. Marv Benavides at [facility] in 2-3 weeks following discharge. 2. Patient has significant other medical diagnoses and is being seen by multiple other medical providers. He will need clearance by these medical providers prior to discharge. They may be planning for discharge to a rehabilitation facility today. Time with Patient: Greater than 30 (Including obtaining history, physical examination, reviewing of imaging, and dictation.)
[2025-02-26 12:15] LABS: Glucose,Whole Blood 161 mg/dL (70-110)
[2025-02-26 12:39] VITALS: BMI 20.6
--- NOTE | 2025-02-26 13:15 | P.PN ---
Subjective Progress Note Date: 02/25/25 Principal diagnosis: Reason for follow-up is abnormal CT with a question of discitis/osteomyelitis patient is a 70-year-old male with a past medical history significant for Coronary Artery Disease (CAD), Heart Failure, COPD, Diabetes Mellitus, GERD/Reflux, Hyperlipidemia, Hypertension, Myocardial Infarction ([place]), Neurologic Disorder, Osteoarthritis (OA), Prostate Disorder, Thyroid Disorder presenting to the hospital about a week ago for evaluation of unable to get up out of the bed and weakness, patient workup did show CT of the lumbosacral spine that was concerning for possible discitis/osteo myelitis versus degenerative changes at L4-L5 prompting this consultation 02/25/2025,the patient denies any fever or any chills, patient is breathing comfortably on room air, the patient denies chest pain shortness of breath and no significant cough, patient denies abdominal pain, no nausea vomiting or diarrhea. Patient mention overall improvement in the lower back pain is lower extremity weakness feeling better. Patient did have a sed rate of 21 creatinine 1.1 urine has been negative Objective - Vital Signs Vital signs: Vital Signs Temp 98.2 F 02/25/25 14:00 Pulse 57 L 02/25/25 14:00 Resp 18 02/25/25 14:00 BP 121/64 02/25/25 14:00 Pulse Ox 96 02/25/25 07:16 FiO2 Intake & Output 02/24/25 02/25/25 02/25/25 18:59 06:59 18:59 Intake Total 3200 Output Total 1200 2450 1000 Balance 2000 -2450 -1000 Intake: Oral 3200 Output: Urine 1200 2450 1000 Uretheral (Davison) 600 Other: # Voids 1 # Bowel Movements 1 1 1 - Exam GENERAL DESCRIPTION: An elderly male lying in bed in no distress RESPIRATORY SYSTEM: Unlabored breathing , decreased breath sounds at bases HEART: S1 S2 regular rate and rhythm , ABDOMEN: Soft , no tenderness EXTREMITIES: No edema feet - Labs CBC & Chem 7: 02/21/25 06:56 02/26/25 06:24 Labs: Abnormal Lab Results - Last 24 Hours (Table) 02/24/25 02/24/25 02/24/25 Range/Units 17:18 17:30 17:34 ESR (0-20) mm/Hr Glucose (70-110) mg/dL POC Glucose (mg/dL) 58 L 59 L (70-110) mg/dL Calcium (8.7-10.3) mg/dL C-Reactive Protein 4.1 H (<1.0) mg/dL 02/24/25 02/25/25 02/25/25 Range/Units 20:11 01:49 02:03 ESR (0-20) mm/Hr Glucose (70-110) mg/dL POC Glucose (mg/dL) 235 H 50 L 69 L (70-110) mg/dL Calcium (8.7-10.3) mg/dL C-Reactive Protein (<1.0) mg/dL 02/25/25 02/25/25 02/25/25 Range/Units 05:51 05:51 07:52 ESR 21 H (0-20) mm/Hr Glucose 124 H (70-110) mg/dL POC Glucose (mg/dL) 112 H (70-110) mg/dL Calcium 5.9 A* (8.7-10.3) mg/dL C-Reactive Protein (<1.0) mg/dL 02/25/25 Range/Units 12:07 ESR (0-20) mm/Hr Glucose (70-110) mg/dL POC Glucose (mg/dL) 337 H (70-110) mg/dL Calcium (8.7-10.3) mg/dL C-Reactive Protein (<1.0) mg/dL Assessment and Plan (1) Abnormal CT scan, lumbar spine Current Visit: Yes Status: Acute Code(s): R93.7 - ABNORMAL FINDINGS ON DIAGNOSTIC IMAGING OF PRT MS SYS SNOMED Code(s): 069702086 Plan: 1patient with an abnormal CT of the lumbar spine concerning for possible L4-5 discitis/osteomyelitis in this patient clinically not behaving as discitis or osteomyelitis with no fever elevated white count did not have any spinal tenderness on clinical examination or any swelling or redness at the lumbosacral spine however will need to be ruled out and investigated further 2-patient did have a normal sed rate currently waiting for MRI of the lumbosacral spine to be completed 3-we will hold on adding any systemic antibiotic therapy at this point to increase the yield of any culture that may need to be done if the MRI is also abnormal Multiple question concern answered Dictation was produced using dragon dictation software. please excuse any grammatical, word or spelling errors. Time with Patient: Less than 30
--- NOTE | 2025-02-26 13:16 | P.PN ---
Subjective Progress Note Date: 02/26/25 Principal diagnosis: Reason for follow-up is abnormal CT with a question of discitis/osteomyelitis patient is a 70-year-old male with a past medical history significant for Coronary Artery Disease (CAD), Heart Failure, COPD, Diabetes Mellitus, GERD/Reflux, Hyperlipidemia, Hypertension, Myocardial Infarction ([place]), Neurologic Disorder, Osteoarthritis (OA), Prostate Disorder, Thyroid Disorder presenting to the hospital about a week ago for evaluation of unable to get up out of the bed and weakness, patient workup did show CT of the lumbosacral spine that was concerning for possible discitis/osteo myelitis versus degenerative changes at L4-L5 prompting this consultation On today's evaluation that is 02/26/2025,the patient remains to be afebrile, patient is on room air not requiring supplemental oxygen and denies any shortness of breath no chest pain or cough.Patient denies having any nausea or vomiting, no abdominal pain and no diarrhea has been reported patient overall feeling better improvement in lower back pain as a lower extremity symptoms feeling better wants to go home. Patient did have a creatinine 1.4 Objective - Vital Signs Vital signs: Vital Signs Temp 97.4 F L 02/26/25 07:21 Pulse 76 02/26/25 08:00 Resp 18 02/26/25 08:00 BP 112/59 02/26/25 07:21 Pulse Ox 99 02/26/25 07:21 FiO2 Intake & Output 02/25/25 02/26/25 02/26/25 18:59 06:59 18:59 Intake Total 580 Output Total 2600 2600 450 Balance -2600 -2600 130 Intake: Oral 580 Output: Urine 2600 2600 450 Uretheral (Davison) 450 Other: # Bowel Movements 2 2 1 - Exam GENERAL DESCRIPTION: An elderly male lying in bed in no distress RESPIRATORY SYSTEM: Unlabored breathing , decreased breath sounds at bases HEART: S1 S2 regular rate and rhythm , ABDOMEN: Soft , no tenderness EXTREMITIES: No edema feet - Labs CBC & Chem 7: 02/21/25 06:56 02/26/25 06:24 Labs: Abnormal Lab Results - Last 24 Hours (Table) 02/25/25 02/25/25 02/26/25 Range/Units 17:10 18:23 01:57 Potassium (3.5-5.5) mmol/L Chloride (96-109) mmol/L Est GFR (CKD-EPI) (>=60) POC Glucose (mg/dL) 206 H 111 H (70-110) mg/dL Calcium (8.7-10.3) mg/dL Albumin (3.8-4.9) g/dL Ur Leukocyte Esterase Trace H (Negative) Urine Bacteria Rare H (None) /hpf Urine Mucus Rare H (None) /hpf 02/26/25 02/26/25 Range/Units 06:24 12:14 Potassium 3.4 L (3.5-5.5) mmol/L Chloride 110 H (96-109) mmol/L Est GFR (CKD-EPI) 54 L (>=60) POC Glucose (mg/dL) 161 H (70-110) mg/dL Calcium 6.3 A* (8.7-10.3) mg/dL Albumin 2.7 L (3.8-4.9) g/dL Ur Leukocyte Esterase (Negative) Urine Bacteria (None) /hpf Urine Mucus (None) /hpf Assessment and Plan (1) Abnormal CT scan, lumbar spine Current Visit: Yes Status: Acute Code(s): R93.7 - ABNORMAL FINDINGS ON DIAGNOSTIC IMAGING OF PRT MS EDISON SNOMED Code(s): 305077383 Plan: 1patient with an abnormal CT of the lumbar spine concerning for possible L4-5 discitis/osteomyelitis in this patient clinically not behaving as discitis or osteomyelitis with no fever elevated white count did not have any spinal tenderness on clinical examination or any swelling or redness at the lumbosacral spine however will need to be ruled out and investigated further 2-patient did have a normal sed rate apparently MRI could not be done as the machine is broken as reported by the patient patient has been evaluated by orthopedics/spine surgery who thinks that the CT findings are related to advanced osteoarthritis than discitis and the plan to do MRI as an outpatient as a clinical suspicion is remains to be low for discitis/osteomyelitis patient may go home no antibiotic discussed with the LICENSED PHARMACIST for admitting team Multiple question concern answered Dictation was produced using Luminalation software. please excuse any grammatical, word or spelling errors. Time with Patient: Less than 30
[2025-02-26 13:45] VITALS: BP 136/61; PULSE 53; RESP 16
== END 2025-02-26 14:58 | disposition home health service (06) | DRG 640 ==
LOC: EC 02:09 → OBSVTOIN 04:36 → 5NMEDONC 04:36
PROVIDERS: ADMIT Hospitalist; ATTEND Hospitalist
DX: E83.51 Hypocalcemia (principal); N17.0 Acute kidney failure with tubular necrosis; I13.0 Hypertensive heart and chronic kidney disease with heart failure and stage 1 through stage 4 chronic kidney disease, or unspecified chronic kidney disease; G20.A1 Parkinson's disease without dyskinesia, without mention of fluctuations; E03.9 Hypothyroidism, unspecified; D53.9 Nutritional anemia, unspecified; E10.22 Type 1 diabetes mellitus with diabetic chronic kidney disease; D50.9 Iron deficiency anemia, unspecified; J44.9 Chronic obstructive pulmonary disease, unspecified; N18.31 Chronic kidney disease, stage 3a; N13.30 Unspecified hydronephrosis; E10.40 Type 1 diabetes mellitus with diabetic neuropathy, unspecified; E10.65 Type 1 diabetes mellitus with hyperglycemia; I48.91 Unspecified atrial fibrillation; Z79.4 Long term (current) use of insulin; I50.9 Heart failure, unspecified; M50.323 Other cervical disc degeneration at C6-C7 level; T45.1X5A Adverse effect of antineoplastic and immunosuppressive drugs, initial encounter; Z79.890 Hormone replacement therapy; E87.6 Hypokalemia; E83.42 Hypomagnesemia; E78.5 Hyperlipidemia, unspecified; E83.52 Hypercalcemia; G89.29 Other chronic pain; I25.10 Atherosclerotic heart disease of native coronary artery without angina pectoris; I25.2 Old myocardial infarction; I25.5 Ischemic cardiomyopathy; K21.9 Gastro-esophageal reflux disease without esophagitis; K44.9 Diaphragmatic hernia without obstruction or gangrene; M47.812 Spondylosis without myelopathy or radiculopathy, cervical region; E55.9 Vitamin D deficiency, unspecified; N18.9 Chronic kidney disease, unspecified; T50.2X5A Adverse effect of carbonic-anhydrase inhibitors, benzothiadiazides and other diuretics, initial encounter; M47.817 Spondylosis without myelopathy or radiculopathy, lumbosacral region; M81.0 Age-related osteoporosis without current pathological fracture; N32.89 Other specified disorders of bladder; Z79.02 Long term (current) use of antithrombotics/antiplatelets; Z79.82 Long term (current) use of aspirin; Z79.899 Other long term (current) drug therapy; Z87.891 Personal history of nicotine dependence; Z95.1 Presence of aortocoronary bypass graft; Z96.41 Presence of insulin pump (external) (internal); Z95.810 Presence of automatic (implantable) cardiac defibrillator; Z96.653 Presence of artificial knee joint, bilateral; X58.XXXA Exposure to other specified factors, initial encounter; Z98.42 Cataract extraction status, left eye; Z98.41 Cataract extraction status, right eye; N40.1 Benign prostatic hyperplasia with lower urinary tract symptoms; R33.8 Other retention of urine; Z87.19 Personal history of other diseases of the digestive system
CPT/HCPCS: 36415; 70450; 72050; 72125; 72131; 74176; 76770; 80048; 80053; 80061; 81001; 82040; 82306; 82310; 82330; 82607; 82728; 82746; 82784; 83036; 83540; 83550; 83735; 83921; 83970; 84100; 84207; 84443; 85025; 85652; 86038; 86140; 86235; 86334; 86618; 93005; 96365; 96366; 96368; 99285